=== PATIENT | male | born 2005 | race Caucasian/White ===

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

== ENCOUNTER 2023-01-08 14:36 | Emergency (ER) | payer BC, SELFPAY ==
--- NOTE | ~2023-01-08 | XR_ITS ---
EXAM: XR hand RT min 3V DATE: 01/08/2023 14:48 HISTORY: injury, RIGHT HAND 5TH METACARPAL LATERAL LACERATION, PAIN . COMPARISON: None available. FINDINGS: Normal mineralization. No fracture or dislocation. No lytic or blastic lesion. Joint space s are maintained. No erosion or periosteal change. Soft tissue defect over the medial aspect of the h and. IMPRESSION: No acute osseous finding in the right hand. Reviewed, dictated and finalized at location K.
[2023-01-08 15:06] VITALS: BP 110/62; PULSE 82; RESP 18; TEMP 36.5; O2SAT 100
--- NOTE | 2023-01-08 17:25 | ED.GENADULT ---
HPI - General Adult General Chief complaint: Wound/Laceration Stated complaint: hand injury Time Seen by Provider: 01/08/23 17:00 Source: patient Mode of arrival: ambulatory Limitations: no limitations History of Present Illness HPI narrative: This is a 17-year-old male who presents to the ED with chief complaint of right hand injury occurring around 11 AM this morning. Patient reports that he was working with a piece of cardboard and a 2 x 4 board when the 2 x 4 splintered off and punctured his right hand. Reports location of wound is the ulnar right hand. Reports bleeding controlled. Denies any further site of pain or injury. Denies numbness. He has a complaint of difficulty with adduction the R hand pinky. Related Data Home Medications Medication Instructions Recorded Confirmed No Home Medications 03/11/20 10/07/20 Allergies Allergy/AdvReac Type Severity Reaction Status Date / Time amoxicillin Allergy Mild Rash Verified 01/08/23 16:45 PMFSH Past Medical History Medical History Healthy adult male Surgical History Surgical History H/O elbow surgery History of adenoidectomy History of placement of ear tubes Family History Family History Other Carcinoma of colon Cerebrovascular accident Depression Diabetes mellitus Heart disease Hypertension Liver cancer Uterine cancer Social History Social History Substance use type: hallucinogens Gender identity (if verbalized by the patient): Male Exam Narrative: GENERAL: Well-appearing, well-nourished, and in no acute distress. HEAD: Normocephalic, atraumatic. EYES: PERRLA and EOMI. ENT: Nares clear, no rhinorrhea or epistaxis. Mucous membranes moist. Oropharynx without tonsillar hypertrophy exudate or other lesions. NECK: Supple. No adenopathy or masses. CHEST: No respiratory distress. Clear to auscultation. No wheezes rales or rhonchi HEART: Regular rate and rhythm. No murmur heard. Normal peripheral pulses. ABDOMEN: Soft, nontender, nondistended, normal active bowel sounds. MSK: RUE: He is able to fully make a fist and extend all digits of the right hand. No obvious deformity. No bruising. Minimal tenderness throughout the hand. LUE: Benign SKIN: Small superficial puncture wound laceration to the right hand mid MCP area. No active bleeding. No overt contamination. NEURO: Alert and oriented x3. No focal deficits. Neurovascularly intact distally throughout the extremities. PSYCH: Normal mood and affect. Course Vital Signs Vital signs: Vital Signs Temperature 97.7 F 01/08/23 15:06 Pulse Rate 82 01/08/23 15:06 Respiratory Rate 18 01/08/23 15:06 Blood Pressure 110/62 01/08/23 15:06 Pulse Oximetry 100 01/08/23 15:06 Temperature 97.7 F 01/08/23 15:06 Pulse Rate 82 01/08/23 15:06 Respiratory Rate 18 01/08/23 15:06 Blood Pressure 110/62 01/08/23 15:06 Pulse Oximetry 100 01/08/23 15:06 Procedures Laceration Laceration 1: Date: 01/08/23 Time: 18:10 Site: hand Side (If applicable): right Size (cm): 1 Description: irregular Depth: simple, single layer Pre-repair: wound explored, irrigated extensively and deep structures intact ====== Skin Level ====== Skin layer closed with: steri strips ====== Subcutaneous Layer ====== ====== Muscle Layer ====== ====== Tendon Layer ====== Dressin steri strip Medical Decision Making [facility] Narrative Medical decision making narrative: This is a 17-year-old male who presents to the ED with chief complaint of right hand injury occurring at work today. He has a small 1 cm, superficial laceration to the ulnar right hand. Vitals are normal.
== END 2023-01-08 18:25 | disposition home or self-care (01) ==
PROVIDERS: Emergency Provider Physician Assistant
DX: S61.411A Laceration without foreign body of right hand, initial encounter (principal); W45.8XXA Other foreign body or object entering through skin, initial encounter
CPT/HCPCS: 73130; 99283

== ENCOUNTER 2023-05-15 19:16 | Emergency (ER) | payer MEDICAID, SELFPAY ==
--- NOTE | 2023-05-15 19:32 | ED.URI ---
HPI - URI/Sore Throat General Stated Complaint: sorethroat Time Seen by Provider: 05/15/23 19:32 Source: patient Mode of arrival: ambulatory Limitations: no limitations History of Present Illness HPI Narrative: Yovani is a 17-year-old male patient presenting to the clinic today with complaints of a sore throat x1 day. He reports his sore throat got worse today and he developed a headache. Does have slight congestion and a cough as well. No fever or chills. No known exposure to anyone with COVID, flu, or strep. MD elicited complaint: cough, sore throat and nasal congestion Related Data Home Medications Medication Instructions Recorded Confirmed No Home Medications 03/11/20 05/15/23 Allergies Allergy/AdvReac Type Severity Reaction Status Date / Time amoxicillin AdvReac Mild Rash Verified 05/15/23 19:37 Review of Systems Review of Systems: Pertinent positives per HPI. Patient denies any fever, chills, rash, headache, visual changes, dizziness, shortness of breath, chest pain, palpitations, nausea, vomiting, diarrhea, constipation, abdominal pain, or any urinary issues. PMFSH Past Medical History Medical History Healthy adult male Surgical History Surgical History H/O elbow surgery History of adenoidectomy History of placement of ear tubes Family History Family History Other Carcinoma of colon Cerebrovascular accident Depression Diabetes mellitus Heart disease Hypertension Liver cancer Uterine cancer Social History Social History Substance use type: hallucinogens Gender identity (if verbalized by the patient): Male Comments At the time of my signature, I reviewed and agree with the nursing past medical, surgical, social, and family history. There is no relevant family history pertinent to the patient complaint. Exam Narrative: General: Well-developed, well nourished, in no apparent distress Head: Normocephalic, atraumatic Eyes: Pupils equally round and reactive to light bilaterally, EOM intact, sclera and conjunctive clear, no discharge, lids normal Ears: TMs intact and clear, ear canals clear, no drainage, grossly hearing normal. Nose: Nares patent, clear nasal discharge, no inflammation, no sinus tenderness. Mouth: Oral pharynx without lesions or masses, good dentition, MMM. Neck: Supple, trachea midline, no enlargement of anterior or posterior cervical nodes, no thyroid masses or goiter palpable. Cardio: Regular rate and rhythm, s1 and s2 normal, no murmur appreciated. Resp: Clear to auscultation bilaterally, no rhonchi, rales, wheezing or rubs Course Course Emergency Course: Portions of this record may have been created with voice recognition software. Level of Care: Express Care Visit Vital Signs Vital signs: Vital signs reviewed MDM - URI/Sore Throat MDM Narrative Medical decision making narrative: At the time of visit patient is resting comfortably on the exam table. Strep screen was obtained and negative in the clinic today. I suspect patient has URI pharyngitis. Patient is nontoxic appearing. Supportive measures were discussed with the patient he voiced understanding discharge instructions agrees to treatment plan. Differential Diagnosis Differential diagnosis: Likely upper respiratory infection, otitis media, sinusitis, viral infection, bronchitis, influenza, pharyngitis and other (COVID) Discharge Plan Discharge Clinical Impression: Pharyngitis Qualifiers: Pharyngitis/tonsillitis etiology: unspecified etiology Qualified Code(s): J02.9 - Acute pharyngitis, unspecified URI (upper respiratory infection) Qualifiers: URI type: unspecified URI Qualified Code(s): J06.9 - Acute upper respiratory infection, unspecified
[2023-05-15 19:34] VITALS: BP 133/74; PULSE 88; RESP 16; TEMP 36.3; O2SAT 98
== END 2023-05-15 19:52 | disposition home or self-care (01) ==
PROVIDERS: Emergency Provider Nurse Practitioner Family; PCP Pediatrics
DX: J02.9 Acute pharyngitis, unspecified (principal); J06.9 Acute upper respiratory infection, unspecified
CPT/HCPCS: 87081; 87880; 99213; G0463

== ENCOUNTER 2023-06-04 21:32 | Emergency (ER) | payer SELFPAY ==
[2023-06-04 21:59] VITALS: BP 133/66; PULSE 69; RESP 15; TEMP 36.5; O2SAT 100
--- NOTE | 2023-06-04 22:33 | PC.NURSE ---
Patient was called out by triage desk with no answer
--- NOTE | 2023-06-04 22:42 | PC.NURSE ---
Patient again called to triage desk with no answer
== END 2023-06-04 22:33 | disposition left against medical advice (07) ==
PROVIDERS: PCP Pediatrics
DX: H92.02 Otalgia, left ear (principal)
CPT/HCPCS: 99199

== ENCOUNTER 2023-06-17 16:25 | Emergency (ER) | payer MEDICAID, SELFPAY ==
[2023-06-17 16:47] VITALS: BP 134/75; PULSE 99; RESP 18; TEMP 36.4; O2SAT 100
[2023-06-17 17:01] LABS: Basophils Percent Auto 0.3 % (0.2-1.2); Eosinophils Absolute Auto 0.1 K/mm3 (0-0.3); Eosinophils Percent Auto 0.3 % (0-4.4); Hematocrit 50.6 % (42.0-52.0); Hemoglobin 17.3 g/dL (14.0-18.0); Immature Granulocyte Absolute 0.06 K/mm3 (0.00-0.031); Immature Granulocyte Percent A 0.4 % (0-0.5); Lymphocytes Absolute Auto 0.37 K/mm3 (0.9-3.2); Lymphocytes Percent Auto 2.4 % (18.3-44.2); Mean Corpuscular HGB Conc 34.2 g/dl (32-36); Mean Corpuscular Hemoglobin 30.1 pg (26-34); Mean Corpuscular Volume 88.2 fl (80-100); Mean Platelet Volume 9.3 fl (7.4-10.4); Monocytes Absolute Auto 0.7 K/mm3 (0.1-0.6); Monocytes Percent Auto 4.5 % (2.6-8.5); Neutrophils Absolute Auto 13.9 K/mm3 (1.3-6.7); Neutrophils Percent Auto 92.1 % (45.5-73.1); Platelet Count Result 139 k/mm3 (150-375); Red Blood Count 5.74 M/mm3 (4.6-6.20); White Blood Count 15.1 K/mm3 (4.5-10.0)
[2023-06-17 17:39] LABS: Alanine Aminotransferase 19 U/L (6-50); Alkaline Phosphatase 91 U/L (58-237); Anion Gap 12 mmol/L (8-16); Aspartate Amino Transferase 23 U/L (17-59); Blood Urea Nitrogen 15 mg/dL (8-21); Calcium 9.5 mg/dL (8.9-10.7); Carbon Dioxide 22 mmol/L (22-30); Chloride 106 mmol/L (98-107); Estimated CRCL calculation 160 ml/min; Estimated Glomerular Filt Rate > 60; Glucose 116 mg/dL (65-110); Lipase 46 U/L (23-300); Sodium 140 mmol/L (134-143)
[2023-06-17] MEDS: MORPHINE SULFATE (*CRX) 4 MG/ML INJ IV PUSH (19:07)
[2023-06-17] MEDS: ONDANSETRON INJ 4 MG/2 ML VIAL IV PUSH (19:07)
[2023-06-17] MEDS: SODIUM CHLORIDE 0.9% IV 1,000 ML 999 ML IV CONT (19:07)
[2023-06-17 19:11] LABS: Appearance Urine Clear (Clear); Bacteria Urine None Seen /hpf; Bilirubin Urine 1+ (Negative); Blood Urine Negative (Negative); Color Urine Dark Yellow (Yellow); Glucose Urine UA Negative (Negative); Ketones Urine 1+ mg/dL (Negative); Leukocyte Esterase Ur Trace LEU/UL (Negative); Nitrate Urine Negative (Negative); Protein Urine 1+ mg/dL (Negative); RBC Urine 0-2 /hpf (0-2); Squamous Epithelial Cell Urine None seen /hpf (Few); WBC Urine 0-5 /hpf; pH Urine 7.5 (5.0-9.0)
[2023-06-17 19:12] LABS: Specific Grav Ur 1.037 (1.001-1.035)
[2023-06-17 19:13] LABS: Add Urine Microscopic? YES
--- NOTE | 2023-06-17 19:58 | ED.ABDPAIN ---
HPI - Abdominal Pain General Chief Complaint: Abdominal Pain Stated Complaint: stomach issues Time Seen by Provider: 06/17/23 17:30 History of Present Illness HPI narrative: Patient is a 17-year-old male who presents ER with abdominal cramping and pain. Sudden onset this morning. Reports numerous episodes of emesis and diarrhea. No known sick contacts. Reports he ate some chicken salad last night but so did the rest of his family and they are not sick. No blood in his stool. No fevers or chills. No alleviating factors at home. Related Data Allergies Allergy/AdvReac Type Severity Reaction Status Date / Time amoxicillin AdvReac Mild Rash Verified 05/15/23 19:37 Review of Systems Review of Systems: All systems reviewed & are unremarkable except as noted in HPI and below Constitutional: Constitutional: Reports no additional constitutional complaints ENT: Reports system reviewed and no additional complaints, except as documented Cardiovascular: Cardiovascular: Reports no additional cardiovascular complaints Respiratory: Respiratory: Reports no additional respiratory complaints Gastrointestinal: Gastrointestinal: Reports abdominal pain, Denies constipation, Reports diarrhea, Reports nausea and Reports vomiting Genitourinary: Genitourinary: Reports no additional male genitourinary complaints [facility] Past Medical History Medical History Healthy adult male Surgical History Surgical History H/O elbow surgery History of adenoidectomy History of placement of ear tubes Family History Family History Other Carcinoma of colon Cerebrovascular accident Depression Diabetes mellitus Heart disease Hypertension Liver cancer Uterine cancer Social History Social History Substance use type: hallucinogens Gender identity (if verbalized by the patient): Male Exam Narrative: GENERAL: Fatigued-appearing, well-nourished, and in no acute distress. HEAD: Normocephalic, atraumatic. ENT: Mucous membranes moist. NECK: Supple. CHEST: Clear to auscultation. No respiratory distress. HEART: Regular rate and rhythm. Normal peripheral pulses. ABDOMEN: Soft, diffuse abdominal discomfort without localizing tenderness, nondistended. EXTREMITIES: Normal range of motion. No edema. SKIN: Warm, dry, no rash. NEURO: Alert and oriented x3. PSYCH: Normal mood and affect. Course Course Emergency Course: patient received morphine and Bentyl for abdominal pain and cramping. Zofran for nausea vomiting. Hydrated. Patient felt appropriate for discharge home and it is not felt patient needs advanced imaging is repeat exam demonstrates no localizing pain. Vital Signs Vital signs: Vital Signs Temperature 97.5 F L 06/17/23 16:47 Pulse Rate 99 06/17/23 16:47 Respiratory Rate 18 06/17/23 16:47 Blood Pressure 134/75 06/17/23 16:47 Pulse Oximetry 100 06/17/23 16:47 Oxygen Delivery Room Air 06/17/23 16:47 Temperature 97.5 F L 06/17/23 16:47 Pulse Rate 99 06/17/23 16:47 Respiratory Rate 18 06/17/23 16:47 Blood Pressure 134/75 06/17/23 16:47 Pulse Oximetry 100 06/17/23 16:47 Oxygen Delivery Room Air 06/17/23 16:47 MDM - Abdominal Pain Lab Data 06/17/23 16:33 06/17/23 16:33 Labs: Lab Results 06/17/23 06/17/23 Range/Units 16:33 18:45 WBC 15.1 H (4.5-10.0) K/mm3 RBC 5.74 (4.6-6.20) M/mm3 Hgb 17.3 (14.0-18.0) g/dL Hct 50.6 (42.0-52.0) % MCV 88.2 (80-100) fl MCH 30.1 (26-34) pg MCHC 34.2 (32-36) g/dl RDW 12.0 (11.5-14.5) % Plt Count 139 L (150-375) k/mm3 MPV 9.3 (7.4-10.4) fl Immature Gran % (Auto) 0.4 (0-0.5) % Neut % (Auto) 92.1 H (45.5-73.1) % Lymph % (Aut
[2023-06-17] MEDS: DICYCLOMINE HCL INJ 20 MG/2 ML VIAL IM (20:13)
[2023-06-17 20:44] VITALS: BP 132/78; PULSE 92; RESP 15; O2SAT 99
== END 2023-06-17 20:45 | disposition home or self-care (01) ==
PROVIDERS: Emergency Provider Emergency Medicine; PCP Pediatrics
DX: K52.9 Noninfective gastroenteritis and colitis, unspecified (principal)
CPT/HCPCS: 36415; 80053; 81001; 83690; 85025; 96361; 96372; 96374; 96375; 99284; J0500; J2270; J2405; J7030

== ENCOUNTER 2023-11-27 12:03 | Emergency (ER) | payer OTHER, SELFPAY ==
--- NOTE | ~2023-11-27 | XR_ITS ---
Right ankle Technique: AP, oblique, and lateral views were obtained. Clinical History: Injury Findings: No acute fracture or dislocation is seen. Osseous alignment is anatomic. Ankle mortise and other visualized joint spaces are preserved. Soft tissues are otherwise unremarkable. Impression: Unremarkable right ankle. Reviewed, dictated and finalized at location . Impression: Unremarkable right ankle.
--- NOTE | ~2023-11-27 | XR_ITS ---
Right foot Technique: AP, oblique, and lateral views were obtained. Clinical History: Injury Findings: No acute fracture or dislocation is seen. Osseous alignment is anatomic. Joint spaces are p reserved without erosive or degenerative change. Soft tissues are unremarkable. Impression: Unremarkable right foot radiographs. Reviewed, dictated and finalized at location . Impression: Unremarkable right foot radiographs.
[2023-11-27 12:07] VITALS: BP 125/69; PULSE 91; RESP 16; TEMP 36.9; O2SAT 98
--- NOTE | 2023-11-27 13:26 | ED.LOWEXIN ---
HPI - Extremity Injury (Lower) General Chief Complaint: Extremity Injury, Lower Stated Complaint: right foot injury Time Seen by Provider: 11/27/23 12:34 Source: patient Mode of arrival: ambulatory Limitations: no limitations History of Present Illness HPI Narrative: Yovani is a 18-year-old male patient presenting to the emergency room with complaints of right ankle and foot injury. He reports he was at work and a skid caught the back of his foot and smashed his foot. Has bruising over the medial ankle and to the posterior foot with pain in his toes. He reports this occurred prior to arrival. He rates his pain 10 out currently. Related Data Allergies Allergy/AdvReac Type Severity Reaction Status Date / Time amoxicillin AdvReac Mild Rash Verified 11/27/23 12:10 Review of Systems Review of Systems: Pertinent positives per HPI. Patient denies any fever, chills, rash, headache, visual changes, dizziness, cough, runny nose, sore throat, shortness of breath, chest pain, palpitations, nausea, vomiting, diarrhea, constipation, abdominal pain, or any urinary issues. PMFSH Past Medical History Medical History Healthy adult male Surgical History Surgical History H/O elbow surgery History of adenoidectomy History of placement of ear tubes Family History Family History Other Carcinoma of colon Cerebrovascular accident Depression Diabetes mellitus Heart disease Hypertension Liver cancer Uterine cancer Social History Social History Substance use type: hallucinogens Gender identity (if verbalized by the patient): Male Comments At the time of my signature, I reviewed and agree with the nursing past medical, surgical, social, and family history. There is no relevant family history pertinent to the patient complaint. Exam Narrative: General: Well-developed, well nourished, in no apparent distress Head: Normocephalic, atraumatic. Cardio: Regular rate and rhythm, s1 and s2 normal, no murmur appreciated. Resp: Clear to auscultation bilaterally, no rhonchi, rales, wheezing or rubs. Musculoskeletal: No deformity, bruising noted over the medial ankle and the posterior heel, tender to palpation over the posterior heel of the foot, toes, and medial ankle, grossly normal range of motion, muscle strength strong and equal, peripheral pulse strong, no edema, no cyanosis, normal gait and station Course Course Emergency Course: Portions of this record may have been created with voice recognition software. Vital Signs Vital signs: Vital Signs Temperature 36.9 C 11/27/23 12:07 Pulse Rate 91 11/27/23 12:07 Respiratory Rate 16 11/27/23 12:07 Blood Pressure 125/69 11/27/23 12:07 Pulse Oximetry 98 11/27/23 12:07 Oxygen Delivery Room Air 11/27/23 12:07 Temperature 36.9 C 11/27/23 12:07 Pulse Rate 91 11/27/23 12:07 Respiratory Rate 16 11/27/23 12:07 Blood Pressure 125/69 11/27/23 12:07 Pulse Oximetry 98 11/27/23 12:07 Oxygen Delivery Room Air 11/27/23 12:07 Vital signs reviewed MDM - Extremity Injury (Lower) MDM Narrative Medical decision making narrative: At the time of visit patient is resting comfortably on the exam table. Patient appears to be nontoxic. Diagnostics: X-ray of the right foot and ankle were negative for any sign of fracture or malalignment. Plan: I suspect patient has a crush injury to the right foot and ankle. No sign of fracture. No redness or swelling noted at the time that he is in the ER. Patient is able to move joint/extremity. Supportive measures were discussed with the patient and they voiced understanding discharge instructions and agrees to treatment plan. Return precautions reviewed Differential
[2023-11-27] MEDS: HYDROcodone/acetaminophen (*CRX) 5-325 MG TABLET 1 TAB PO (13:32)
== END 2023-11-27 14:29 | disposition home or self-care (01) ==
PROVIDERS: Emergency Provider Nurse Practitioner Family
DX: S90.01XA Contusion of right ankle, initial encounter (principal); S90.31XA Contusion of right foot, initial encounter; W31.9XXA Contact with unspecified machinery, initial encounter
CPT/HCPCS: 73610; 73630; 99283; A9270

== ENCOUNTER 2024-01-15 16:32 | Emergency (ER) | payer OTHER, SELFPAY ==
[2024-01-15 16:34] VITALS: BP 129/73; PULSE 94; RESP 20; TEMP 36.3; O2SAT 99
--- NOTE | 2024-01-15 17:10 | ED.WOUNDLAC ---
HPI - Wound/Laceration General Chief Complaint: Wound/Laceration Stated Complaint: spider bite Time Seen by Provider: 01/15/24 16:57 Source: patient Mode of arrival: ambulatory Limitations: no limitations History of Present Illness HPI narrative: Patient is a 18-year-old male who presents the ED with report of a wound to his left lower leg. Patient reports he 1st noticed an area of redness to his left lower lateral leg 1.5 weeks ago. He assumed he was bitten by a spider. He did not actually see a spider. He states over the last 2 days, the area has become increasingly tender, red, with a central area of blackness. He has also noticed some pus-like drainage from the wound. Denies fevers. Related Data Allergies Allergy/AdvReac Type Severity Reaction Status Date / Time amoxicillin AdvReac Mild Rash Verified 01/15/24 16:39 Review of Systems Review of Systems: CONSTITUTIONAL: Denies fever, chills, or sweats. SKIN: See HPI NEUROLOGIC: Denies headache, dizziness, numbness, or weakness. All systems reviewed & are unremarkable except as noted in HPI and below PMFSH Past Medical History Medical History Healthy adult male Surgical History Surgical History H/O elbow surgery History of adenoidectomy History of placement of ear tubes Family History Family History Other Carcinoma of colon Cerebrovascular accident Depression Diabetes mellitus Heart disease Hypertension Liver cancer Uterine cancer Social History Social History Substance use type: hallucinogens Gender identity (if verbalized by the patient): Male Exam Narrative: GENERAL: Well appearing, well-nourished, non-toxic, in no acute distress. HEAD: Normocephalic, atraumatic. RESPIRATORY: Airway patent, respirations nonlabored. CARDIOVASCULAR: Regular rate and rhythm MUSCULOSKELETAL: Moves all extremities. No gross deformities. SKIN: Warm, dry, normal color. 2cm area of erythema, focal TTP, scab formation to L lateral proximal lower leg, just below knee joint space. Small area of central deep purple discoloration. No drainage. No skin sloughing or skin necrosis. Sensation intact. NEURO: A&O X3. Speech clear. PSYCHIATRIC: Appropriate mood and affect. Normal interaction. Course Vital Signs Vital signs: Vital Signs Temperature 97.4 F L 01/15/24 16:34 Pulse Rate 94 01/15/24 16:34 Respiratory Rate 20 01/15/24 16:34 Blood Pressure 129/73 01/15/24 16:34 Pulse Oximetry 99 01/15/24 16:34 Oxygen Delivery Room Air 01/15/24 16:34 Temperature 97.4 F L 01/15/24 16:34 Pulse Rate 94 01/15/24 16:34 Respiratory Rate 20 01/15/24 16:34 Blood Pressure 129/73 01/15/24 16:34 Pulse Oximetry 99 01/15/24 16:34 Oxygen Delivery Room Air 01/15/24 16:34 MDM - Wound/Laceration MDM Narrative Medical decision making narrative: Patient presented to ED with possible spider bite to left lower leg. Concerned for brown recluse spider bite. Exam possibly consistent with this, though no deep necrosis, no skin breakdown, no systemic signs of infection/toxicity. Additionally, sx's have been ongoing for 1.5 weeks. Given surrounding erythema, tenderness, report of pus-like drainage, will treat as cellulitis. Given 1st dose of doxycycline in the ED. Discussed further wound care, recommended that patient have follow-up with PCP for further evaluation. Given return precautions should symptoms worsen. Patient agrees w/ plan, discharged in stable condition. Medical Records Attestation: I reviewed the patient's medical records. Discharge Plan Discharge Clinical Impression: Cellulitis of left lower extremity Insect bite Qualifiers: Encounter type: initial encounter Site of insect bi
[2024-01-15] MEDS: DOXYCYCLINE HYCLATE 100 MG TABLET PO (17:13)
== END 2024-01-15 17:30 | disposition home or self-care (01) ==
PROVIDERS: Emergency Provider Physician Assistant
DX: L03.116 Cellulitis of left lower limb (principal); S80.862A Insect bite (nonvenomous), left lower leg, initial encounter; W57.XXXA Bitten or stung by nonvenomous insect and other nonvenomous arthropods, initial encounter
CPT/HCPCS: 99283; A9270

== ENCOUNTER 2024-03-10 16:58 | Emergency (ER) | payer OTHER, SELFPAY ==
--- NOTE | ~2024-03-10 | XR_ITS ---
EXAMINATION: XR chest 2V Exam Date/Time: 03/10/2024 19:00 CDT HISTORY: cough, chest pain Comparison: 07/23/2006. RESULT: Lines, tubes, and devices: None. Lungs and pleura: Clear. Cardiomediastinal silhouette: Stable. Other: No acute osseous or upper abdominal finding. IMPRESSION: No acute cardiopulmonary process. Reviewed, dictated and finalized at location K.
--- NOTE | ~2024-03-10 | CT_ITS ---
EXAMINATION: CTA chest PE protocol DATE: 03/10/2024 22:35 INDICATION: left sided chest pain, sob, recent trauma TECHNIQUE: Computed tomography angiography (CTA) of the chest was performed with 100 mL Omnipaque-350 intravenous contrast timed to evaluate the pulmonary arteries. Coronal maximum intensity projection 3D-reconstructions were created by the technologist. The dose-length product (DLP) was 317.82 mGy-cm. Automated exposure control and iterative reconstruction technique were employed. COMPARISON: X-ray chest, same date. FINDINGS: Lung parenchyma and airways: Clear. Pleura: Unremarkable. Thoracic inlet, axillae and chest wall: Mild bilateral gynecomastia. Thoracic aorta: No significant dilation. No dissection. Mediastinum: Normal. Heart and pericardium: Normal. Coronary artery calcifications: Absent. Upper abdomen: No significant finding. Bones: No acute osseous finding. Pulmonary arteries: Study quality: Adequate. No pulmonary emboli detected. IMPRESSION: No CT evidence of acute pulmonary embolus. No acute process detected in the chest. Reviewed, dictated and finalized at location K.
[2024-03-10 17:06] VITALS: BP 113/89; PULSE 86; RESP 18; TEMP 36.4; O2SAT 99
--- NOTE | 2024-03-10 18:56 | ECG_ITS ---
Test Date: 2024-03-10 21:37:00 Measurements Intervals [place] Rate: 81 P: 25 WV: 131 QRS: 88 QRSD: 110 T: 49 QT: 341 QTc: 398 Interpretive Statements SINUS RHYTHM INCOMPLETE RIGHT BUNDLE BRANCH BLOCK ST ELEVATION IN ANTERIOR LEADS, PROBABLY EARLY REPOLARIZATION BORDERLINE ECG No previous ECG available for comparison Electronically Signed On 03-11-2024 05:34:14 CDT by Isac Cui D.O.
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
[2024-03-10 19:36] LABS: Influenza A QL RT-PCR Negative (Negative); Influenza B QL RT-PCR Negative (Negative); RSV RNA, RT-PCR Negative (Negative); SARS-CoV-2 RNA PCR Negative (Negative)
[2024-03-10] MEDS: HYDROcodone/acetaminophen (*CRX) 5-325 MG TABLET 1 TAB PO (21:28)
[2024-03-10 21:32] VITALS: BP 131/79; PULSE 82; RESP 18; O2SAT 100
[2024-03-10 21:32] LABS: Basophils Absolute Auto 0.1 K/mm3 (0.0-0.1); Basophils Percent Auto 0.6 % (0.2-1.2); Eosinophils Absolute Auto 0.3 K/mm3 (0-0.3); Eosinophils Percent Auto 4.4 % (0-4.4); Hematocrit 41.5 % (42.0-52.0); Hemoglobin 14.5 g/dL (14.0-18.0); Immature Granulocyte Absolute 0.03 K/mm3 (0.00-0.031); Immature Granulocyte Percent A 0.4 % (0-0.5); Lymphocytes Absolute Auto 3.48 K/mm3 (0.9-3.2); Lymphocytes Percent Auto 45.1 % (18.3-44.2); Mean Corpuscular HGB Conc 34.9 g/dl (32-36); Mean Corpuscular Hemoglobin 30.3 pg (26-34); Mean Corpuscular Volume 86.8 fl (80-100); Mean Platelet Volume 8.8 fl (7.4-10.4); Monocytes Absolute Auto 0.6 K/mm3 (0.1-0.6); Monocytes Percent Auto 7.9 % (2.6-8.5); Neutrophils Absolute Auto 3.2 K/mm3 (1.3-6.7); Neutrophils Percent Auto 41.6 % (45.5-73.1); Platelet Count Result 153 k/mm3 (150-375); Red Blood Count 4.78 M/mm3 (4.6-6.20); Red Cell Distribution Width 12.1 % (11.5-14.5); White Blood Count 7.7 K/mm3 (4.5-10.0)
[2024-03-10 21:43] LABS: Alanine Aminotransferase 16 U/L (6-50); Albumin Level 4.5 g/dL (3.5-5.1); Alkaline Phosphatase 82 U/L (38-126); Anion Gap 11 mmol/L (4-12); Aspartate Amino Transferase 23 U/L (17-59); Bilirubin,Total 0.8 mg/dL (0.2-1.3); Blood Urea Nitrogen 14 mg/dL (9-20); Calcium 9.1 mg/dL (8.4-10.2); Carbon Dioxide 26 mmol/L (22-30); Chloride 101 mmol/L (98-107); Estimated CRCL calculation 136 ml/min; Estimated Glomerular Filt Rate > 60; Glucose 91 mg/dL (65-110); Lipase 74 U/L (23-300); Potassium 4.3 mmol/L (3.4-5.0); Sodium 138 mmol/L (137-145)
[2024-03-10 21:48] LABS: Prothrombin Time 13.6 Seconds (11.1-14.7)
[2024-03-10 21:49] LABS: Partial Thromboplastin Time 29.1 Seconds (22.3-36.8)
[2024-03-10 21:55] LABS: Troponin I < 0.012 ng/mL (0.000-0.034)
[2024-03-10 22:07] LABS: D Dimer < 0.27 ug/mL (<0.48)
[2024-03-10 23:56] VITALS: BP 129/81; PULSE 86; RESP 17; O2SAT 99
== END 2024-03-11 01:27 | disposition home or self-care (01) ==
PROVIDERS: Registered Nurse; Emergency Provider Physician Assistant
DX: R07.9 Chest pain, unspecified (principal); Z20.822 Contact with and (suspected) exposure to COVID-19; I45.10 Unspecified right bundle-branch block
CPT/HCPCS: 36415; 71046; 71275; 80053; 83690; 84484; 85025; 85380; 85610; 85730; 87637; 93005; 99284; A9270; Q9967

== ENCOUNTER 2024-04-04 18:14 | Emergency (ER) | payer OTHER, SELFPAY ==
[2024-04-04 18:21] VITALS: BP 121/66; PULSE 100; RESP 16; TEMP 37.3; O2SAT 98
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
[2024-04-04 18:26] VITALS: BP 121/66; PULSE 100; RESP 16; TEMP 37.3; O2SAT 98
[2024-04-04 18:47] LABS: EDCOVIDSCREEN Negative (Negative); EDINFLUASCREEN Negative (Negative); EDINFLUBSCREEN Negative (Negative)
== END 2024-04-04 19:05 | disposition short-term general hospital (02) ==
PROVIDERS: Emergency Provider Nurse Practitioner Family
DX: R10.31 Right lower quadrant pain (principal); R10.32 Left lower quadrant pain; Z20.822 Contact with and (suspected) exposure to COVID-19
CPT/HCPCS: 87426; 87804; 99213; G0463

== ENCOUNTER 2024-04-04 19:16 | Emergency (ER) | payer OTHER, SELFPAY ==
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
[2024-04-04 19:22] VITALS: BP 109/63; PULSE 95; RESP 18; TEMP 36.6; O2SAT 100
[2024-04-04 19:51] VITALS: BP 131/83; PULSE 88; RESP 18; O2SAT 99
--- NOTE | 2024-04-04 20:09 | ECG_ITS ---
Test Date: 2024-04-04 20:31:10 Measurements Intervals [place] Rate: 88 P: 12 NE: 113 QRS: 94 QRSD: 113 T: 49 QT: 326 QTc: 396 Interpretive Statements SINUS RHYTHM WITH SHORT NE INTERVAL BORDERLINE RIGHT AXIS DEVIATION [QRS AXIS > 90] MODERATE INTRAVENTRICULAR CONDUCTION DELAY [110+ ms QRS DURATION] ST ELEVATION, PROBABLY EARLY REPOLARIZATION [ST ELEVATION WITH NORMALLY INFLECTED T WAVE] Compared to ECG 03/10/2024 21:37:00 Short NE interval now present Intraventricular conduction delay now present Incomplete right bundle-branch block no longer present ST (T wave) deviation still present Electronically Signed On 04-05-2024 08:30:47 CDT by Taras Brown M.D.
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
[2024-04-04] MEDS: PANTOPRAZOLE SODIUM IV 40 MG VIAL IV PUSH (20:46)
[2024-04-04] MEDS: SODIUM CHLORIDE 0.9% IV 1,000 ML 999 ML IV CONT (20:46)
[2024-04-04] MEDS: HYDROmorphone HCL INJ (*CRX) 1 MG/ML SYR 0.5 MG IV PUSH (20:46)
[2024-04-04] MEDS: ONDANSETRON INJ 4 MG/2 ML VIAL IV PUSH (20:46)
[2024-04-04 20:52] LABS: Basophils Percent Auto 0.4 % (0.2-1.2); Eosinophils Absolute Auto 0.2 K/mm3 (0-0.3); Eosinophils Percent Auto 1.8 % (0-4.4); Hematocrit 41.3 % (42.0-52.0); Hemoglobin 15.1 g/dL (14.0-18.0); Immature Granulocyte Absolute 0.04 K/mm3 (0.00-0.031); Immature Granulocyte Percent A 0.5 % (0-0.5); Lymphocytes Absolute Auto 1.65 K/mm3 (0.9-3.2); Lymphocytes Percent Auto 19.4 % (18.3-44.2); Mean Corpuscular HGB Conc 36.6 g/dl (32-36); Mean Corpuscular Hemoglobin 31.3 pg (26-34); Mean Corpuscular Volume 85.5 fl (80-100); Mean Platelet Volume 8.9 fl (7.4-10.4); Monocytes Absolute Auto 0.7 K/mm3 (0.1-0.6); Monocytes Percent Auto 8.5 % (2.6-8.5); Neutrophils Absolute Auto 5.9 K/mm3 (1.3-6.7); Neutrophils Percent Auto 69.4 % (45.5-73.1); Platelet Count Result 132 k/mm3 (150-375); Red Blood Count 4.83 M/mm3 (4.6-6.20); Red Cell Distribution Width 12.3 % (11.5-14.5); White Blood Count 8.5 K/mm3 (4.5-10.0)
[2024-04-04 21:02] LABS: Prothrombin Time 13.4 Seconds (11.1-14.7)
[2024-04-04 21:03] LABS: Partial Thromboplastin Time 30.5 Seconds (22.3-36.8)
[2024-04-04 21:07] LABS: Alanine Aminotransferase 22 U/L (6-50); Albumin Level 4.5 g/dL (3.5-5.1); Alkaline Phosphatase 86 U/L (38-126); Anion Gap 9 mmol/L (4-12); Aspartate Amino Transferase 30 U/L (17-59); Bilirubin,Total 1.6 mg/dL (0.2-1.3); Blood Urea Nitrogen 13 mg/dL (9-20); Carbon Dioxide 23 mmol/L (22-30); Chloride 104 mmol/L (98-107); Estimated CRCL calculation 141 ml/min; Estimated Glomerular Filt Rate > 60; Glucose 85 mg/dL (65-110); Lipase 54 U/L (23-300); Potassium 3.7 mmol/L (3.4-5.0); Sodium 136 mmol/L (137-145)
[2024-04-04 21:08] LABS: Lactic Acid Reflex 0.7 mmol/L (0.7-2.0)
[2024-04-04 21:22] LABS: Troponin I < 0.012 ng/mL (0.000-0.034)
[2024-04-04] MEDS: methocarbamoL 750 MG TABLET PO (22:15)
[2024-04-04] MEDS: MORPHINE SULFATE (*CRX) 4 MG/ML INJ IV PUSH (22:15)
[2024-04-04 22:47] VITALS: BP 132/75; PULSE 89; RESP 18; O2SAT 99
== END 2024-04-04 23:45 | disposition home or self-care (01) ==
PROVIDERS: Emergency Provider Student in an Organized Health Care Education/Training Program
DX: K92.0 Hematemesis (principal)
CPT/HCPCS: 36415; 71260; 74177; 80053; 83605; 83690; 84484; 85025; 85610; 85730; 87426; 87804; 93005; 96361; 96374; 96375; 99284; A9270; J1171; J2270; J2405; J2470; J7030; Q9967

== ENCOUNTER 2025-02-19 14:08 | Emergency (ER) | payer OTHER, SELFPAY ==
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
--- OUTSIDE RECORDS SUMMARY | 2025-02-19 14:12 | XMS_ITS | Clinical Summary ---
Author Organization [facility] Address [address] [place] [address] Care Team Providers Care Retail Sales Associate Bilingual Name Role Phone Pcp, None Primary Care Provider Yoselin Holder MD Unavailable Source Comments [facility],non-owned Affiliates and Associated Physician Practices is amultiple site organization consisting of ambulatory clinics and hospital sitesin [place], [place], [place] and [place]. This disclosure is being madepursuant to the Care Everywhere program and may not contain all information available regarding this patient. Last updated 18.[facility] Allergies Active Allergy Reactions Criticality Noted Date Comments Amoxicillin Unknown 01/20/2025 Bee Unknown 01/20/2025 Codeine GI Discomfort 08/30/2014 Medications * This document contains information received from the source organization and may not represent a complete record from that organization. * Be aware that medications may not be up to date on this document. Alwaysverify current medications with the patient. hydrOXYzine HCl (Atarax) 25 MG tabletIndications :Agitation,Anxiet y Take 1 (one) tablet by mouth 3 times daily as needed for Itching Reasons: Agitation, Feeling Anxious 21 tablet 01/28/20 25 1:39 PM CDT 025 Active apixaban (Eliquis) 2.5 MG tabletIndications :Prophylaxis of Venous Thromboembolism Take 1 (one) tablet by mouth 2 times daily for 35 days Reasons: Prevention of Unwanted Clot in Veins 70 tablet 01/28/20 25 1:39 PM CDT 025 2024 Active senna-docusate (Senokot-S) 8.6-50 MG tablet Take 2 (two) tablets by mouth 2 times daily 21 tablet 01/28/20 25 1:39 PM CDT Active vitamin D3 (Cholecalciferol) 25 MCG (1000 UNITS) tablet Take 1 (one) tablet by mouth once daily for 90 days 30 tablet 2 01/28/20 25 1:39 PM CDT 025 2024 Active gabapentin (Neurontin) 100 MG capsuleIndication s:Acute blood loss anemia,Closed fracture of shaft of right femur with routine healing, unspecified fracture morphology, subsequent encounter,Closed fracture of multiple ribs of left side with routine healing, subsequent encounter,Closed displaced fracture of anterior column of left acetabulum with routine healing, subsequent encounter,Closed displaced comminuted fracture of shaft of right femur with routine healing, subsequent encounter,Closed nondisplaced fracture of seventh cervical vertebra with routine healing, unspecified fracture morphology, subsequent encounter,Closed minimally displaced zone I fracture of sacrum with routine healing, subsequent encounter,Closed fracture of right inferior pubic ramus with routine healing, subsequent encounter Take 2 (two) capsules by mouth 3 times daily for 30 days 180 capsule 025 2024 Active methocarbamol (Robaxin) 750 MG tablet Take 1 (one) tablet by mouth every 6 hours 30 tablet Active acetaminophen (Tylenol) 500 MG tablet Take 2 (two) tablets by mouth every 6 hours as needed for Fever or Pain Maximum allowable Acetaminophen amount = 4 Grams (4000 mg) / 24 hours. 56 tablet 025 2024 Active oxyCODONE (Oxy-Ir) 5 MG capsuleIndication s:Trauma Take 1 (one) capsule by mouth every 6 hours as needed for Pain 10 capsule Active acetaminophen (Tylenol) 325 MG tablet Take 2 (two) tablets by mouth every 6 hours Maximum allowable Acetaminophen amount = 4 Grams (4000 mg) / 24 hours. 025 2024 Discontinued(L ist Clean-Up) gabapentin (Neurontin) 100 MG capsule Take 1 (one) capsule by mouth 3 times daily for 30 days 90 capsule 01/28/20 1:39 PM CDT 025 2024 Discontinued melatonin 10 MG Take 10 (ten) mg by mouth at bedtime 025 2024 Discontinued(L ist Clean-Up) methocarbamol (Robaxin) 750 MG tablet Take 1 (one) tablet by mouth every 6 hours 30 tablet 01/28/20 1:39 PM CDT 025 2024 Discontinued(R eorder) oxyCODONE, immediate release, (Roxicodone) 5 MG tabletIndications :Acute Pain Take 1 (one) tablet by mouth every 4 hours as needed Reasons: Acute Pain 28 tablet 01/28/20 1:39 PM CDT 025 2024 Discontinued(L ist Clean-Up) oxyCODONE (Oxy-Ir) 5 MG capsuleIndication s:Trauma Take 1 (one) capsule by mouth every 6 hours as needed for Pain 10 capsule 025 2024 Discontinued(C linical Decision) oxyCODONE (Oxy-Ir) 5 MG capsuleIndication s:Trauma Take 1 (one) capsule by mouth every 6 hours as needed for Pain 10 capsule 025 2024 Discontinued(R eorder) acetaminophen (Tylenol) 500 MG tablet Take 2 (two) tablets by mouth every 6 hours as needed for Fever or Pain Maximum allowable Acetaminophen amount = 4 Grams (4000 mg) / 24 hours. 2024 Discontinued(C linical Decision) gabapentin (Neurontin) 100 MG capsuleIndication s:Acute blood loss anemia,Closed fracture of shaft of right femur with routine healing, unspecified fracture morphology, subsequent encounter,Closed fracture of multiple ribs of left side with routine healing, subsequent encounter,Closed displaced fracture of anterior column of left acetabulum with routine healing, subsequent encounter,Closed displaced comminuted fracture of shaft of right femur with routine healing, subsequent encounter,Closed nondisplaced fracture of seventh cervical vertebra with routine healing, unspecified fracture morphology, subsequent encounter,Closed minimally displaced zone I fracture of sacrum with routine healing, subsequent encounter,Closed fracture of right inferior pubic ramus with routine healing, subsequent encounter Take 2 (two) capsules by mouth 3 times daily for 30 days 180 capsule 025 2024 Discontinued gabapentin (Neurontin) 100 MG capsuleIndication s:Acute blood loss anemia,Closed fracture of shaft of right femur with routine healing, unspecified fracture morphology, subsequent encounter,Closed fracture of multiple ribs of left side with routine healing, subsequent encounter,Closed displaced fracture of anterior column of left acetabulum with routine healing, subsequent encounter,Closed displaced comminuted fracture of shaft of right femur with routine healing, subsequent encounter,Closed nondisplaced fracture of seventh cervical vertebra with routine healing, unspecified fracture morphology, subsequent encounter,Closed minimally displaced zone I fracture of sacrum with routine healing, subsequent encounter,Closed fracture of right inferior pubic ramus with routine healing, subsequent encounter Take 2 (two) capsules by mouth 3 times daily for 30 days 180 capsule 025 2024 Discontinued(R eorder) methocarbamol (Robaxin) 750 MG tablet Take 1 (one) tablet by mouth every 6 hours 30 tablet 025 2024 Discontinued(R eorder) oxyCODONE (Oxy-Ir) 5 MG capsuleIndication s:Trauma Take 1 (one) capsule by mouth every 6 hours as needed for Pain 10 capsule 025 2024 Discontinued(R eorder) Active Problems Problem Noted Date Diagnosed Date Fall 01/19/2025 Fracture of right femur 01/19/2025 Acute pain 01/19/2025 Fracture of ramus of right pubis 01/19/2025 Pelvic fracture 01/19/2025 Acute blood loss anemia 01/19/2025 Subdural hematoma 01/19/2025 Fall, initial encounter 01/19/2025 Fall from tree, initial encounter 01/19/2025 Laceration of spleen, initial encounter 01/20/20 Closed fracture of shaft of right femur, unspecified fracture morphology, initial encounter 01/19/2025 Closed fracture of multiple ribs of left side, initial encounter 01/19/2025 Closed displaced fracture of anterior column of left acetabulum, initial encounter 01/19/2025 Moderate laceration of spleen, initial encounter 01/19/2025 Closed displaced comminuted fracture of shaft of right femur, initial encounter 01/19/2025 Closed nondisplaced fracture of seventh cervical vertebra, unspecified fracture morphology, initial encounter 01/19/2025 Closed minimally displaced z one I fracture of sacrum, initial encounter 01/19/2025 Closed fracture of right inf erior pubic ramus, initial encounter 01/19/2025 Intraparenchymal hematoma of brain with loss of consciousness of 30 minutes or less, unspecified laterality, initial encounter 01/19/2025 Sore throat 05/02/2017 Assessment & Plan (05/02/2017 2:54 PM SOFTWARE SUPPORT SPECIALIST): Assessment: Brittany reports 2 day history of sore throat w/ nasal congestion and rinnorhea. Rapid strep test at urgent care was negative. Pharyngeal edema and post nasal drip noted on physical exam. Blood culture results are pending. PT did receive single dose of Rocephin in ED. Plan: -No continuance of antibiotic treatment indicated at this time Assessment & Plan (05/02/2017 12:35 PM SOFTWARE SUPPORT SPECIALIST): Assessment: Brittany had a couple days of sore throat with associated nasal congestion and rhinorrhea. Given URI symptoms, strep would be less likely. Plan: - Brittany was given a dose of Rocephin in the ED; with lower suspicion for strep, would not plan to continue antibiotics (culture pending) Left knee pain 02/25/2015 Fracture, humerus, supracondylar 10/22/2009 Fall 10/21/2009 Overview (10/21/2009): Post reduction films. Syncope and collapse Resolved Problems Problem Noted Date Diagnosed Date Resolved Date Vasovagal syncope 05/01/2017 05/02/2017 Assessment & Plan (05/02/2017 2:50 PM SOFTWARE SUPPORT SPECIALIST): Assessment: Brittany is a 11 y/o [place] male with no significant PMH who presents for work up of syncope. PT and mom report he has had 3 episodes of syncope in the last 6 month, 2 while singing in voodoo and 1 yesterday afternoon. PT reports that Monday 04/30 evening, he began to feel sick w/ sore throat, and admits recent sick contacts at school. PT stayed home from school yesterday 05/01 and sat around most of the day. PT reports that he got up to get a bowl of cereal, and woke up next to broken bowl of cereal on ground. He called his mother, they went to . advised visit to CG. Given PT's extensive and benign workup including CMP, TSH, Trops, CBC, CXR, ECG, ECHO, vasovagal syncope is most likely diagnosis. Plan: -educate PT on salt/fluid intake -D/c home today -F/u PCP next week Assessment & Plan (05/02/2017 12:34 PM SOFTWARE SUPPORT SPECIALIST): Assessment: Brittany is an otherwise healthy male admitted for presumed vasovagal syncope. EKG and echo not diagnostic. Appearance of symptoms during illness (sore throat and URI symptoms) likely represents exacerbation related to mild decreased fluid balance. Arrhythmia unlikely. History not indicative of connective tissue disorder). Seizure unlikely given lack of post-ictal state and prior observed episodes. Plan: - Review OSH EKG with Cardiology - If Cardiology unconcerned with EKG, will plan to d/c home - encourage fluid intake and salt intake - Follow-up with PCP next week Assessment & Plan (05/01/2017 11:20 PM SOFTWARE SUPPORT SPECIALIST): Assessment: Brittany is an otherwise healthy 11 yo male who presents following syncopal episode earlier today of unclear etiology. He also reports recent weight loss and polydipsia. Was found to have non-diagnostic RBBB on ECG and has had persistently positive orthostatics despite fluid resuscitation. Differential includes neurocardiogenic syncope, though does not explain positive orthstats. Viral illness and associated myocarditis would explain fever, elevated WBC and URI symptoms, though does not explain recent weight loss or again positive orthostats. Viral illness also does explain previous incidence. Some aspect of diabetes insipidus vs adrenal insufficiency could explain hypotension and polyuria, though labs are WNL. He requires admission for further workup of syncopal cause. Plan: - Admit to Clin Med, Dr. Andujar - mIVF with D5 1/2NS 20 KCl at 100 ml/hr - Regular diet, encourage fluids - Repeat orthostats in AM - Cardiology consult--current plan for echo tomorrow - Obtain AM cortisol - Continuous cardiorespiratory monitoring - Follow blood culture - Vitals q4h - I/Os Encounters Date Type Department Care Team Description 02/17/2025 Orders Only [facility] PHYS SURGERY [address] [place] [phone] Waldo Alvarez MD Trauma 02/16/2025 Refill [facility] PHYS SURGERY [address] [place] [address] Norberto Wilson MD MEDICATION REFILL 02/16/2025 Telephone [facility] - Orthopedics [address] [place] [phone] Brooke Fairchild MD Refill Request 02/12/2025 9:48 AM CDT - 02/12/2025 11:59 PM CDT Hospital Encounter [facility] DIAGNOSTIC RAD [address] [facility] [place] [address] Yamini Coyne, FURNACE CHARGING MACHINE OPERATOR-TRACTOR CRANE ENGINEER Discharge Disposition: Home or Self Care 02/12/2025 9:48 AM CDT - 02/12/2025 11:59 PM CDT Hospital Encounter [facility] DIAGNOSTIC RAD [address] [facility] [place] [address] Yamini Coyne, FURNACE CHARGING MACHINE OPERATOR-TRACTOR CRANE ENGINEER Discharge Disposition: Home or Self Care 02/12/2025 9:05 AM CDT - 02/12/2025 9:47 AM CDT Hospital Encounter [facility] DIAGNOSTIC RAD [address] [facility] [place] [address] Brooke Fairchild MD Discharge Disposition: Home or Self Care 02/12/2025 8:30 AM CDT Office Visit [facility] - Orthopedics [address] [place] [phone] Brooke Fairchild MD McCutchen, Kailey J, FURNACE CHARGING MACHINE OPERATOR-TRACTOR CRANE ENGINEER Closed nondisplaced fracture of anterior wall of left acetabulum, initial encounter (HCC) (Primary Dx); Trauma; Closed fracture of ramus of right pubis with routine healing, subsequent encounter; Closed fracture of shaft of right femur with routine healing, unspecified fracture morphology, subsequent encounter 02/12/2025 Travel 02/09/2025 Telephone [facility] TRAUMA [address] [place] [address] Jorge Anne, FURNACE CHARGING MACHINE OPERATOR-TRACTOR CRANE ENGINEER Refill Request (Requesting refill of robaxin) 02/09/2025 Orders Only [facility] - Orthopedics [address] [facility] [place] [address] Brooke Fairchild MD Closed fracture of shaft of right femur, unspecified fracture morphology, initial encounter (HCC) 02/08/2025 Orders Only [facility] PHYS NEUROSURGERY [address] [place] [address] Doroteo De La Vega MD 02/02/2025 9:00 AM CDT Office Visit Transitional Care at [address] [phone] Wilbert Chaudhry II, MD Hospital discharge follow-up (Primary Dx); Fall from tree, subsequent encounter; Acute blood loss anemia; Laceration of spleen, subsequent encounter; Closed fracture of shaft of right femur with routine healing, unspecified fracture morphology, subsequent encounter; Closed fracture of multiple ribs of left side with routine healing, subsequent encounter; Closed displaced fracture of anterior column of left acetabulum with routine healing, subsequent encounter; Closed displaced comminuted fracture of shaft of right femur with routine healing, subsequent encounter; Closed nondisplaced fracture of seventh cervical vertebra with routine healing, unspecified fracture morphology, subsequent encounter; Closed minimally displaced zone I fracture of sacrum with routine healing, subsequent encounter; Closed fracture of right inferior pubic ramus with routine healing, subsequent encounter; Subdural hematoma (HCC); Intraparenchymal hematoma of brain with loss of consciousness of 30 minutes or less, unspecified laterality, initial encounter (HCC) 01/31/2025 Orders Only [facility] TRAUMA [address] [place] [address] Quintin Pittman MD Trauma 01/30/2025 Transitional Care [facility] CARE COORDINATION [address] [place] [address] Mary Molina, RN Transitions Of Care 01/28/2025 Transitional Care [facility] CARE COORDINATION [address] [place] [phone] Mary Molina, YANDEL Transitions Of Care 01/28/2025 Transitional Care [facility] CARE COORDINATION [address] [place] [phone] Mary Molina, YANDEL Transitions Of Care 01/21/2025 Travel 01/20/2025 9:30 AM CDT - 01/20/2025 12:46 PM CDT Surgery [facility] ALEXY OP [address] [place] [phone] Brooke Fairchild MD INTRAMEDULLARY (IM) NAILING FEMUR 01/20/2025 9:16 AM CDT Anesthesia Event [facility] OP [address] [place] [phone] Mily Hood DO Abi Karam, Marc, MD 01/19/2025 3:48 PM CDT - 01/27/2025 1:25 PM CDT Hospital Encounter [facility] 5S ACUTE [address] [place] [phone] Norberto Arcos MD Wojcik, Brandon M, MD Tenquist, Sameera Swann MD Surgery General Discharge Disposition: Home or Self Care 01/19/2025 Travel from Last 3 Months Immunizations Immunization Administration Dates Next Due INFLUENZA VACCINE, QUADR. (F LUZONE; FLULAVAL; FLUARIX; AFLURIA QUADRIVALENT; 6MO+), 0.5 ML (IIV4) 05/02/2017 TDAP (7yrs+) 01/19/2025 Family History Medical History Relation Name Comments Diabetes - Type 2 Maternal Grandfather Other - Cardiac Maternal Grandmother Allergy (Severe) Neg Hx Anesthesia Reaction Neg Hx Arrhythmia Neg Hx Asthma Neg Hx Broken Bones Neg Hx Cancer Neg Hx Cardiomyopathy Neg Hx Clotting Disorder Neg Hx Collagen Disease Neg Hx Congenital Heart defect Neg Hx Diabetes Neg Hx Dislocations Neg Hx Hypercholesterolemia Neg Hx Hypertension Neg Hx PR Neg Hx Marfan Syndrome Neg Hx Osteoporosis Neg Hx Rheumatological Disease Neg Hx Scoliosis Neg Hx Severe Sprains Neg Hx Sickle Cell Anemia Neg Hx Sudd. <30 Neg Hx Thyroid Disease Neg Hx Relation Name Status Comments Maternal Grandfather Maternal Grandmother Social History Tobacco Use Types Packs/Day Years Used Date Smoking Tobacco: Never Smokeless Tobacco: Never Tobacco Cessation:Counseling Given: Not Answered Alcohol Use Standard Drinks/Week Comments Not Currently [...] and heating? Not hard at all 01/20/2025 [facility] - Occupational Stress Questionnaire Answer Date Recorded [...] any time in the past 12 [facility], were you homeless or living in a care home (including now)? No 01/20/2025 Sex and Gender Information Value Date Recorded Sex Assigned at Not on file Legal Sex Male 5:44 AM SOFTWARE SUPPORT SPECIALIST Gender Identity Not on file Sexual Orientation Not on file Last Filed Vital Signs Vital Sign Reading Time Taken Comments Blood Pressure 128/82 02/02/2025 9:05 AM CDT Pulse 96 02/02/2025 9:05 AM CDT Temperature 37.4 C (99.3 F) 02/02/2025 9:05 AM CDT Respiratory Rate 20 02/02/2025 9:05 AM CDT Oxygen Saturation 99% 02/02/2025 9:05 AM CDT Inhaled Oxygen Concentration - - Weight 84.8 kg (187 lb) 02/12/2025 9:19 AM CDT Height 190.5 cm (6' 3) 02/02/2025 9:05 AM CDT Body Mass Index 23.37 02/02/2025 9:05 AM CDT Plan of Treatment Upcoming Encounters Date Type Department Care Team (Late st Contact Info) Description 03/05/2025 2:15 PM CDT Office Visit [facility] - Neurosurgery [address] [place] [address] [place] [phone] Tamiko Spears, FURNACE CHARGING MACHINE OPERATOR-TRACTOR CRANE ENGINEER [address] [place] [address] 03/19/2025 9:00 AM CDT Office Visit [facility] - Orthopedics [address] [place] [phone] Brooke Fairchild MD [address] [place] [address] [place] [address] Health Maintenance Due Date Last Done Comments HIV SCREENING 10/29/2018 HPV VACCINE (1 - Male 3-dose series) 10/29/2018 MENINGOCOCCAL (Group B) VACC INE SHARED DECISION-MAKING (1 of 2 - Standard) 2019 HEPATITIS C SCREENING 10/25/2021 HEPATITIS B VACCINE (1 of 3 - 19+ 3-dose series) 10/29/2022 COVID-19 VACCINE (1 - 2023-2 5 season) 2024 DEPRESSION SCREENING 06/25/2024 INFLUENZA VACCINE (#1) 2025 05/02/2017 DTAP/TDAP/TD VACCINES (2 - T d or Tdap) 01/19/2035 01/19/2025 ZOSTER VACCINE (1 of 2) 10/29/2053 HIB VACCINE Aged Out No longer eligi ble based on patient's age to complete this topic MENINGOCOCCAL GROUPS A/C/Y/W VACCINE Aged Out No longer eligible b ased on patient's age to complete this topic PNEUMOCOCCAL VACCINE Aged Out No long er eligible based on patient's age to complete this topic Medical Devices Implanted Type Area Senior Software Qa Analyst Device Identifier Shelf Expiration Date Model / Serial / Lot Rfna / 11mm / 400mm Standard Bend / Sterile Implanted:Qty: 1 on 01/20/2025 by Brooke Fairchild MD at [facility] Right: Femur [employer] [facility] 11/[birth year]/2034 [id number] / / [id number] Tulio Screw 5mm 42mm Lck Bone Implanted:Qty: 1 on 01/20/2025 by Brooke Fairchild MD at [facility] Right: Fem[employer] [facility] [id number] BILL ONLY / / Tulio Screw 5mm 60mm Lck Im Nail Bone Implanted:Qty: 1 on 01/20/2025 by Brooke Fairchild MD at [facility] Right: Fem[employer] [facility] [id number] BILL ONLY / / Tulio Screw 5mm 90mm Lck Im Nail Bone Implanted:Qty: 1 on 01/20/2025 by Brooke Fairchild MD at [facility] Right: Femur [employer] [facility] [id number] BILL ONLY / / Procedures Procedure Name Priority Date/Time Associated Diagnosis Comments XR PELVIS JUDET VIEWS Routine 02/12/2025 10:02 AM CDT Closed nondisplaced fracture of anterior wall of left acetabulum, initial encounter ([facility]) XR PELVIS AP W INLET OUTLET Routine 02/12/2025 10:01 AM CDT Closed nondisplaced fracture of anterior wall of left acetabulum, initial encounter (HCC) XR FEMUR RIGHT 2VW Routine 02/12/2025 9: 15 AM CDT Closed fracture of shaft of right femur, unspecified fracture morphology, initial encounter (HCC) PHOSPHORUS BLOOD Routine 01/24/2025 4:09 AM CDT MAGNESIUM BLOOD Routine 01/24/2025 4:09 AM CDT BASIC METABOLIC PANEL (CALCIUM TOTAL) AM Draw 01/24/2025 4:09 AM CDT CBC W AUTO DIFFERENTIAL AM Draw 01/24/2025 4:09 AM CDT PHOSPHORUS BLOOD STAT 01/23/2025 9:21 AM CDT MAGNESIUM BLOOD STAT 01/23/2025 9:21 AM CDT CBC W AUTO DIFFERENTIAL STAT 01/23/2025 9:21 AM CDT BASIC METABOLIC PANEL (CALCIUM TOTAL) STAT 01/23/2025 9:21 AM CDT EKG 12-LEAD Routine 01/21/2025 8:54 PM CDT Subdural hematoma (HCC) CT HEAD WO CONTRAST STAT 01/21/2025 4 :48 PM CDT Intraparenchymal hematoma of brain with loss of consciousness of 30 minutes or less, unspecified laterality, initial encounter (HCC) XR CERVICAL SPINE 2 OR 3VW Routine 01/21/2025 4:33 PM CDT Fall from tree, initial encounter XR CHEST 1VW PORTABLE Routine 01/21/2025 5:12 AM CDT Fall from tree, initial encounter CBC W AUTO DIFFERENTIAL Timed 01/21/2025 3:42 AM CDT CALCIUM IONIZED WHOLE BLOOD Routine 01/21/2025 3:42 AM CDT MAGNESIUM BLOOD Routine 01/21/2025 3:42 AM CDT PHOSPHORUS BLOOD Timed 01/21/2025 3:42 AM CDT BASIC METABOLIC PANEL (CALCIUM TOTAL) Timed 01/21/2025 3:42 AM CDT BASIC METABOLIC PANEL (CALCIUM TOTAL) STAT 01/20/2025 3:28 PM CDT CBC W AUTO DIFFERENTIAL STAT 01/20/2025 3:28 PM CDT XR FEMUR RIGHT 2VW STAT 01/20/2025 12 :53 PM CDT Acute blood loss anemia FL DAYANARA SURGERY Routine 01/20/2025 11:15 AM CDT Closed fracture of shaft of right femur, unspecified fracture morphology, initial encounter ([facility]) ENDOTRACHEAL TUBE NOTE Routine 01/20/2025 9:58 AM CDT CO LENNOX SUBQ TISSUE 20 SQ CM/< 01/20/2025 8:50 AM CDT Fracture Special Needs JAZMYN DAYANARA Lamin 01/20 @ 0531 CW CO OPEN RX FEMUR FX+INTRAMED KAYLAH 01/20/2025 8:50 AM CDT Fracture Special Needs JAZMYNDAYANARA 01/20 @ 0531 CW CALCIUM IONIZED WHOLE BLOOD STAT 01/20/2025 8:30 AM CDT LACTIC ACID BLOOD Routine 01/20/2025 5:4 6 AM CDT CBC W AUTO DIFFERENTIAL Timed 01/20/2025 5:46 AM CDT BLOOD GASES ART + COOX PANEL Routine 01/20/2025 5:[address] HEAD WO CONTRAST STAT 01/20/2025 5 :03 AM CDT Fall from tree, initial encounter CT ANGIO NECK STAT 01/20/2025 5:03 AM CDT Fall from tree, initial encounter URINE DRUG SCREEN IMMUNOASSAY STAT 01/20/2025 1:36 AM CDT BLOOD TYPE VERIFICATION STAT 01/19/2025 11:46 PM CDT CBC W AUTO DIFFERENTIAL Timed 01/19/2025 11:34 PM CDT MAGNESIUM BLOOD STAT 01/19/2025 11:34 PM CDT PHOSPHORUS BLOOD Timed 01/19/2025 11:3 4 PM CDT BASIC METABOLIC PANEL (CALCIUM TOTAL) Timed 01/19/2025 11:34 PM CDT XR PELVIS JUDET VIEWS STAT 01/19/2025 6:21 PM CDT Fall from tree, initial encounter XR PELVIS AP W INLET OUTLET STAT 01/19/2025 6:16 PM CDT Fall from tree, initial encounter XR FEMUR RIGHT 2VW STAT 01/19/2025 6: 15 PM CDT Fall from tree, initial encounter XR KNEE RIGHT 2VW OR LESS STAT 01/19/2025 6:15 PM CDT Fall from tree, initial encounter TYPE + SCREEN PANEL STAT 01/19/2025 5 :08 PM CDT DIFFERENTIAL MANUAL STAT 01/19/2025 5 :08 PM CDT VITAMIN D 25-HYDROXY GANGA 01/19/2025 5:08 PM CDT CBC W AUTO DIFFERENTIAL STAT 01/19/2025 5:08 PM CDT ALCOHOL ETHYL BLOOD STAT 01/19/2025 5 :08 PM CDT BASIC METABOLIC PANEL (CALCIUM TOTAL) STAT 01/19/2025 5:08 PM CDT XR KNEE RIGHT 2VW OR LESS STAT 01/19/2025 5:07 PM CDT Fall from tree, initial encounter CT ANGIO LOWER EXTREMITY RIGHT STAT 01/19/2025 4:51 PM CDT Fall from tree, initial encounter CT FACIAL BONES WO CONTRAST STAT 01/19/2025 4:51 PM CDT Fall from tree, initial encounter CT LUMBAR SPINE WO CONTRAST STAT 01/19/2025 4:51 PM CDT Fall from tree, initial encounter CT THORACIC SPINE WO CONTRAST STAT 01/19/2025 4:51 PM CDT Fall from tree, initial encounter CT CHEST ABDOMEN PELVIS W CONT STAT 01/19/2025 4:51 PM CDT Fall from tree, initial encounter CT CERVICAL SPINE WO CONTRAST STAT 01/19/2025 4:51 PM CDT Fall from tree, initial encounter CT HEAD WO CONTRAST STAT 01/19/2025 4 :51 PM CDT Fall, initial encounter XR FEMUR RIGHT 2VW STAT 01/19/2025 4: 30 PM CDT Fall from tree, initial encounter XR PELVIS 1 OR 2VW STAT 01/19/2025 4: 30 PM CDT Fall from tree, initial encounter XR CHEST 1VW PORTABLE STAT 01/19/2025 4:29 PM CDT Fall from tree, initial encounter from Last 3 Months Results * XR Pelvis Judet Views (02/12/2025 10:02 AM CDT) Only the most recent of2 resultswithin the time period is included. Anatomical Region Laterality Modality Pelvis Radiographic Katya ging 02/12/2025 10:2 3 AM CDT Impressions 02/12/2025 11:22 AM CDT IMPRESSION: Unchanged alignment. The report was drafted by Ceferino Lubin MD (resident care director) 02/12/2025 11:09 AM. The report was drafted by Ceferino Lubin MD (resident care director). > Dictated by Supervisory Aide I, Manohar Chauhan MD have personally reviewed and interpreted this examination/study. > Interpreting Provider: Manohar Chauhan MD on 02/12/2025 11:22 AM Narrative 02/12/2025 11:22 AM CDT PROCEDURE: XR PELVIS JUDET VIEWS, XR PELVIS AP W INLET OUTLET, DATE/TIME OF EXAM: 02/12/2025 10:06 AM, LOCATION [facility] INDICATION: S32.415A: Closed nondisplaced fracture of anterior wall of left acetabulum, initial encounter ([facility]) ADDITIONAL CLINICAL INFORMATION: Ordering Provider Reason For Exam: same (accession [id number]), r sacral fracture and left anterior wall acetabulum (accession [id number]) COMPARISON: Pelvis radiographs from 01/19/2025. CT chest abdomen pelvis from 01/19/2025. FINDINGS: Pelvis AP view inlet outlet radiograph: Redemonstration of minimally displaced fracture of right inferior pubic ramus, unchanged in alignment. Redemonstration of mildly comminuted left puboacetabular junction fracture, unchanged in alignment. Nondisplaced fracture of the right sacral colby. Fractures are better evaluated on CT chest abdomen pelvis from 01/19/2025. Partially visualized right femoral surgical hardware. Pelvis Judet views: Fractures are confirmed. Procedure Note Manohar Chauhan MD - 02/12/2025 PROCEDURE: XR PELVIS JUDET VIEWS, XR PELVIS AP W INLET OUTLET,DATE/TIME OF EXAM: 02/12/2025 10:06 AM, LOCATION [facility] INDICATION: S32.415A: Closed nondisplaced fracture of anterior wall of leftacetabulum, initial encounter ([facility]) ADDITIONAL CLINICAL INFORMATION: Ordering Provider Reason For Exam: same (accession [id number]), r sacral fracture and left anterior wall acetabulum (accession [id number]) COMPARISON: Pelvis radiographs from 01/19/2025. CT chest abdomen pelvis from 01/19/2025. FINDINGS: Pelvis AP view inlet outlet radiograph: Redemonstration of minimally displaced fracture of right inferior pubic ramus, unchanged in alignment. Redemonstration of mildly comminuted left puboacetabular junctionfracture, unchanged in alignment. Nondisplaced fracture of the right sacral colby. Fractures are better evaluated on CT chest abdomen pelvis from 01/19/2025. Partially visualized right femoral surgical hardware. Pelvis Judet views: Fractures are confirmed. IMPRESSION: Unchanged alignment. The report was drafted by Ceferino Lubin MD (resident care director) 02/12/2025 11:09 AM. The report was drafted by Ceferino Lubin MD (resident care director). > Dictated by Supervisory Aide I, Manohar Chauhan MD have personally reviewed and interpreted this examination/study. > Interpreting Provider: Manohar Chauhan MD on 02/12/2025 11:22 AM Yamini Coyne FURNACE CHARGING MACHINE OPERATOR-TRACTOR CRANE ENGINEER DIAGNOSTIC IMAGING O RDERABLES Final Result * XR Pelvis AP W Inlet Outlet (02/12/2025 10:01 AM CDT) Only the most recent of2 resultswithin the time period is included. Anatomical Region Laterality Modality Pelvis Computed Radiogr aphy 02/12/2025 10:2 3 AM CDT Impressions 02/12/2025 11:22 AM CDT IMPRESSION: Unchanged alignment. The report was drafted by Ceferino Lubin MD (resident care director) 02/12/2025 11:09 AM. The report was drafted by Ceferino Lubin MD (resident care director). > Dictated by Supervisory Aide I, Manohar Chauhan MD have personally reviewed and interpreted this examination/study. > Interpreting Provider: Manohar Chauhan MD on 02/12/2025 11:22 AM Narrative 02/12/2025 11:22 AM CDT PROCEDURE: XR PELVIS JUDET VIEWS, XR PELVIS AP W INLET OUTLET, DATE/TIME OF EXAM: 02/12/2025 10:06 AM, LOCATION [facility] INDICATION: S32.415A: Closed nondisplaced fracture of anterior wall of left acetabulum, initial encounter ([facility]) ADDITIONAL CLINICAL INFORMATION: Ordering Provider Reason For Exam: same (accession [id number]), r sacral fracture and left anterior wall acetabulum (accession [id number]) COMPARISON: Pelvis radiographs from 01/19/2025. CT chest abdomen pelvis from 01/19/2025. FINDINGS: Pelvis AP view inlet outlet radiograph: Redemonstration of minimally displaced fracture of right inferior pubic ramus, unchanged in alignment. Redemonstration of mildly comminuted left puboacetabular junction fracture, unchanged in alignment. Nondisplaced fracture of the right sacral colby. Fractures are better evaluated on CT chest abdomen pelvis from 01/19/2025. Partially visualized right femoral surgical hardware. Pelvis Judet views: Fractures are confirmed. Procedure Note Manohar Chauhan MD - 02/12/2025 PROCEDURE: XR PELVIS JUDET VIEWS, XR PELVIS AP W INLET OUTLET,DATE/TIME OF EXAM: 02/12/2025 10:06 AM, LOCATION [facility] INDICATION: S32.415A: Closed nondisplaced fracture of anterior wall of leftacetabulum, initial encounter ([facility]) ADDITIONAL CLINICAL INFORMATION: Ordering Provider Reason For Exam: same (accession [id number]), r sacral fracture and left anterior wall acetabulum (accession [id number]) COMPARISON: Pelvis radiographs from 01/19/2025. CT chest abdomen pelvis from 01/19/2025. FINDINGS: Pelvis AP view inlet outlet radiograph: Redemonstration of minimally displaced fracture of right inferior pubic ramus, unchanged in alignment. Redemonstration of mildly comminuted left puboacetabular junctionfracture, unchanged in alignment. Nondisplaced fracture of the right sacral colby. Fractures are better evaluated on CT chest abdomen pelvis from 01/19/2025. Partially visualized right femoral surgical hardware. Pelvis Judet views: Fractures are confirmed. IMPRESSION: Unchanged alignment. The report was drafted by Ceferino Lubin MD (resident care director) 02/12/2025 11:09 AM. The report was drafted by Ceferino Lubin MD (resident care director). > Dictated by Supervisory Aide I, Manohar Chauhan MD have personally reviewed and interpreted this examination/study. > Interpreting Provider: Manohar Chauhan MD on 02/12/2025 11:22 AM Yamini Coyne FURNACE CHARGING MACHINE OPERATOR-TRACTOR CRANE ENGINEER DIAGNOSTIC IMAGING O RDERABLES Final Result * XR Femur Right 2Vw (02/12/2025 9:15 AM CDT) Only the most recent of4 resultswithin the time period is included. Anatomical Region Laterality Modality Lower Extremity Radiographic Katya ging 02/12/2025 9:36 AM CDT Impressions 02/12/2025 11:08 AM CDT IMPRESSION: Unchanged osseous alignment with intact hardware. The report was drafted by Ceferino Lubin MD (resident care director) 02/12/2025 9:36 AM. > Dictated by Supervisory Aide I, Manohar Chauhan MD have personally reviewed and interpreted this examination/study. > Interpreting Provider: Maonhar Chauhan MD on 02/12/2025 11:08 AM Narrative 02/12/2025 11:08 AM CDT PROCEDURE: XR FEMUR RIGHT 2VW, DATE/TIME OF EXAM: 02/12/2025 9:15 AM, LOCATION [facility] INDICATION: S72.301A: Closed fracture of shaft of right femur, unspecified fracture morphology, initial encounter ([facility]) ADDITIONAL CLINICAL INFORMATION: Ordering Provider Reason For Exam: post op COMPARISON: Right femur radiograph from 01/20/2025. FINDINGS: Redemonstration of right femoral fracture fixation with intramedullary nail with one proximal and 2 distal screws. The hardware is intact and the alignment is unchanged. There has been interval healing with mild callus formation. Improved soft tissue swelling and emphysema. Procedure Note Manohar Chauhan MD - 02/12/2025 PROCEDURE: XR FEMUR RIGHT 2VW, DATE/TIME OF EXAM: 02/12/2025 9:15 AM, LOCATION [facility] INDICATION: S72.301A: Closed fracture of shaft of right femur, unspecified fracture morphology, initial encounter ([facility]) ADDITIONAL CLINICAL INFORMATION: Ordering Provider Reason For Exam: post op COMPARISON: Right femur radiograph from 01/20/2025. FINDINGS: Redemonstration of right femoral fracture fixation with intramedullarynail with one proximal and 2 distal screws. The hardware is intact and the alignment is unchanged. There has been interval healing with mild callus formation. Improved soft tissue swelling and emphysema. IMPRESSION: Unchanged osseous alignment with intact hardware. The report was drafted by Ceferino Lubin MD (resident care director) 02/12/2025 9:36 AM. > Dictated by Supervisory Aide I, Manohar Chauhan MD have personally reviewed and interpreted this examination/study. > Interpreting Provider: Manohar Chauhan MD on 02/12/2025 11:08 AM Brooke Fairchild MD DIAGNOSTIC IMAGING ORDERABL ES Final Result * (ABNORMAL) CBC W AUTO DIFFERENTIAL (01/24/2025 4:09 AM T) Only the most recent of7 resultswithin the time period is included. WBC 6.5 4.0 - 10.7 x10E9/L 01/24/2025 4:47 AM [facility] RBC Count 2.91(L) 4.30 - 5.80 x10E12/L 01/24/2025 4:47 AM [facility] Hemoglobin 8.8(L) 13.3 - 17.5 g/dL 01/24/2025 4:47 AM [facility] Hematocrit 24.0(L) 38.7 - 51.1 % 01/24/2025 4:47 AM [facility] MCV 82.5 80.0 - 98.0 fL 01/24/2025 4:47 AM [facility] MCH 30.2 26.7 - 33.6 pg 01/24/2025 4:47 AM [facility] MCHC 36.7(H) 31.7 - 36.3 g/dL 01/24/2025 4:47 AM [facility] RDW-CV 11.9 11.3 - 14.8 % 01/24/2025 4:47 AM [facility] Platelet Count 121(L) 150 - 420 x10E9/L 01/24/2025 4:47 AM [facility] MPV 9.6 7.8 - 11.4 fL 01/24/2025 4:47 AM [facility] Neutrophil % 56.8 41.0 - 74.0 % 01/24/2025 4:47 AM [facility] Lymphocyte % 23.4 17.0 - 47.0 % 01/24/2025 4:47 AM [facility] Monocyte % 12.1(H) 3.0 - 11.0 % 01/24/2025 4:47 AM [facility] Eosinophil % 4.6 0.0 - 7.0 % 01/24/2025 4:47 AM [facility] Basophil % 0.8 0.0 - 1.6 % 01/24/2025 4:47 AM [facility] Immature Granulocytes % 2.3(H) 0.0 - 1.0 % 01/24/2025 4:47 AM [facility] Neutrophil Absolute 3.72 1.60 - 7.50 x10E9/L 01/24/2025 4:47 AM [facility] Lymphocyte Absolute 1.53 1.00 - 4.40 x10E9/L 01/24/2025 4:47 AM [facility] Monocyte Absolute 0.79 0.15 - 1.00 x10E9/L 01/24/2025 4:47 AM [facility] Eosinophil Absolute 0.30 0.00 - 0.60 x10E9/L 01/24/2025 4:47 AM [facility] Basophil Absolute 0.05 0.00 - 0.13 x10E9/L 01/24/2025 4:47 AM [facility] Blood BLOOD SPECIMEN / Unknown Lab Venipuncture / Unknown 01/24/2025 4:09 AM CDT 01/24/2025 4:38 AM CDT us Jorge Anne FURNACE CHARGING MACHINE OPERATOR-TRACTOR CRANE ENGINEER LAB - HEMATOLOGY ORDERA BLES Final Result [facility] [address] [place] [address], [facility] [phone] * (ABNORMAL) BASIC METABOLIC PANEL (CALCIUM TOTAL) (01/24/2025 4:09 AM CDT) Only the most recent of6 resultswithin the time period is included. BUN 9 7 - 26 mg/dL 01/24/2025 5:16 AM [facility] Creatinine 0.69(L) 0.71 - 1.16 mg/dL 01/24/2025 5:16 AM [facility] Sodium 137 136 - 145 mmol/L 01/24/2025 5:16 AM [facility] Potassium 3.6 3.5 - 4.5 mmol/L 01/24/2025 5:16 AM [facility] Chloride 110(H) 98 - 107 mmol/L 01/24/2025 5:16 AM [facility] CO2 19(L) 22 - 29 mmol/L 01/24/2025 5:16 AM [facility] Glucose 106(H) 70 - 99 mg/dL 01/24/2025 5:16 AM [facility] Calcium 8.6 8.4 - 10.2 mg/dL 01/24/2025 5:16 AM [facility] Anion Gap 8 6 - 16 01/24/2025 5:16 AM [facility] BUN/Creatinine Ratio 13 7 - 23 01/24/2025 5:16 AM [facility] Osmolality Calculated 283 275 - 295 mOsm/kg 01/24/2025 5:16 AM [facility] eGFR by CKD-EPI >90 >=90 mL/min/1.7 3 m2 01/24/2025 5:16 AM [facility] Comment:Estimated Glomerular Filtration Rate (eGFR) calculated using the CKD-EPI Creatinine Equation (2020), per the National Kidney Foundation and [place] [employer] Neph[employer] recommendations. Blood BLOOD SPECIMEN / Unknown Lab Venipuncture / Unknown 01/24/2025 4:09 AM CDT 01/24/2025 4:38 AM [facility] us Jorge Anne FURNACE CHARGING MACHINE OPERATOR-TRACTOR CRANE ENGINEER LAB - CHEMISTRY ORDERAB LES Final Result [facility] [address] [place] [address], [facility] [phone] * PHOSPHORUS BLOOD (01/24/2025 4:09 AM CDT) Only the most recent of4 resultswithin the time period is included. Phosphorus 3.6 2.8 - 5.1 mg/dL 01/24/2025 5:16 AM CDT [facility] Blood BLOOD SPECIMEN / Unknown Lab Venipuncture / Unknown 01/24/2025 4:09 AM CDT 01/24/2025 4:38 AM CDT Jorge Song Dayana FURNACE CHARGING MACHINE [facility] LAB - CHEMISTRY ORDERAB LES Final Result Performing Organization Address City/[facility]/ZIP Co de Phone Number [address] [address], [facility] [phone] * MAGNESIUM BLOOD (01/24/2025 4:09 AM CDT) Only the most recent of4 resultswithin the time period is included. Pathologist [facility] Magnesium 1.8 1.6 - 2.6 mg/dL 01/24/2025 5:16 AM CDT [facility] Blood BLOOD SPECIMEN / Unknown Lab Venipuncture / Unknown 01/24/2025 4:09 AM CDT 01/24/2025 4:38 AM CDT Jorge Song Dayana FURNACE CHARGING MACHINE OPERATOR-[facility] - CHEMISTRY ORDERAB LES Final Result Performing Organization Address City/[facility]/ZIP Co de Phone Number [address] [address], [facility] [phone] * EKG 12-Lead (01/21/2025 8:54 PM CDT) Ventricular Rate 95 BPM [facility] M[facility] Atrial Rate 95 BPM [facility] P-R Interval 128 ms [facility] QRS Duration ms 98 ms [facility] Q-T Interval ms 324 ms [facility] QTC Calculation (Bezet) 407 ms [facility] MUSE Calculated P Forman 8 degrees [facility]USE Calculated R Forman 74 degrees [facility]USE Calculated T Forman 16 degrees [facility] MUSE Interpretation EKG SINUS RHYTHM WITH MARKED SINUS ARRYTHMIA OTHERWISE NORMAL ECG NO PREVIOUS ECGS AVAILABLE Confirmed by LIDIA GAVIRIA, LONG ([id number]) on 02/03/2025 5:07:01 AM [facility] MUSE 01/21/2025 8:54 PM CDT 02/03/2025 5:07 AM CDT us Sameera Zurita MD ECG ORDERABLES Edited Result - Final [facility] MUSE * CT Head Wo Contrast (01/21/2025 4:48 PM CDT) Only the most recent of3 resultswithin the time period is included. Anatomical Region Laterality Modality Head Computed Tomogra phy 01/21/2025 4:53 PM CDT Impressions 01/21/2025 5:00 PM CDT IMPRESSION: 1.Continued evolution of the small volume intraparenchymal hemorrhage left schaefer radiata measuring 7 x 5 mm with mild mass effect on the left lateral ventricle, not significantly changed. 2.Additional small intraparenchymal hemorrhage in the left medial temporal lobe, not as well seen on the current study, exam is severely degraded. Minimal hyperdensity and thickening of the falx and tentorial leaflets could represent small volume subdural hemorrhage however exam is degraded from motion and significant streak artifact. 3. Some hypoattenuation is suggested in the anterior aspect of the left temporal lobe may be related underlying streak artifact however if there is concern for ischemia in this region, consider MRI. > Interpreting Provider: Tanner Rosen MD on 01/21/2025 5:00 PM Narrative 01/21/2025 5:00 PM CDT PROCEDURE: CT HEAD WO CONTRAST DATE/TIME OF EXAM: 01/21/2025 4:48 PM CLINICAL INFORMATION: None relevant/not provided if blank. Indication: S06.331A: Intraparenchymal hematoma of brain with loss of consciousness of 30 minutes or less, unspecified laterality, initial encounter ([facility]) Additional History: FINDINGS: Small focus of intraparenchymal hemorrhage is again noted in the left schaefer radiata measuring approximately 7 mm x 5 mm please see image 24 series 2 is not significantly changed in size from the prior study causing minimal mass effect on the left lateral ventricle. Foci of hyperattenuation are seen around this region likely related to expected evolution of intraparenchymal hemorrhage. Also there is a punctate focus of intraparenchymal hemorrhage seen in the left temporal lobe appears more faint on the current study. Very minimal subdural hemorrhage is noted along the tentorial leaf which are significantly obscured by streak artifact and not as well seen. Some calcifications are seen along the interhemispheric falx. The ventricles are of normal size, shape, and morphology. The basilar cisterns are patent. No mass effect or midline shift is seen. Some hypoattenuation noted in the left middle cranial fossa is seen which could be related to underlying artifact however, MRI may be helpful for better evaluation given significant motion artifact on the current study and poor image quality. The orbits appear normal. The paranasal sinuses are clear. The mastoid air cells are clear. No soft tissue abnormality is identified. Procedure Note Tanner Rosen MD - 01/21/2025 PROCEDURE: CT HEAD WO CONTRAST DATE/TIME OF EXAM: 01/21/2025 4:48 PM CLINICAL INFORMATION: None relevant/not provided if blank. Indication: S06.331A: Intraparenchymal hematoma of brain with loss of consciousness of 30 minutes or less, unspecified laterality, initial encounter ([facility]) Additional History: FINDINGS: Small focus of intraparenchymal hemorrhage is again noted in the left schaefer radiata measuring approximately 7 mm x 5 mm please see image 24 series 2 is not significantly changed in size from the prior studycausing minimal mass effect on the left lateral ventricle. Foci of hyperattenuation are seen around this region likely related to expected evolution of intraparenchymal hemorrhage. Also there is apunctate focus of intraparenchymal hemorrhage seen in the left temporal lobeappears more faint on the current study. Very minimal subdural hemorrhage isnoted along the tentorial leaf which are significantly obscured by streak artifact and not as well seen. Some calcifications are seen along the interhemispheric falx. The ventricles are of normal size, shape, and morphology. The basilar cisterns are patent. No mass effect or midline shift is seen. Some hypoattenuation noted in the left middle cranial fossa is seen whichcould be related to underlying artifact however, MRI may be helpful for better evaluation given significant motion artifact on the current study andpoor image quality. The orbits appear normal. The paranasal sinuses areclear. The mastoid air cells are clear. No soft tissue abnormality isidentified. IMPRESSION: 1.Continued evolution of the small volume intraparenchymal hemorrhageleft schaefer radiata measuring 7 x 5 mm with mild mass effect on the left lateral ventricle, not significantly changed. 2.Additional small intraparenchymal hemorrhage in the left medialtemporal lobe, not as well seen on the current study, exam is severely degraded. Minimal hyperdensity and thickening of the falx and tentorial leaflets could represent small volume subdural hemorrhage however exam isdegraded from motion and significant streak artifact. 3. Some hypoattenuation is suggested in the anterior aspect of the left temporal lobe may be related underlying streak artifact however if thereis concern for ischemia in this region, consider MRI. > Interpreting Provider: Tanner Rosen MD on 01/21/2025 5:00 PM Alejandra Lewis FURNACE CHARGING MACHINE OPERATOR-TRACTOR CRANE ENGINEER CT ORDERABLES Final R esult * XR Cervical Spine 2 or 3Vw (01/21/2025 4:33 PM CDT) Anatomical Region Laterality Modality Spine Digital Radiogra phy 01/22/2025 3:45 AM CDT Impressions 01/22/2025 3:46 AM CDT IMPRESSION: Known C7 fracture is not well seen. The vertebral body heights are otherwise normal. Intervertebral disc spaces are normal. There is no prevertebral soft tissue swelling. > Interpreting Provider: Romulo River MD on 01/22/2025 3:46 AM Narrative 01/22/2025 3:46 AM CDT PROCEDURE: XR CERVICAL SPINE 2 OR 3VW DATE/TIME OF EXAM: 01/21/2025 4:33 PM CLINICAL INFORMATION: None relevant/not provided if blank. Indication: W14.XXXA: Fall from tree, initial encounter Additional History: COMPARISON: 01/20/2025 Procedure Note Romulo River MD - 01/22/2025 PROCEDURE: XR CERVICAL SPINE 2 OR 3VW DATE/TIME OF EXAM: 01/21/2025 4:33 PM CLINICAL INFORMATION: None relevant/not provided if blank. Indication: W14.XXXA: Fall from tree, initial encounter Additional History: COMPARISON: 01/20/2025 IMPRESSION: Known C7 fracture is not well seen. The vertebral body heights are otherwise normal. Intervertebral disc spaces are normal. There is no prevertebral soft tissue swelling. > Interpreting Provider: Romulo River MD on 01/22/2025 3:46 AM us Sameera Zurita MD DIAGNOSTIC IMAGING ORDERABLES Final Result * XR Chest 1Vw Portable (01/21/2025 5:12 AM CDT) Only the most recent of2 resultswithin the time period is included. Anatomical Region Laterality Modality Chest Digital Radiogra phy 01/22/2025 1:57 AM CDT Impressions 01/22/2025 1:57 AM CDT IMPRESSION: No acute cardiopulmonary abnormalities. > Interpreting Provider: Romulo River MD on 01/22/2025 1:57 AM Narrative 01/22/2025 1:57 AM CDT PROCEDURE: XR CHEST 1VW PORTABLE DATE/TIME OF EXAM: 01/21/2025 5:12 AM CLINICAL INFORMATION: None relevant/not provided if blank. Indication: W14.XXXA: Fall from tree, initial encounter Additional History: COMPARISON: None. FINDINGS: Single frontal view of the chest demonstrates a normal sized heart and pulmonary vasculature. No focal consolidation, pleural effusion or pneumothorax. No acute osseous abnormalities. Procedure Note Romulo River MD - 01/22/2025 PROCEDURE: XR CHEST 1VW PORTABLE DATE/TIME OF EXAM: 01/21/2025 5:12 AM CLINICAL INFORMATION: None relevant/not provided if blank. Indication: W14.XXXA: Fall from tree, initial encounter Additional History: COMPARISON: None. FINDINGS: Single frontal view of the chest demonstrates a normal sized heart and pulmonary vasculature. No focal consolidation, pleural effusion or pneumothorax. No acute osseous abnormalities. IMPRESSION: No acute cardiopulmonary abnormalities. > Interpreting Provider: Romulo River MD on 01/22/2025 1:57 AM us Sameera Zurita MD DIAGNOSTIC IMAGING ORDERABLES Final Result * (ABNORMAL) CALCIUM IONIZED WHOLE BLOOD (01/21/2025 3:42 AM CDT) Only the most recent of2 resultswithin the time period is included. Calcium Ionized 1.14 mmol/L 01/21/2025 3:56 AM CDT [facility] pH 7.43 7.35 - 7.45 pH 01/21/2025 3:56 AM CDT [facility] Ionized Calcium pH Adjusted 1.15(L) 1.19 - 1.34 mmol/L 01/21/2025 3:56 AM CDT [facility] Blood BLOOD SPECIMEN / Unknown Lab Venipuncture / Unknown 01/21/2025 3:42 AM CDT 01/21/2025 3:50 AM CDT Norberto Arcos MD LAB - CHEMISTRY ORDERA BLES Final Result Performing Organization Address [facility] Co de Phone Number [facility] [address] [place] [address], [facility] [phone] * [place] [facility] (01/20/2025 11:15 AM CDT) Narrative [facility] - 01/20/2025 11:16 AM CDT Fluoroscopy was used for this exam in the OR. Please see the Operative report. Brooke Fairchild MD FLUOROSCOPY ORDERABLES Marry l Result Performing Organization Address City/[facility] Co de Phone Number [facility] * ETT LINE PERFORMABLE (01/20/2025 9:58 AM CDT) Narrative Doyle Johnson MD - 01/20/2025 9:58 AM CDT Doyle Johnson MD 01/20/2025 9:59 AM Endotracheal Tube Placement: Patient Location: OR. Procedure: intubation ([id number]) Procedure Section: Sedation: under general anesthesia. Indications for Airway Management: anesthesia Induction: standard IV Patient Position: sniffing and supine Mask Ventilation: easy. Blade Type: Video Blade Size: 3 Laryngoscopy View: grade 1 (full cords) Intubation Adjuncts: stylet and cricoid pressure Tube: endotracheal tube Placement: oral Tube type: cuff - inflated Tube Size (MM): 8 Depth of Insertion (CM): 24 Measured From: lips Cuff Inflated With: air Number of Attempts: 1. Placement Verified By: direct visualization, bilateral breath sounds, chest auscultation and CO2 monitor CXR Findings: ETT in proper place. Tube secured with: adhesive tape. Dentition unchanged? Yes Difficult Airway? No. Staff Section Anesthesia Provider: Doyle Johnson MD, Performed the procedure Provider #1: Mily Hood DO. Additional Comments: C7 Facet Fx in C collar, opted for Video with MAC3 blade due to limited inventory. us Mily Hood DO GENERAL ANESTHESIA ORDERAB LES Final Result * LACTIC ACID BLOOD (01/20/2025 5:46 AM CDT) [facility] Lactic Acid-Stat 1.1 <=2.0 mmol/L 01/20/2025 6:24 AM CDT [facility] Blood BLOOD SPECIMEN / Unknown Venipuncture / Unknown 01/20/2025 5:46 AM CDT 01/20/2025 5:50 AM CDT us Surinder Edwards MD LAB - CHEMISTRY ORDERABLES Final Result [address] [address], [facility] [phone] * (ABNORMAL) BLOOD GASES ART + COOX PANEL (01/20/2025 5:13 AM CDT) [facility] pH Arterial 7.37 7.35 - 7.45 pH 01/20/2025 5:28 AM CDT [facility] pO2 Arterial 53(L) 80 - 100 mmHg 01/20/2025 5:28 AM T [facility] pCO2 Arterial 39 35 - 45 mmHg 5:28 AM T [facility] HCO3 Arterial 22.5 20.0 - 30.0 mmol/L 01/20/2025 5:28 AM T [facility] BE Arterial -2.5(L) -2.0 - 2.0 mmol/L 01/20/2025 5:28 AM [facility] Oxyhemoglobin Arterial 85.4 % 01/20/2025 5:28 AM [facility] Dexoyhemoglobin (HHB) % 11.7 % 01/20/2025 5:28 AM [facility] Methemoglobin <0.8 0.0 - 2.0 % 01/20/2025 5:28 AM [facility] Carboxyhemoglobin 2.5(H) 0.0 - 2.0 % 2024 5:28 AM [facility] O2 Content Arterial 16.3 Interpret within clinical context ml/dL 01/20/2025 5:28 AM [facility] Hemoglobin by COOX 13.6 12.0 - 17.6 g/dL 01/20/2025 5:28 AM [facility] O2 Saturation Arterial 88(L) 90 - 100 % 01/20/2025 5:28 AM [facility] FI O2 Arterial 21.0 % 01/20/2025 5:28 AM [facility] Blood, arterial ARTERIAL BLOOD SPECIMEN / Unknown Arterial Puncture / Unknown 01/20/2025 5:13 AM CDT 01/20/2025 5:19 AM [facility] - 01/20/2025 5:28 AM [facility] Carboxyhemoglobin Normal Concentration: Non-smokers: 0-2%; Smokers: 0-9%; Toxic: >20% us Brooke Fairchild MD LAB - BLOOD GASES ORDERABLE S Final Result [facility] [address] [place] [address], [facility] [phone] * CT Angio Neck (01/20/2025 5:03 AM CDT) Anatomical Region Laterality Modality Head Computed Tomogra phy 01/20/2025 6:05 AM CDT Impressions 01/20/2025 10:35 AM CDT IMPRESSION: 1.No evidence of large arterial injury identified in the neck. 2.Redemonstration of a nondisplaced fracture of the left C7 articular pillar along the superior articulating facet. The report was drafted by Ceferino Lubin MD (resident care director) 01/20/2025 6:05 AM. > Dictated by Supervisory Aide I, Annelise Ortiz MD have personally reviewed and interpreted this examination/study. > Interpreting Provider: Annelise Ortiz MD on 01/20/2025 10:35 AM Narrative 01/20/2025 10:35 AM CDT PROCEDURE: CT ANGIO NECK, DATE/TIME OF EXAM: 01/20/2025 5:03 AM, LOCATION [facility] INDICATION: W14.XXXA: Fall from tree, initial encounter ADDITIONAL CLINICAL INFORMATION: Ordering Provider Reason For Exam: r/o vertebral artery injury CONTRAST: IOPAMIDOL 76 % IV SOLN:75 mL TECHNIQUE: CT angiography of the neck was obtained after the uneventful administration of 75 mL Isovue 370 intravenous contrast. Three dimensional postprocessing was performed by the technologist and sent to the workstation for review. Stenosis measurements are based on NASCET criteria. CT dose reduction technique was used, including Automated Exposure Control. COMPARISON: CT cervical spine from 01/19/2025 FINDINGS: Non-angiographic findings: No soft tissue abnormalities are identified in the neck. Redemonstration of a nondisplaced fracture of the left C7 articular pillar along the superior articulating facet. Angiographic findings: The visible aortic arch appears normal. The configuration of the brachiocephalic vessels is typical. The innominate artery and both subclavian arteries appear normal. The right common and internal carotid arteries as well as the right carotid bifurcation appear normal. The left common and internal carotid arteries as well as the left carotid bifurcation appear normal. The cervical vertebral arteries appear normal. No evidence of large arterial injury is identified. Procedure Note Annelise Ortiz MD - 01/20/2025 PROCEDURE: CT ANGIO NECK, DATE/TIME OF EXAM: 01/20/2025 5:03 AM, LOCATION [facility] INDICATION: W14.XXXA: Fall from tree, initial encounter ADDITIONAL CLINICAL INFORMATION: Ordering Provider Reason For Exam: r/o vertebral artery injury CONTRAST: IOPAMIDOL 76 % IV SOLN:75 mL TECHNIQUE: CT angiography of the neck was obtained after the uneventful administration of 75 mL Isovue 370 intravenous contrast. Threedimensional postprocessing was performed by the technologist and sent to the workstation for review. Stenosis measurements are based on NASCETcriteria. CT dose reduction technique was used, including Automated Exposure Control. COMPARISON: CT cervical spine from 01/19/2025 FINDINGS: Non-angiographic findings: No soft tissue abnormalities are identified in the neck. Redemonstrationof a nondisplaced fracture of the left C7 articular pillar along thesuperior articulating facet. Angiographic findings: The visible aortic arch appears normal. The configuration of the brachiocephalic vessels is typical. The innominate artery and both subclavian arteries appear normal. The right common and internal carotid arteries as well as the right carotid bifurcation appear normal. Theleft common and internal carotid arteries as well as the left carotid bifurcation appear normal. The cervical vertebral arteries appearnormal. No evidence of large arterial injury is identified. IMPRESSION: 1.No evidence of large arterial injury identified in the neck. 2.Redemonstration of a nondisplaced fracture of the left C7 articular pillar along the superior articulating facet. The report was drafted by Ceferino Lubin MD (resident care director) 01/20/2025 6:05 AM. > Dictated by Supervisory Aide I, Annelise Ortiz MD have personally reviewed and interpreted this examination/study. > Interpreting Provider: Annelise Ortiz MD on 01/20/2025 10:35 AM Norberto Arcos MD CT ORDERABLES Final Result * (ABNORMAL) URINE DRUG SCREEN IMMUNOASSAY (01/20/2025 1:36 AM CDT) [facility] Amphetamines Screen Urine Negative Negative : < 1000 ng/mL 01/20/2025 2:32 AM [facility] Barbiturates Screen Urine Negative Negative : < 200 ng/mL 01/20/2025 2:32 AM [facility] Benzodiazepine Screen Urine Positive(A) Negative : < 200 ng/mL 01/20/2025 2:32 AM [facility] Comment: Positive urine benzodiazepine screening results should be confirmed by another generally accepted non-immunological method such as gas chromatography or mass spectrometry. Opiates Urine Negative Negative : < 300 ng/mL 01/20/2025 2:32 AM [facility] Cocaine Metabolites Urine Negative Negative : < 300 ng/mL 01/20/2025 2:32 AM CDT [facility] Phencyclidine Screen Urine Negative Negative : < 25 ng/ml 01/20/2025 2:32 AM CDT [facility] Cannabinoids Screen Urine Positive(A) Negative : <50 ng/mL 01/20/2025 2:32 AM CDT [facility] Comment:Positive urine canna binoids (THC) screening results should be confirmed by another generally accepted non-immunological method such as gas chromatography or mass spectrometry. Methadone Screen Urine Negative Negative : < 300 ng/mL 01/20/2025 2:32 AM CDT [facility] Fentanyl Screen Urine Negative Negative : <1.5 ng/mL 01/20/2025 2:32 AM T [facility] Urine URINE / Unknown Collection / Unknown 01/20/2025 1:36 AM CDT 01/20/2025 2:04 AM CDT Narrative [facility] - 01/20/2025 2:32 AM CDT The Urine Toxicology Screening Panel does not screen for Propoxyphene, Meprobamate, Carisoprodol, Trazodone, [id number] medications and/or volatiles (Acetone, Isopropanol, Methanol or Ethylene Glycol). Ethanol, Salicylate, Acetaminophen, Tricyclic Antidepressants and several therapeutic drugs may be individually assayed in serum or plasma specimen. Toxicology testing by the [facility] is an aid to medical diagnosis and treatment of patients. No documented chain of custody was maintained. Results are intended to be used for clinical purposes only. Sameera Zurita MD LAB - URINE CHEMISTRY ORDERAB LES Final Result [facility] [address] [place] [address], [facility] [phone] * BLOOD TYPE VERIFICATION (01/19/2025 11:46 PM CDT) ABO Rh O NEG 01/20/2025 12:26 AM CDT [facility] Blood Bank BLOOD SPECIMEN / Unknown Venipuncture / Unknown 01/19/2025 11:46 PM CDT 01/19/2025 11:51 PM CDT us Sameera Zurita MD LAB - BLOOD BANK ORDERABLES F inal Result [facility] [address] [place] [address], [facility] [phone] * XR Knee Right 2Vw or Less (01/19/2025 6:15 PM CDT) Only the most recent of2 resultswithin the time period is included. Anatomical Region Laterality Modality Lower Extremity Digital Radiogra phy 01/19/2025 6:41 PM CDT Narrative 01/20/2025 6:38 AM CDT PROCEDURE: XR KNEE RIGHT 2VW OR LESS, DATE/TIME OF EXAM: 01/19/2025 6:15 PM, LOCATION [facility] INDICATION: W14.XXXA: Fall from tree, initial encounter ADDITIONAL CLINICAL INFORMATION: Ordering Provider Reason For Exam: post traction Technologist Note: Additional: COMPARISON: None. FINDINGS/IMPRESSION: Placement of transtibial traction pinning. No acute fracture. The knee joint space is preserved. No joint effusion is seen. Bone density and texture are normal. Trace soft tissue gas, likely iatrogenic. Report dictated by Mohamud Le MD, (vice president of nursing). > Dictated by Supervisory Aide I, Augustin Saini MD have personally reviewed and interpreted this examination/study. > Interpreting Provider: Augustin Saini MD on 01/20/2025 6:38 AM Procedure Note Augustin Saini MD - 01/20/2025 PROCEDURE: XR KNEE RIGHT 2VW OR LESS, DATE/TIME OF EXAM: 56:15 PM, LOCATION [facility] INDICATION: W14.XXXA: Fall from tree, initial encounter ADDITIONAL CLINICAL INFORMATION: Ordering Provider Reason For Exam: post traction Technologist Note: Additional: COMPARISON: None. FINDINGS/IMPRESSION: Placement of transtibial traction pinning. No acute fracture. The knee joint space is preserved. No joint effusion is seen. Bone density and texture are normal. Trace soft tissue gas, likely iatrogenic. Report dictated by Mohamud Le MD, (vice president of nursing). > Dictated by Supervisory Aide I, Augustin Saini MD have personally reviewed and interpreted this examination/study. > Interpreting Provider: Augustin Saini MD on 01/20/2025 6:38 AM Brooke Fairchild MD DIAGNOSTIC IMAGING ORDERABL ES Final Result * VITAMIN D 25-HYDROXY (01/19/2025 5:08 PM CDT) Vitamin D, 25 Hydroxy 49.4 30.0 - 80.0 ng/mL 01/19/2025 6:01 PM CDT [facility] Comment: The recommendations for 25-Hydroxy Vitamin D clinical decision points are as follows: Deficient: <20.0 ng/mL Insufficient: 20.0 - 29.9 ng/mL Sufficient: 30.0 - 100.0 ng/mL Potential Toxicity: >100 ng/mL Reference: The Endocrine Society Clinical Practice Guidelines. 2011 If the 25-Hydroxy Vitamin D results are inconsitent with clinical evidence, it is recommended that follow-up testing using a method such as LC/MS/MS be performed to confirm the result. Blood BLOOD SPECIMEN / Unknown Venipuncture / Unknown 01/19/2025 5:08 PM CDT 01/19/2025 5:14 PM CDT Result [facility] Manuela Nguyen PA-C LAB - CHEMISTRY RAY PANIAGUA Final Result [address] [address], [facility] [phone] * TYPE + SCREEN PANEL (01/19/2025 5:08 PM CDT) Antibody Screen NEG 5:55 PM CDT [facility] ABO Rh O NEG 01/19/2025 5:55 PM CDT [facility] Blood Bank BLOOD SPECIMEN / Unknown Venipuncture / Unknown 01/19/2025 5:08 PM CDT 01/19/2025 5:13 PM CDT Result [facility] Sameera Zurita MD LAB - BLOOD BANK ORDERABLES F inal Result [facility] [address] [place] [address], [facility] [phone] * (ABNORMAL) DIFFERENTIAL MANUAL (01/19/2025 5:08 PM CDT) Neutrophil % 84(H) 41 - 74 % 01/19/2025 5:59 PM CDT [facility] Lymphocyte % 6(L) 17 - 47 % 01/19/2025 5:59 PM CDT [facility] Monocyte % 9 3 - 11 % 01/19/2025 5:59 PM CDT [facility] Metamyelocyte % 1(H) 0% % 5:59 PM CDT [facility] Neutrophil Absolute 23.02(H) 1.60 - 7.50 x10E9/L 01/19/2025 5:59 PM CDT [facility] Lymphocyte Absolute 1.64 1.00 - 4.40 x10E9/L 01/19/2025 5:59 PM CDT [facility] Monocyte Absolute 2.47(H) 0.15 - 1.00 x10E9/L 01/19/2025 5:59 PM CDT [facility] RBC Morphology REVIEWED 01/19/2025 5:59 PM CDT [facility] Abe Cells MODERATE(A) (none) 01/19/2025 5:59 PM CDT [facility] Microcytosis MODERATE(A) (none) 01/19/2025 5:59 PM CDT [facility] Blood BLOOD SPECIMEN / Unknown Venipuncture / Unknown 01/19/2025 5:08 PM CDT 01/19/2025 5:14 PM CDT Sameera Zurita MD LAB - HEMATOLOGY ORDERABLES F inal Result [facility] [address] [place] [address], [facility] [phone] * ALCOHOL ETHYL BLOOD (01/19/2025 5:08 PM CDT) Ethanol (mg/dL) <10 <10 mg/dL 5:43 PM CDT [facility] Ethanol Calculated (g/dL) <0.010 <=0.010 g/dL 01/19/2025 5:43 PM CDT [facility] Blood BLOOD SPECIMEN / Unknown Venipuncture / Unknown 01/19/2025 5:08 PM CDT 01/19/2025 5:14 PM CDT Narrative [facility] - 01/19/2025 5:43 PM CDT Ethanol Interp <10: None Detected. Depression of PRICE ANALYST: >100 mg/dl Potentially Critical: >250 mg/dl Potentially Fatal >400 mg/dl Ethanol in the patient's blood will contribute to the osmolar gap. Ethanol's contribution to the osmolar gap can be estimated by dividing the concentration of ethanol in mg/dL by 4.6. This test is for clinical use only and does not equal a BEAN for legal purposes. Sameera Zurita MD LAB - CHEMISTRY ORDERABLES nal Result [facility] [address] [place] [address], [facility] [phone] * CT CHEST ABDOMEN PELVIS W CONT - Abdomen-pelvis trauma, blunt or penetrating (01/19/2025 4:51 PM CDT) Anatomical Region Laterality Modality Chest, Abdomen, Pelvis Computed Tomography 01/19/2025 5:08 PM CDT Impressions 01/19/2025 8:18 PM CDT Impression 1.Slight cortical irregularities of the lateral left sixth through ninth ribs (series 9 images 22-26) may represent incomplete rib fractures, otherwise no acute visceral, vascular or osseous injury is identified in the chest. There is a minimally displaced fracture at the left articular pillar of C7, please refer to separately dictated cervical spine CT for further characterization. 2.Complex splenic lacerations involving the hilum with small volume surrounding perisplenic hematoma. No active arterial contrast extravasation is identified and the perisplenic collection is not qualitatively enlarge on delayed acquisition. Compatible with grade 3 splenic injury. 3.Multiple pelvic fractures including a mildly displaced fracture at the anterior left acetabulum and mildly displaced fractures of the right inferior pubic ramus and also the right sacral ala. Lipohemarthrosis of the right hip joint is present, with a subtle nondisplaced fracture of the right acetabulum. Preliminary findings were discussed in detail with the patient's care provider, Dr Rasmussen by Dr. Chetan Guadarrama via telephone at 01/19/2025 5:36 PM with readback comprehension and verification. > Dictated by Chetan Guadarrama D.O. - Diagnostic Supervisory Aide. > Dictated by Supervisory Aide I, Romulo River MD have personally reviewed and interpreted this examination/study. > Interpreting Provider: Romulo River MD on 01/19/2025 8:18 PM Narrative 01/19/2025 8:18 PM CDT PROCEDURE: CT CHEST ABDOMEN PELVIS W CONT, DATE/TIME OF EXAM: 01/19/2025 4:54 PM, LOCATION [facility] INDICATION: W19.XXXA: Fall, initial encounter Ordering Provider Reason For Exam: Technologist Note: Additional: None. CONTRAST: IOPAMIDOL 76 % IV SOLN:100 mL EXAMINATION: Computed tomography (CT) of the chest, abdomen, and pelvis with contrast TECHNIQUE: CT of the chest, abdomen, and pelvis was performed after the uneventful administration of 100 mL of Isovue 370 intravenous contrast according to standard protocol. COMPARISON: None. Findings Chest: Lower neck and Axilla: No axillary or supraclavicular lymphadenopathy. Thoracic Vessels: No acute aortic injury. The pulmonary artery is normal in caliber. Lungs and Pleura: No consolidation, pleural effusion or pneumothorax. No suspicious pulmonary nodules are present. Heart and Pericardium: The cardiac chambers are normal in size. No pericardial fluid or thickening is present. Mediastinum and Reyna: No mediastinal hemorrhage. No enlarged lymph nodes are present. Abdomen/pelvis: Liver: Normal. Gallbladder: Normal Spleen: Complex splenic lacerations involving the hilum with small volume surrounding perisplenic hematoma. No active arterial contrast extravasation is identified and the perisplenic collection is not qualitatively enlarge on delayed acquisition. Pancreas: Normal. Kidneys: The kidneys enhance symmetrically. No hydronephrosis, nephrolithiasis or renal mass. Adrenals: Normal. Gastrointestinal: The stomach appears normal. The small bowel and colon appear normal without wall thickening or obstruction. Mesentery/Peritoneum/Retroperitoneum: No ascites. No free intraperitoneal air. No mesenteric or retroperitoneal lymphadenopathy. Pelvic Structures: The urinary bladder is distended with fluid and demonstrates no acute abnormality. The prostate is within normal limits. No free pelvic fluid is noted. No pelvic or inguinal lymphadenopathy is noted. Vasculature: The abdominal aorta and its branches appear normal without evidence of injury. Bones: There is a mildly displaced fracture at the anterior left acetabulum. Lipohemarthrosis of the right hip joint is present with a subtle nondisplaced fracture of the right acetabulum (Series 5, Image 125) . Mildly displaced fractures of the right inferior pubic ramus and also the right sacral ala. Slight cortical irregularities of the lateral left sixth through ninth ribs (series 9 images 22-26) may represent incomplete rib fractures. Soft tissues: Scattered contusions at the right gluteal region and posterior thigh. Procedure Note Romuol River MD - 01/19/2025 PROCEDURE: CT CHEST ABDOMEN PELVIS W CONT, DATE/TIME OF EXAM:01/19/2025 4:54 PM, LOCATION [facility] INDICATION: W19.XXXA: Fall, initial encounter Ordering Provider Reason For Exam: Technologist Note: Additional: None. CONTRAST: IOPAMIDOL 76 % IV SOLN:100 mL EXAMINATION: Computed tomography (CT) of the chest, abdomen, and pelvis with contrast TECHNIQUE: CT of the chest, abdomen, and pelvis was performed after the uneventful administration of 100 mL of Isovue 370 intravenous contrast according to standard protocol. COMPARISON: None. Findings Chest: Lower neck and Axilla: No axillary or supraclavicular lymphadenopathy. Thoracic Vessels: No acute aortic injury. The pulmonary artery is normalin caliber. Lungs and Pleura: No consolidation, pleural effusion or pneumothorax. No suspicious pulmonary nodules are present. Heart and Pericardium: The cardiac chambers are normal in size. No pericardial fluid or thickening is present. Mediastinum and Reyna: No mediastinal hemorrhage. No enlarged lymph nodes are present. Abdomen/pelvis: Liver: Normal. Gallbladder: Normal Spleen: Complex splenic lacerations involving the hilum with smallvolume surrounding perisplenic hematoma. No active arterial contrastextravasation is identified and the perisplenic collection is not qualitativelyenlarge on delayed acquisition. Pancreas: Normal. Kidneys: The kidneys enhance symmetrically. No hydronephrosis, nephrolithiasis or renal mass. Adrenals: Normal. Gastrointestinal: The stomach appears normal. The small bowel and colon appear normal without wall thickening or obstruction. Mesentery/Peritoneum/Retroperitoneum: No ascites. No freeintraperitoneal air. No mesenteric or retroperitoneal lymphadenopathy. Pelvic Structures: The urinary bladder is distended with fluid and demonstrates no acute abnormality. The prostate is within normal limits.No free pelvic fluid is noted. No pelvic or inguinal lymphadenopathy isnoted. Vasculature: The abdominal aorta and its branches appear normal without evidence of injury. Bones: There is a mildly displaced fracture at the anterior left acetabulum. Lipohemarthrosis of the right hip joint is present with a subtle nondisplaced fracture of the right acetabulum (Series 5, [id number]) . Mildly displaced fractures of the right inferior pubic ramus and alsothe right sacral ala. Slight cortical irregularities of the lateral leftsixth through ninth ribs (series 9 images 22-26) may represent incomplete rib fractures. Soft tissues: Scattered contusions at the right gluteal region and posterior thigh. Impression 1.Slight cortical irregularities of the lateral left sixth through ninth ribs (series 9 images 22-26) may represent incomplete rib fractures, otherwise no acute visceral, vascular or osseous injury is identified in the chest. There is a minimally displaced fracture at the left articular pillar of C7, please refer to separately dictated cervical spine CT for further characterization. 2.Complex splenic lacerations involving the hilum with small volume surrounding perisplenic hematoma. No active arterial contrastextravasation is identified and the perisplenic collection is not qualitativelyenlarge on delayed acquisition. Compatible with grade 3 splenic injury. 3.Multiple pelvic fractures including a mildly displaced fracture at the anterior left acetabulum and mildly displaced fractures of the right inferior pubic ramus and also the right sacral ala. Lipohemarthrosis ofthe right hip joint is present, with a subtle nondisplaced fracture of the right acetabulum. Preliminary findings were discussed in detail with the patient's care provider, Dr Rasmussen by Dr. Chetan Guadarrama via telephone at :36 PM with readback comprehension and verification. > Dictated by Chetan Guadarrama D.O. - Diagnostic Supervisory Aide. > Dictated by Supervisory Aide I, Romulo River, MD have personally reviewed and interpreted this examination/study. > Interpreting Provider: Romulo River MD on 01/19/2025 8:18 PM us Sameera Zurita MD CT ORDERABLES Final Result * CT Angio Lower Extremity Right (01/19/2025 4:51 PM CDT) Anatomical Region Laterality Modality Lower Extremity Computed Tomogra phy 01/19/2025 5:53 PM CDT Impressions 01/19/2025 8:02 PM CDT IMPRESSION: 1. Open comminuted displaced fracture of the right femur with radiopaque packing material. 2. No large vessel injury. The vessels in the distal blank are not well evaluated due to the scan outrunning the bolus of contrast. > Dictated by Chetan Guadarrama D.O. - Diagnostic Supervisory Aide. > Dictated by Supervisory Aide I, Romulo River MD have personally reviewed and interpreted this examination/study. > Interpreting Provider: Romulo River MD on 01/19/2025 8:02 PM Narrative 01/19/2025 8:02 PM CDT PROCEDURE: CT ANGIO LOWER EXTREMITY RIGHT, DATE/TIME OF EXAM: 01/19/2025 4:54 PM, LOCATION [facility] INDICATION: W19.XXXA: Fall, initial encounter Ordering Provider Reason For Exam: trauma CONTRAST: IOPAMIDOL 76 % IV SOLN:100 mL COMPARISON: None. Technique: ct of the right lower extremity was performed utilizing standard protocol. 3D reconstructions were performed on an independent workstation. CT dose reduction technique was used, including Automated Exposure Control. FINDINGS: There is an open displaced segmented fracture of the mid diaphysis of the right femur with the two largest segment fragments measuring 3.3 cm and 7.5 cm in length. There is hemorrhage within the anterior compartment of the thigh along the anterior/lateral margin of the femoral fracture fragments measuring approximately 10.7 x 5.2 x 4.1 cm (series 13 image 72; series 7 image 264) this hematoma is heterogenously attenuating and contains scattered foci of gas. Packing material is seen along the posterolateral margin of the thigh musculature. The superficial femoral and popliteal arteries are well opacified with contrast and without injury. No active arterial contrast extravasation is identified. Within the leg there is three-vessel runoff down to the level of the mid tibia/fibula, likely related to timing of the acquisition. Procedure Note Romulo River MD - 01/19/2025 PROCEDURE: CT ANGIO LOWER EXTREMITY RIGHT, DATE/TIME OF EXAM:01/19/2025 4:54 PM, LOCATION [facility] INDICATION: W19.XXXA: Fall, initial encounter Ordering Provider Reason For Exam: trauma CONTRAST: IOPAMIDOL 76 % IV SOLN:100 mL COMPARISON: None. Technique: ct of the right lower extremity was performed utilizingstandard protocol. 3D reconstructions were performed on an independentworkstation. CT dose reduction technique was used, including Automated ExposureControl. FINDINGS: There is an open displaced segmented fracture of the mid diaphysis ofthe right femur with the two largest segment fragments measuring 3.3 cm and7.5 cm in length. There is hemorrhage within the anterior compartment of the thigh along the anterior/lateral margin of the femoral fracturefragments measuring approximately 10.7 x 5.2 x 4.1 cm (series 13 image 72; series7 image 264) this hematoma is heterogenously attenuating and contains scattered foci of gas. Packing material is seen along the posterolateral margin of the thigh musculature. The superficial femoral and popliteal arteries are well opacified with contrast and without injury. No active arterial contrast extravasationis identified. Within the leg there is three-vessel runoff down to the level of the mid tibia/fibula, likely related to timing of the acquisition. IMPRESSION: 1. Open comminuted displaced fracture of the right femur with radiopaque packing material. 2. No large vessel injury. The vessels in the distal blank are not well evaluated due to the scan outrunning the bolus of contrast. > Dictated by Chetan Guadarrama D.O. - Diagnostic Supervisory Aide. > Dictated by Supervisory Aide I, Romulo River MD have personally reviewed and interpreted this examination/study. > Interpreting Provider: Romulo River MD on 01/19/2025 8:02 PM us Sameera Zurita MD CT ORDERABLES Final Result * CT LUMBAR SPINE WO CONTRAST - T/L-spine trauma, Spine fracture (01/19/2025 4:51 PM CDT) Anatomical Region Laterality Modality Spine Computed Tomogra phy 01/19/2025 5:12 PM CDT Impressions 01/19/2025 6:08 PM CDT IMPRESSION: 1. Intraparenchymal hemorrhage in the left schaefer radiata measuring 7 x 6 mm with mild mass effect on the left lateral ventricle. There is additional small intraparenchymal hemorrhage in the left medial temporal lobe measuring 4 mm. Additional small foci of hemorrhage cannot be excluded. 2. Mild hyperdensity and thickening of the falx and tentorial leaflets may suggest small subdural hemorrhage. Also punctate foci of hyper density seen in the posterior left frontal lobe may represent small intraparenchymal petechial hemorrhages. MRI could be obtained if there is concern for diffuse axonal injury. 3. No acute facial bone fractures identified. 4. There is a nondisplaced fracture of the left C7 articular pillar along the superior articulating facet with before meals image 61 series 7. 5. Nondisplaced fracture of the right sacral colby. 6. No fracture in the thoracic or lumbar spine. 7. See dedicated CT chest abdomen pelvis for further findings. The report is dictated by Mohamud Le MD, (vice president of nursing) These findings were discussed in detail with the patient's care provider, Dr. Rasmussen by Dr. Le via telephone at 5:49 PM on 01/19/2025 with readback comprehension and verification. > Dictated by Supervisory Aide I, Tanner Rosen MD have personally reviewed and interpreted this examination/study. > Interpreting Provider: Tanner Rosen MD on 01/19/2025 6:08 PM Narrative 01/19/2025 6:08 PM CDT PROCEDURE: CT HEAD WO CONTRAST, CT FACIAL BONES WO CONTRAST, CT LUMBAR SPINE WO CONTRAST, CT THORACIC SPINE WO CONTRAST, CT CERVICAL SPINE WO CONTRAST, DATE/TIME OF EXAM: 01/19/2025 4:54 PM, LOCATION [facility] INDICATION: W19.XXXA: Fall, initial encounter ADDITIONAL CLINICAL INFORMATION: Ordering Provider Reason For Exam: Technologist Note: Additional: EXAMINATION: 1. Computed tomography (CT) of the head without contrast 2. CT of the maxillofacial bones, orbits, and paranasal sinuses without contrast 3. CT of the cervical spine without contrast 4. CT of the thoracic spine without contrast 5. CT of the lumbar spine without contrast TECHNIQUE: CT of the head, cervical spine, and maxillofacial bones, orbits, and paranasal sinuses was performed without contrast according to standard protocol. Reformatted axial, sagittal, and coronal images of the thoracic and lumbar spine were obtained by the technologist from a concurrently performed body CT and sent to the workstation for review. COMPARISON: No prior study is available for comparison at the time of this dictation. FINDINGS: Head: Intraparenchymal hemorrhage in the left schaefer radiata measuring 7 x 6 mm (series 6 image 36) with mild mass effect on the left lateral ventricle. Additional small intraparenchymal hemorrhage in the left medial temporal lobe measuring 4 mm (series 6 image 45). Additional small foci of intraparenchymal hemorrhage cannot be excluded. Mild hyperdensity and thickening of the falx and tentorial leaflets may suggests small subdural hemorrhage. The basal cisterns are patent. No mass effect or midline shift is seen. The hawthorne-white matter differentiation is normal. No acute calvarial fracture is identified. Maxillofacial: No soft tissue abnormality is identified. The orbits including the globes, optic nerves, retrobulbar fat and extraocular muscles appear normal. The paranasal sinuses are clear. The hard palate, mandible, and temporomandibular joints appear normal. The mastoid air cells are clear. Cervical spine: No soft tissue abnormality is identified. There is a nondisplaced fracture of the left C7 articular pillar. The alignment is normal. The prevertebral soft tissue is normal in thickness. The mineralization of the bones is normal. Vertebral bodies are normal in height. The craniocervical junction is normal. The intervertebral discs appear normal. The central canal is patent. The facets appear normal. The uncovertebral joints appear normal. No neural foraminal stenosis is seen. Thoracic spine: No soft tissue abnormality is identified. The alignment is normal. The mineralization of the bones is normal. Vertebral bodies are normal in height without evidence of acute fracture. The intervertebral discs appear normal. The central canal is patent. The facets appear normal. No neural foraminal stenosis is seen. Lumbar spine: There is a splenic laceration, see dedicated body report for further characterization. The alignment is normal. The mineralization of the bones is normal. Vertebral bodies are normal in height without evidence of acute fracture. The intervertebral discs appear normal. The central canal is patent. The facets appear normal. No neural foraminal stenosis is seen. There is a nondisplaced fracture of the right sacral ala. Brain injury guidelines: Skull fracture: No Subdural hematoma: </=4mm. Epidural hematoma: No epidural hematoma. Intraparenchymal hemorrhage: 5-7 mm and/or 2 locations. Subdural hemorrhage: No subarachnoid hemorrhage. Intraventricular hemorrhage: No. Midline shift: No. Procedure Note Tanner Rosen MD - 01/19/2025 PROCEDURE: CT HEAD WO CONTRAST, CT FACIAL BONES WO CONTRAST, CT LUMBAR SPINE WO CONTRAST, CT THORACIC SPINE WO CONTRAST, CT CERVICAL SPINE WO CONTRAST, DATE/TIME OF EXAM: 01/19/2025 4:54 PM, LOCATION [facility] INDICATION: W19.XXXA: Fall, initial encounter ADDITIONAL CLINICAL INFORMATION: Ordering Provider Reason For Exam: Technologist Note: Additional: EXAMINATION: 1. Computed tomography (CT) of the head without contrast 2. CT of the maxillofacial bones, orbits, and paranasal sinuses without contrast 3. CT of the cervical spine without contrast 4. CT of the thoracic spine without contrast 5. CT of the lumbar spine without contrast TECHNIQUE: CT of the head, cervical spine, and maxillofacial bones,orbits, and paranasal sinuses was performed without contrast according tostandard protocol. Reformatted axial, sagittal, and coronal images of thethoracic and lumbar spine were obtained by the technologist from a concurrently performed body CT and sent to the workstation for review. COMPARISON: No prior study is available for comparison at the time ofthis dictation. FINDINGS: Head: Intraparenchymal hemorrhage in the left schaefer radiata measuring 7 x 6mm (series 6 image 36) with mild mass effect on the left lateral ventricle. Additional small intraparenchymal hemorrhage in the left medial temporal lobe measuring 4 mm (series 6 image 45). Additional small foci of intraparenchymal hemorrhage cannot be excluded. Mild hyperdensity and thickening of the falx and tentorial leaflets may suggests smallsubdural hemorrhage. The basal cisterns are patent. No mass effect or midlineshift is seen. The hawthorne-white matter differentiation is normal. No acute calvarial fracture is identified. Maxillofacial: No soft tissue abnormality is identified. The orbits including the globes, optic nerves, retrobulbar fat and extraocular muscles appear normal. The paranasal sinuses are clear. The hard palate, mandible, and temporomandibular joints appear normal. The mastoid air cells are clear. Cervical spine: No soft tissue abnormality is identified. There is a nondisplaced fracture of the left C7 articular pillar. The alignment is normal. The prevertebral soft tissue is normal in thickness. The mineralization of the bones is normal. Vertebral bodiesare normal in height. The craniocervical junction is normal. Theintervertebral discs appear normal. The central canal is patent. The facets appearnormal. The uncovertebral joints appear normal. No neural foraminal stenosis is seen. Thoracic spine: No soft tissue abnormality is identified. The alignment is normal. The mineralization of the bones is normal. Vertebral bodies are normal in height without evidence of acutefracture. The intervertebral discs appear normal. The central canal is patent. The facets appear normal. No neural foraminal stenosis is seen. Lumbar spine: There is a splenic laceration, see dedicated body report for further characterization. The alignment is normal. The mineralization of the bones is normal. Vertebral bodies are normal in height without evidence of acutefracture. The intervertebral discs appear normal. The central canal is patent. The facets appear normal. No neural foraminal stenosis is seen. There is a nondisplaced fracture of the right sacral ala. Brain injury guidelines: Skull fracture: No Subdural hematoma: </=4mm. Epidural hematoma: No epidural hematoma. Intraparenchymal hemorrhage: 5-7 mm and/or 2 locations. Subdural hemorrhage: No subarachnoid hemorrhage. Intraventricular hemorrhage: No. Midline shift: No. IMPRESSION: 1. Intraparenchymal hemorrhage in the left schaefer radiata measuring 7 x6 mm with mild mass effect on the left lateral ventricle. There isadditional small intraparenchymal hemorrhage in the left medial temporal lobe measuring 4 mm. Additional small foci of hemorrhage cannot be excluded. 2. Mild hyperdensity and thickening of the falx and tentorial leafletsmay suggest small subdural hemorrhage. Also punctate foci of hyper densityseen in the posterior left frontal lobe may represent small intraparenchymal petechial hemorrhages. MRI could be obtained if there is concern for diffuse axonal injury. 3. No acute facial bone fractures identified. 4. There is a nondisplaced fracture of the left C7 articular pillaralong the superior articulating facet with before meals image 61 series 7. 5. Nondisplaced fracture of the right sacral colby. 6. No fracture in the thoracic or lumbar spine. 7. See dedicated CT chest abdomen pelvis for further findings. The report is dictated by Mohamud Le MD, (vice president of nursing) These findings were discussed in detail with the patient's careprovider, Dr. Rasmussen by Dr. Le via telephone at 5:49 PM on 01/19/2025 withreadback comprehension and verification. > Dictated by Supervisory Aide I, Tanner Rosen MD have personally reviewed and interpreted this examination/study. > Interpreting Provider: Tnaner Rosen MD on 01/19/2025 6:08 PM us Sameera Zurita MD CT ORDERABLES Final Result * CT THORACIC SPINE WO CONTRAST - T/L-spine trauma, spine fracture (01/19/2025 4:51 PM CDT) Anatomical Region Laterality Modality Spine Computed Tomogra phy 01/19/2025 5:12 PM CDT Impressions 01/19/2025 6:08 PM CDT IMPRESSION: 1. Intraparenchymal hemorrhage in the left schaefer radiata measuring 7 x 6 mm with mild mass effect on the left lateral ventricle. There is additional small intraparenchymal hemorrhage in the left medial temporal lobe measuring 4 mm. Additional small foci of hemorrhage cannot be excluded. 2. Mild hyperdensity and thickening of the falx and tentorial leaflets may suggest small subdural hemorrhage. Also punctate foci of hyper density seen in the posterior left frontal lobe may represent small intraparenchymal petechial hemorrhages. MRI could be obtained if there is concern for diffuse axonal injury. 3. No acute facial bone fractures identified. 4. There is a nondisplaced fracture of the left C7 articular pillar along the superior articulating facet with before meals image 61 series 7. 5. Nondisplaced fracture of the right sacral colby. 6. No fracture in the thoracic or lumbar spine. 7. See dedicated CT chest abdomen pelvis for further findings. The report is dictated by Mohamud Le MD, (vice president of nursing) These findings were discussed in detail with the patient's care provider, Dr. Rasmussen by Dr. Le via telephone at 5:49 PM on 01/19/2025 with readback comprehension and verification. > Dictated by Supervisory Aide I, Tanner Rosen MD have personally reviewed and interpreted this examination/study. > Interpreting Provider: Tanner Rosen MD on 01/19/2025 6:08 PM Narrative 01/19/2025 6:08 PM CDT PROCEDURE: CT HEAD WO CONTRAST, CT FACIAL BONES WO CONTRAST, CT LUMBAR SPINE WO CONTRAST, CT THORACIC SPINE WO CONTRAST, CT CERVICAL SPINE WO CONTRAST, DATE/TIME OF EXAM: 01/19/2025 4:54 PM, LOCATION [facility] INDICATION: W19.XXXA: Fall, initial encounter ADDITIONAL CLINICAL INFORMATION: Ordering Provider Reason For Exam: Technologist Note: Additional: EXAMINATION: 1. Computed tomography (CT) of the head without contrast 2. CT of the maxillofacial bones, orbits, and paranasal sinuses without contrast 3. CT of the cervical spine without contrast 4. CT of the thoracic spine without contrast 5. CT of the lumbar spine without contrast TECHNIQUE: CT of the head, cervical spine, and maxillofacial bones, orbits, and paranasal sinuses was performed without contrast according to standard protocol. Reformatted axial, sagittal, and coronal images of the thoracic and lumbar spine were obtained by the technologist from a concurrently performed body CT and sent to the workstation for review. COMPARISON: No prior study is available for comparison at the time of this dictation. FINDINGS: Head: Intraparenchymal hemorrhage in the left schaefer radiata measuring 7 x 6 mm (series 6 image 36) with mild mass effect on the left lateral ventricle. Additional small intraparenchymal hemorrhage in the left medial temporal lobe measuring 4 mm (series 6 image 45). Additional small foci of intraparenchymal hemorrhage cannot be excluded. Mild hyperdensity and thickening of the falx and tentorial leaflets may suggests small subdural hemorrhage. The basal cisterns are patent. No mass effect or midline shift is seen. The hawthorne-white matter differentiation is normal. No acute calvarial fracture is identified. Maxillofacial: No soft tissue abnormality is identified. The orbits including the globes, optic nerves, retrobulbar fat and extraocular muscles appear normal. The paranasal sinuses are clear. The hard palate, mandible, and temporomandibular joints appear normal. The mastoid air cells are clear. Cervical spine: No soft tissue abnormality is identified. There is a nondisplaced fracture of the left C7 articular pillar. The alignment is normal. The prevertebral soft tissue is normal in thickness. The mineralization of the bones is normal. Vertebral bodies are normal in height. The craniocervical junction is normal. The intervertebral discs appear normal. The central canal is patent. The facets appear normal. The uncovertebral joints appear normal. No neural foraminal stenosis is seen. Thoracic spine: No soft tissue abnormality is identified. The alignment is normal. The mineralization of the bones is normal. Vertebral bodies are normal in height without evidence of acute fracture. The intervertebral discs appear normal. The central canal is patent. The facets appear normal. No neural foraminal stenosis is seen. Lumbar spine: There is a splenic laceration, see dedicated body report for further characterization. The alignment is normal. The mineralization of the bones is normal. Vertebral bodies are normal in height without evidence of acute fracture. The intervertebral discs appear normal. The central canal is patent. The facets appear normal. No neural foraminal stenosis is seen. There is a nondisplaced fracture of the right sacral ala. Brain injury guidelines: Skull fracture: No Subdural hematoma: </=4mm. Epidural hematoma: No epidural hematoma. Intraparenchymal hemorrhage: 5-7 mm and/or 2 locations. Subdural hemorrhage: No subarachnoid hemorrhage. Intraventricular hemorrhage: No. Midline shift: No. Procedure Note Tanner Rosen MD - 01/19/2025 PROCEDURE: CT HEAD WO CONTRAST, CT FACIAL BONES WO CONTRAST, CT LUMBAR SPINE WO CONTRAST, CT THORACIC SPINE WO CONTRAST, CT CERVICAL SPINE WO CONTRAST, DATE/TIME OF EXAM: 01/19/2025 4:54 PM, LOCATION [facility] INDICATION: W19.XXXA: Fall, initial encounter ADDITIONAL CLINICAL INFORMATION: Ordering Provider Reason For Exam: Technologist Note: Additional: EXAMINATION: 1. Computed tomography (CT) of the head without contrast 2. CT of the maxillofacial bones, orbits, and paranasal sinuses without contrast 3. CT of the cervical spine without contrast 4. CT of the thoracic spine without contrast 5. CT of the lumbar spine without contrast TECHNIQUE: CT of the head, cervical spine, and maxillofacial bones,orbits, and paranasal sinuses was performed without contrast according tostandard protocol. Reformatted axial, sagittal, and coronal images of thethoracic and lumbar spine were obtained by the technologist from a concurrently performed body CT and sent to the workstation for review. COMPARISON: No prior study is available for comparison at the time ofthis dictation. FINDINGS: Head: Intraparenchymal hemorrhage in the left schaefer radiata measuring 7 x 6mm (series 6 image 36) with mild mass effect on the left lateral ventricle. Additional small intraparenchymal hemorrhage in the left medial temporal lobe measuring 4 mm (series 6 image 45). Additional small foci of intraparenchymal hemorrhage cannot be excluded. Mild hyperdensity and thickening of the falx and tentorial leaflets may suggests smallsubdural hemorrhage. The basal cisterns are patent. No mass effect or midlineshift is seen. The hawthorne-white matter differentiation is normal. No acute calvarial fracture is identified. Maxillofacial: No soft tissue abnormality is identified. The orbits including the globes, optic nerves, retrobulbar fat and extraocular muscles appear normal. The paranasal sinuses are clear. The hard palate, mandible, and temporomandibular joints appear normal. The mastoid air cells are clear. Cervical spine: No soft tissue abnormality is identified. There is a nondisplaced fracture of the left C7 articular pillar. The alignment is normal. The prevertebral soft tissue is normal in thickness. The mineralization of the bones is normal. Vertebral bodiesare normal in height. The craniocervical junction is normal. Theintervertebral discs appear normal. The central canal is patent. The facets appearnormal. The uncovertebral joints appear normal. No neural foraminal stenosis is seen. Thoracic spine: No soft tissue abnormality is identified. The alignment is normal. The mineralization of the bones is normal. Vertebral bodies are normal in height without evidence of acutefracture. The intervertebral discs appear normal. The central canal is patent. The facets appear normal. No neural foraminal stenosis is seen. Lumbar spine: There is a splenic laceration, see dedicated body report for further characterization. The alignment is normal. The mineralization of the bones is normal. Vertebral bodies are normal in height without evidence of acutefracture. The intervertebral discs appear normal. The central canal is patent. The facets appear normal. No neural foraminal stenosis is seen. There is a nondisplaced fracture of the right sacral ala. Brain injury guidelines: Skull fracture: No Subdural hematoma: </=4mm. Epidural hematoma: No epidural hematoma. Intraparenchymal hemorrhage: 5-7 mm and/or 2 locations. Subdural hemorrhage: No subarachnoid hemorrhage. Intraventricular hemorrhage: No. Midline shift: No. IMPRESSION: 1. Intraparenchymal hemorrhage in the left schaefer radiata measuring 7 x6 mm with mild mass effect on the left lateral ventricle. There isadditional small intraparenchymal hemorrhage in the left medial temporal lobe measuring 4 mm. Additional small foci of hemorrhage cannot be excluded. 2. Mild hyperdensity and thickening of the falx and tentorial leafletsmay suggest small subdural hemorrhage. Also punctate foci of hyper densityseen in the posterior left frontal lobe may represent small intraparenchymal petechial hemorrhages. MRI could be obtained if there is concern for diffuse axonal injury. 3. No acute facial bone fractures identified. 4. There is a nondisplaced fracture of the left C7 articular pillaralong the superior articulating facet with before meals image 61 series 7. 5. Nondisplaced fracture of the right sacral colyb. 6. No fracture in the thoracic or lumbar spine. 7. See dedicated CT chest abdomen pelvis for further findings. The report is dictated by Mohamud Le MD, (vice president of nursing) These findings were discussed in detail with the patient's careprovider, Dr. Rasmussen by Dr. Le via telephone at 5:49 PM on 01/19/2025 withreadback comprehension and verification. > Dictated by Supervisory Aide I, Tanner Rosen MD have personally reviewed and interpreted this examination/study. > Interpreting Provider: Tanner Rosen MD on 01/19/2025 6:08 PM us Sameera Zurita MD CT ORDERABLES Final Result * CT CERVICAL SPINE WO CONTRAST - C-Spine Trauma, Spine fracture (01/19/2025 4:51 PM CDT) Anatomical Region Laterality Modality Spine Computed Tomogra phy 01/19/2025 5:12 PM CDT Impressions 01/19/2025 6:08 PM CDT IMPRESSION: 1. Intraparenchymal hemorrhage in the left schaefer radiata measuring 7 x 6 mm with mild mass effect on the left lateral ventricle. There is additional small intraparenchymal hemorrhage in the left medial temporal lobe measuring 4 mm. Additional small foci of hemorrhage cannot be excluded. 2. Mild hyperdensity and thickening of the falx and tentorial leaflets may suggest small subdural hemorrhage. Also punctate foci of hyper density seen in the posterior left frontal lobe may represent small intraparenchymal petechial hemorrhages. MRI could be obtained if there is concern for diffuse axonal injury. 3. No acute facial bone fractures identified. 4. There is a nondisplaced fracture of the left C7 articular pillar along the superior articulating facet with before meals image 61 series 7. 5. Nondisplaced fracture of the right sacral colby. 6. No fracture in the thoracic or lumbar spine. 7. See dedicated CT chest abdomen pelvis for further findings. The report is dictated by Mohamud Le MD, (vice president of nursing) These findings were discussed in detail with the patient's care provider, Dr. Rasmussen by Dr. Le via telephone at 5:49 PM on 01/19/2025 with readback comprehension and verification. > Dictated by Supervisory Aide I, Tanner Rosen MD have personally reviewed and interpreted this examination/study. > Interpreting Provider: Tanner Rosen MD on 01/19/2025 6:08 PM Narrative 01/19/2025 6:08 PM CDT PROCEDURE: CT HEAD WO CONTRAST, CT FACIAL BONES WO CONTRAST, CT LUMBAR SPINE WO CONTRAST, CT THORACIC SPINE WO CONTRAST, CT CERVICAL SPINE WO CONTRAST, DATE/TIME OF EXAM: 01/19/2025 4:54 PM, LOCATION [facility] INDICATION: W19.XXXA: Fall, initial encounter ADDITIONAL CLINICAL INFORMATION: Ordering Provider Reason For Exam: Technologist Note: Additional: EXAMINATION: 1. Computed tomography (CT) of the head without contrast 2. CT of the maxillofacial bones, orbits, and paranasal sinuses without contrast 3. CT of the cervical spine without contrast 4. CT of the thoracic spine without contrast 5. CT of the lumbar spine without contrast TECHNIQUE: CT of the head, cervical spine, and maxillofacial bones, orbits, and paranasal sinuses was performed without contrast according to standard protocol. Reformatted axial, sagittal, and coronal images of the thoracic and lumbar spine were obtained by the technologist from a concurrently performed body CT and sent to the workstation for review. COMPARISON: No prior study is available for comparison at the time of this dictation. FINDINGS: Head: Intraparenchymal hemorrhage in the left schaefer radiata measuring 7 x 6 mm (series 6 image 36) with mild mass effect on the left lateral ventricle. Additional small intraparenchymal hemorrhage in the left medial temporal lobe measuring 4 mm (series 6 image 45). Additional small foci of intraparenchymal hemorrhage cannot be excluded. Mild hyperdensity and thickening of the falx and tentorial leaflets may suggests small subdural hemorrhage. The basal cisterns are patent. No mass effect or midline shift is seen. The hawthorne-white matter differentiation is normal. No acute calvarial fracture is identified. Maxillofacial: No soft tissue abnormality is identified. The orbits including the globes, optic nerves, retrobulbar fat and extraocular muscles appear normal. The paranasal sinuses are clear. The hard palate, mandible, and temporomandibular joints appear normal. The mastoid air cells are clear. Cervical spine: No soft tissue abnormality is identified. There is a nondisplaced fracture of the left C7 articular pillar. The alignment is normal. The prevertebral soft tissue is normal in thickness. The mineralization of the bones is normal. Vertebral bodies are normal in height. The craniocervical junction is normal. The intervertebral discs appear normal. The central canal is patent. The facets appear normal. The uncovertebral joints appear normal. No neural foraminal stenosis is seen. Thoracic spine: No soft tissue abnormality is identified. The alignment is normal. The mineralization of the bones is normal. Vertebral bodies are normal in height without evidence of acute fracture. The intervertebral discs appear normal. The central canal is patent. The facets appear normal. No neural foraminal stenosis is seen. Lumbar spine: There is a splenic laceration, see dedicated body report for further characterization. The alignment is normal. The mineralization of the bones is normal. Vertebral bodies are normal in height without evidence of acute fracture. The intervertebral discs appear normal. The central canal is patent. The facets appear normal. No neural foraminal stenosis is seen. There is a nondisplaced fracture of the right sacral ala. Brain injury guidelines: Skull fracture: No Subdural hematoma: </=4mm. Epidural hematoma: No epidural hematoma. Intraparenchymal hemorrhage: 5-7 mm and/or 2 locations. Subdural hemorrhage: No subarachnoid hemorrhage. Intraventricular hemorrhage: No. Midline shift: No. Procedure Note Tanner Rosen MD - 01/19/2025 PROCEDURE: CT HEAD WO CONTRAST, CT FACIAL BONES WO CONTRAST, CT LUMBAR SPINE WO CONTRAST, CT THORACIC SPINE WO CONTRAST, CT CERVICAL SPINE WO CONTRAST, DATE/TIME OF EXAM: 01/19/2025 4:54 PM, LOCATION [facility] INDICATION: W19.XXXA: Fall, initial encounter ADDITIONAL CLINICAL INFORMATION: Ordering Provider Reason For Exam: Technologist Note: Additional: EXAMINATION: 1. Computed tomography (CT) of the head without contrast 2. CT of the maxillofacial bones, orbits, and paranasal sinuses without contrast 3. CT of the cervical spine without contrast 4. CT of the thoracic spine without contrast 5. CT of the lumbar spine without contrast TECHNIQUE: CT of the head, cervical spine, and maxillofacial bones,orbits, and paranasal sinuses was performed without contrast according tostandard protocol. Reformatted axial, sagittal, and coronal images of thethoracic and lumbar spine were obtained by the technologist from a concurrently performed body CT and sent to the workstation for review. COMPARISON: No prior study is available for comparison at the time ofthis dictation. FINDINGS: Head: Intraparenchymal hemorrhage in the left schaefer radiata measuring 7 x 6mm (series 6 image 36) with mild mass effect on the left lateral ventricle. Additional small intraparenchymal hemorrhage in the left medial temporal lobe measuring 4 mm (series 6 image 45). Additional small foci of intraparenchymal hemorrhage cannot be excluded. Mild hyperdensity and thickening of the falx and tentorial leaflets may suggests smallsubdural hemorrhage. The basal cisterns are patent. No mass effect or midlineshift is seen. The hawthorne-white matter differentiation is normal. No acute calvarial fracture is identified. Maxillofacial: No soft tissue abnormality is identified. The orbits including the globes, optic nerves, retrobulbar fat and extraocular muscles appear normal. The paranasal sinuses are clear. The hard palate, mandible, and temporomandibular joints appear normal. The mastoid air cells are clear. Cervical spine: No soft tissue abnormality is identified. There is a nondisplaced fracture of the left C7 articular pillar. The alignment is normal. The prevertebral soft tissue is normal in thickness. The mineralization of the bones is normal. Vertebral bodiesare normal in height. The craniocervical junction is normal. Theintervertebral discs appear normal. The central canal is patent. The facets appearnormal. The uncovertebral joints appear normal. No neural foraminal stenosis is seen. Thoracic spine: No soft tissue abnormality is identified. The alignment is normal. The mineralization of the bones is normal. Vertebral bodies are normal in height without evidence of acutefracture. The intervertebral discs appear normal. The central canal is patent. The facets appear normal. No neural foraminal stenosis is seen. Lumbar spine: There is a splenic laceration, see dedicated body report for further characterization. The alignment is normal. The mineralization of the bones is normal. Vertebral bodies are normal in height without evidence of acutefracture. The intervertebral discs appear normal. The central canal is patent. The facets appear normal. No neural foraminal stenosis is seen. There is a nondisplaced fracture of the right sacral ala. Brain injury guidelines: Skull fracture: No Subdural hematoma: </=4mm. Epidural hematoma: No epidural hematoma. Intraparenchymal hemorrhage: 5-7 mm and/or 2 locations. Subdural hemorrhage: No subarachnoid hemorrhage. Intraventricular hemorrhage: No. Midline shift: No. IMPRESSION: 1. Intraparenchymal hemorrhage in the left schaefer radiata measuring 7 x6 mm with mild mass effect on the left lateral ventricle. There isadditional small intraparenchymal hemorrhage in the left medial temporal lobe measuring 4 mm. Additional small foci of hemorrhage cannot be excluded. 2. Mild hyperdensity and thickening of the falx and tentorial leafletsmay suggest small subdural hemorrhage. Also punctate foci of hyper densityseen in the posterior left frontal lobe may represent small intraparenchymal petechial hemorrhages. MRI could be obtained if there is concern for diffuse axonal injury. 3. No acute facial bone fractures identified. 4. There is a nondisplaced fracture of the left C7 articular pillaralong the superior articulating facet with before meals image 61 series 7. 5. Nondisplaced fracture of the right sacral colby. 6. No fracture in the thoracic or lumbar spine. 7. See dedicated CT chest abdomen pelvis for further findings. The report is dictated by Mohamud Le MD, (vice president of nursing) These findings were discussed in detail with the patient's careprovider, Dr. Rasmussen by Dr. Le via telephone at 5:49 PM on 01/19/2025 withreadback comprehension and verification. > Dictated by Supervisory Aide I, Tanner Rosen MD have personally reviewed and interpreted this examination/study. > Interpreting Provider: Tanner Rosen MD on 01/19/2025 6:08 PM us Sameera Zurita MD CT ORDERABLES Final Result * CT FACIAL BONES WO CONTRAST - Facial trauma, fx suspected, blunt (01/19/2025 4:51 PM CDT) Anatomical Region Laterality Modality Head Computed Tomogra phy 01/19/2025 5:12 PM CDT Impressions 01/19/2025 6:08 PM CDT IMPRESSION: 1. Intraparenchymal hemorrhage in the left schaefer radiata measuring 7 x 6 mm with mild mass effect on the left lateral ventricle. There is additional small intraparenchymal hemorrhage in the left medial temporal lobe measuring 4 mm. Additional small foci of hemorrhage cannot be excluded. 2. Mild hyperdensity and thickening of the falx and tentorial leaflets may suggest small subdural hemorrhage. Also punctate foci of hyper density seen in the posterior left frontal lobe may represent small intraparenchymal petechial hemorrhages. MRI could be obtained if there is concern for diffuse axonal injury. 3. No acute facial bone fractures identified. 4. There is a nondisplaced fracture of the left C7 articular pillar along the superior articulating facet with before meals image 61 series 7. 5. Nondisplaced fracture of the right sacral colby. 6. No fracture in the thoracic or lumbar spine. 7. See dedicated CT chest abdomen pelvis for further findings. The report is dictated by Mohamud Le MD, (vice president of nursing) These findings were discussed in detail with the patient's care provider, Dr. Rasmussen by Dr. Le via telephone at 5:49 PM on 01/19/2025 with readback comprehension and verification. > Dictated by Supervisory Aide I, Tanner Rosen MD have personally reviewed and interpreted this examination/study. > Interpreting Provider: Tanner Rosen MD on 01/19/2025 6:08 PM Narrative 01/19/2025 6:08 PM CDT PROCEDURE: CT HEAD WO CONTRAST, CT FACIAL BONES WO CONTRAST, CT LUMBAR SPINE WO CONTRAST, CT THORACIC SPINE WO CONTRAST, CT CERVICAL SPINE WO CONTRAST, DATE/TIME OF EXAM: 01/19/2025 4:54 PM, LOCATION [facility] INDICATION: W19.XXXA: Fall, initial encounter ADDITIONAL CLINICAL INFORMATION: Ordering Provider Reason For Exam: Technologist Note: Additional: EXAMINATION: 1. Computed tomography (CT) of the head without contrast 2. CT of the maxillofacial bones, orbits, and paranasal sinuses without contrast 3. CT of the cervical spine without contrast 4. CT of the thoracic spine without contrast 5. CT of the lumbar spine without contrast TECHNIQUE: CT of the head, cervical spine, and maxillofacial bones, orbits, and paranasal sinuses was performed without contrast according to standard protocol. Reformatted axial, sagittal, and coronal images of the thoracic and lumbar spine were obtained by the technologist from a concurrently performed body CT and sent to the workstation for review. COMPARISON: No prior study is available for comparison at the time of this dictation. FINDINGS: Head: Intraparenchymal hemorrhage in the left schaefer radiata measuring 7 x 6 mm (series 6 image 36) with mild mass effect on the left lateral ventricle. Additional small intraparenchymal hemorrhage in the left medial temporal lobe measuring 4 mm (series 6 image 45). Additional small foci of intraparenchymal hemorrhage cannot be excluded. Mild hyperdensity and thickening of the falx and tentorial leaflets may suggests small subdural hemorrhage. The basal cisterns are patent. No mass effect or midline shift is seen. The hawthorne-white matter differentiation is normal. No acute calvarial fracture is identified. Maxillofacial: No soft tissue abnormality is identified. The orbits including the globes, optic nerves, retrobulbar fat and extraocular muscles appear normal. The paranasal sinuses are clear. The hard palate, mandible, and temporomandibular joints appear normal. The mastoid air cells are clear. Cervical spine: No soft tissue abnormality is identified. There is a nondisplaced fracture of the left C7 articular pillar. The alignment is normal. The prevertebral soft tissue is normal in thickness. The mineralization of the bones is normal. Vertebral bodies are normal in height. The craniocervical junction is normal. The intervertebral discs appear normal. The central canal is patent. The facets appear normal. The uncovertebral joints appear normal. No neural foraminal stenosis is seen. Thoracic spine: No soft tissue abnormality is identified. The alignment is normal. The mineralization of the bones is normal. Vertebral bodies are normal in height without evidence of acute fracture. The intervertebral discs appear normal. The central canal is patent. The facets appear normal. No neural foraminal stenosis is seen. Lumbar spine: There is a splenic laceration, see dedicated body report for further characterization. The alignment is normal. The mineralization of the bones is normal. Vertebral bodies are normal in height without evidence of acute fracture. The intervertebral discs appear normal. The central canal is patent. The facets appear normal. No neural foraminal stenosis is seen. There is a nondisplaced fracture of the right sacral ala. Brain injury guidelines: Skull fracture: No Subdural hematoma: </=4mm. Epidural hematoma: No epidural hematoma. Intraparenchymal hemorrhage: 5-7 mm and/or 2 locations. Subdural hemorrhage: No subarachnoid hemorrhage. Intraventricular hemorrhage: No. Midline shift: No. Procedure Note Tanner Rosen MD - 01/19/2025 PROCEDURE: CT HEAD WO CONTRAST, CT FACIAL BONES WO CONTRAST, CT LUMBAR SPINE WO CONTRAST, CT THORACIC SPINE WO CONTRAST, CT CERVICAL SPINE WO CONTRAST, DATE/TIME OF EXAM: 01/19/2025 4:54 PM, LOCATION [facility] INDICATION: W19.XXXA: Fall, initial encounter ADDITIONAL CLINICAL INFORMATION: Ordering Provider Reason For Exam: Technologist Note: Additional: EXAMINATION: 1. Computed tomography (CT) of the head without contrast 2. CT of the maxillofacial bones, orbits, and paranasal sinuses without contrast 3. CT of the cervical spine without contrast 4. CT of the thoracic spine without contrast 5. CT of the lumbar spine without contrast TECHNIQUE: CT of the head, cervical spine, and maxillofacial bones,orbits, and paranasal sinuses was performed without contrast according tostandard protocol. Reformatted axial, sagittal, and coronal images of thethoracic and lumbar spine were obtained by the technologist from a concurrently performed body CT and sent to the workstation for review. COMPARISON: No prior study is available for comparison at the time ofthis dictation. FINDINGS: Head: Intraparenchymal hemorrhage in the left schaefer radiata measuring 7 x 6mm (series 6 image 36) with mild mass effect on the left lateral ventricle. Additional small intraparenchymal hemorrhage in the left medial temporal lobe measuring 4 mm (series 6 image 45). Additional small foci of intraparenchymal hemorrhage cannot be excluded. Mild hyperdensity and thickening of the falx and tentorial leaflets may suggests smallsubdural hemorrhage. The basal cisterns are patent. No mass effect or midlineshift is seen. The hawthorne-white matter differentiation is normal. No acute calvarial fracture is identified. Maxillofacial: No soft tissue abnormality is identified. The orbits including the globes, optic nerves, retrobulbar fat and extraocular muscles appear normal. The paranasal sinuses are clear. The hard palate, mandible, and temporomandibular joints appear normal. The mastoid air cells are clear. Cervical spine: No soft tissue abnormality is identified. There is a nondisplaced fracture of the left C7 articular pillar. The alignment is normal. The prevertebral soft tissue is normal in thickness. The mineralization of the bones is normal. Vertebral bodiesare normal in height. The craniocervical junction is normal. Theintervertebral discs appear normal. The central canal is patent. The facets appearnormal. The uncovertebral joints appear normal. No neural foraminal stenosis is seen. Thoracic spine: No soft tissue abnormality is identified. The alignment is normal. The mineralization of the bones is normal. Vertebral bodies are normal in height without evidence of acutefracture. The intervertebral discs appear normal. The central canal is patent. The facets appear normal. No neural foraminal stenosis is seen. Lumbar spine: There is a splenic laceration, see dedicated body report for further characterization. The alignment is normal. The mineralization of the bones is normal. Vertebral bodies are normal in height without evidence of acutefracture. The intervertebral discs appear normal. The central canal is patent. The facets appear normal. No neural foraminal stenosis is seen. There is a nondisplaced fracture of the right sacral ala. Brain injury guidelines: Skull fracture: No Subdural hematoma: </=4mm. Epidural hematoma: No epidural hematoma. Intraparenchymal hemorrhage: 5-7 mm and/or 2 locations. Subdural hemorrhage: No subarachnoid hemorrhage. Intraventricular hemorrhage: No. Midline shift: No. IMPRESSION: 1. Intraparenchymal hemorrhage in the left schaefer radiata measuring 7 x6 mm with mild mass effect on the left lateral ventricle. There isadditional small intraparenchymal hemorrhage in the left medial temporal lobe measuring 4 mm. Additional small foci of hemorrhage cannot be excluded. 2. Mild hyperdensity and thickening of the falx and tentorial leafletsmay suggest small subdural hemorrhage. Also punctate foci of hyper densityseen in the posterior left frontal lobe may represent small intraparenchymal petechial hemorrhages. MRI could be obtained if there is concern for diffuse axonal injury. 3. No acute facial bone fractures identified. 4. There is a nondisplaced fracture of the left C7 articular pillaralong the superior articulating facet with before meals image 61 series 7. 5. Nondisplaced fracture of the right sacral colby. 6. No fracture in the thoracic or lumbar spine. 7. See dedicated CT chest abdomen pelvis for further findings. The report is dictated by Mohamud Le MD, (vice president of nursing) These findings were discussed in detail with the patient's careprovider, Dr. Rasmussen by Dr. Le via telephone at 5:49 PM on 01/19/2025 withreadback comprehension and verification. > Dictated by Supervisory Aide I, Tanner Rosen MD have personally reviewed and interpreted this examination/study. > Interpreting Provider: Tanner Rosen MD on 01/19/2025 6:08 PM us Sameera Zurita MD CT ORDERABLES Final Result * XR PELVIS 1 OR 2VW (01/19/2025 4:30 PM CDT) Anatomical Region Laterality Modality Pelvis Digital Radiogra phy 01/19/2025 4:39 PM CDT Impressions 01/19/2025 4:59 PM CDT IMPRESSION: 1.Minimally displaced fracture of the right inferior pubic rami. 2.Mildly comminuted left puboacetabular junction fracture is better evaluated on concurrent CT. Report dictated by Mohamud Le MD, (vice president of nursing). > Dictated by Supervisory Aide I, Dread Wagner MD have personally reviewed and interpreted this examination/study. > Interpreting Provider: Dread Wagner MD on 01/19/2025 4:59 PM Narrative 01/19/2025 4:59 PM CDT PROCEDURE: XR PELVIS 1 OR 2VW, DATE/TIME OF EXAM: 01/19/2025 4:30 PM, LOCATION [facility] INDICATION: W19.XXXA: Fall, initial encounter ADDITIONAL CLINICAL INFORMATION: Ordering Provider Reason For Exam: Technologist Note: Additional: COMPARISON: None. FINDINGS: Minimally displaced fracture of the right inferior pubic ramus. Mildly comminuted left puboacetabular junction fracture is better evaluated on concurrent CT. The femoral heads appear well-seated within their respective acetabula. The pubic symphysis is intact. Bone density and texture are normal. The sacroiliac joints are normal. Procedure Note Dread Wagner MD - 01/19/2025 PROCEDURE: XR PELVIS 1 OR 2VW, DATE/TIME OF EXAM: 01/19/2025 4:30 PM, LOCATION [facility] INDICATION: W19.XXXA: Fall, initial encounter ADDITIONAL CLINICAL INFORMATION: Ordering Provider Reason For Exam: Technologist Note: Additional: COMPARISON: None. FINDINGS: Minimally displaced fracture of the right inferior pubic ramus. Mildly comminuted left puboacetabular junction fracture is better evaluated on concurrent CT. The femoral heads appear well-seated within theirrespective acetabula. The pubic symphysis is intact. Bone density and texture are normal. The sacroiliac joints are normal. IMPRESSION: 1.Minimally displaced fracture of the right inferior pubic rami. 2.Mildly comminuted left puboacetabular junction fracture is better evaluated on concurrent CT. Report dictated by Mohamud Le MD, (vice president of nursing). > Dictated by Supervisory Aide I, Dread Wagner MD have personally reviewed and interpreted this examination/study. > Interpreting Provider: Dread Wagner MD on 01/19/2025 4:59 PM Sameera Zurita MD DIAGNOSTIC IMAGING ORDERABLES Final Result from Last [address] [place] [address] MEDICA[place] [facility] [employer] [facility] Address: [address] [address] AETNA MEDICAID - OUT OF STATE AETNA AETNA PAYOR GENERIC [facility] [employer] GENERIC Advance Directives * Full Code (Latest Code Status on File) Date Activated Date Inactivated Comments 01/19/2025 8:20 PM 01/27/2025 2:36 PM * Full Code Date Activated Date Inactivated Comments 01/19/2025 8:17 PM 01/19/2025 8:20 PM * Full Code Date Activated Date Inactivated Comments 05/01/2017 10:56 PM 05/02/2017 3:41 PM 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 [place] [address] 01/19/25
--- OUTSIDE RECORDS SUMMARY | 2025-02-19 14:12 | XMS_ITS | Clinical Summary ---
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 20 tablet Active Social History Tobacco Use Types Packs/Day Years Used Date Smoking Tobacco: Never Smokeless Tobacco: Never Alcohol Use Standard Drinks/Week Comments Not Currently 0 (1 standard drink = 0.6 oz pur e alcohol) Sex and Gender Information Value Date Recorded Sex Assigned at Not on file Legal Sex Male 7:25 PM CDT Gender Identity Not on file Sexual Orientation Not on file Last Filed Vital Signs Vital Sign Reading Time Taken Comments Blood Pressure 109/60 02/23/2022 12:00 AM CDT Pulse 111 02/23/2022 12:00 AM CDT Temperature 37.6 C (99.6 F) 02/22/2022 7:39 PM CDT Respiratory Rate 16 02/23/2022 12:00 AM CDT Oxygen Saturation 98% 02/23/2022 12:00 AM CDT Inhaled Oxygen Concentration - - Weight 75.3 kg (166 lb) 02/22/2022 7:39 PM CDT Height 190.5 cm (6' 3) 02/22/2022 7:39 PM CDT Body Mass Index 20.75 02/22/2022 7:39 PM CDT Plan of Treatment Health Maintenance Due Date Last Done Comments Annual Physical 10/29/2006 HPV Vaccines (1 - Male 3-dos e series) 10/29/2018 Meningococcal B Vaccine (1 o f 2 - Standard) 2019 Hepatitis C 10/29/2021 DTaP, Tdap and Td Vaccines ( 1 - Tdap) 10/29/2022 Hepatitis B Vaccines (1 of 3 - 19+ 3-dose series) 10/29/2022 COVID-19 Vaccine (1 - 2023-2 5 season) 2024 Meningococcal Vaccine Aged Out No angela ian eligible based on patient's age to complete this topic Pneumococcal Vaccine: Pediat rics (0 to 5 Years) and At-Risk Patients (6 to 49 Years) Aged Out No longer eligible b ased on patient's age to complete this topic RSV Immunizations Under 20 Months Aged Out No longer eligible based on patient's age to complete this topic Insurance Care Teams Coding Machine Operator Relationship Specialty Start Date End Date Yoselin Ryan MD [address] [place] [address] PCP - General PEDIATRICS 02/22/22
--- OUTSIDE RECORDS SUMMARY | 2025-02-19 14:12 | XMS_ITS | Encounter Summary ---
Author Organization [facility] Address [address] [place] [address] Care Team Providers Care Threader Operator Name Role Phone Pcp, None Primary Care Provider Yoselin Holder MD Unavailable Reason for Visit * Reason Comments Transitions Of Care Encounter Details Date Type Department Care Team (Latest Contact Info) Description 01/28/2025 Transitional Care [facility] [place] [id number] Mary Molina, YANDEL Transitions Of Care Social History Tobacco Use Types Packs/Day Years Used Date Smoking Tobacco: Never Smokeless Tobacco: Never AUDIT-C Answer Date Recorded Q1: How often [...] and heating? Not hard at all 01/20/2025 [facility] [place] [facility] - Occupational Stress [...] any time in the past 12 m [facility], were you homeless or living in a long term (including now)? 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 Answer Date of Assessment Author No 01/20/2025 2:27 AM CDT George Montiel RN documented as of this encounter Mental Status * Does person have difficulty concentrating/remembering/making decisions? Answer Entry Date Author No 01/20/2025 2:27 AM CDT George Montiel RN documented in this encounter Plan of Treatment Upcoming Encounters Date Type Department Care Team (Late st Contact Info) Description 03/05/2025 2:15 PM CDT Office Visit [facility] - Neurosurgery [address] [place] [address], [place] [address] Tamiko Spears, SET ILLUSTRATOR-MULTIFOCAL LENS ASSEMBLER [address] [place] [address] 03/19/2025 9:00 AM CDT Office Visit [facility] - Orthopedics [address] [place] [address], [place] [id number] Brooke Fairchild MD [address] [place] [address] [place] [address] documented as of this encounter Visit Diagnoses Not on filedocumented in this encounter Care Teams Threader Operator Relationship Specialty Start Date End Date Pcp, None [address] [place] [address] PCP - General 01/19/25 Yoselin Ryna MD [address] [facility] [address] [place] [address] 01/19/25 documented as of this encounter
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
--- OUTSIDE RECORDS SUMMARY | 2025-02-19 14:12 | XMS_ITS | Clinical Summary ---
Author Organization [facility] Address [address] [place] [address] Phone Care Team Providers Care Assistant Women'S Rowing Coach Name Role Phone Provider, None Primary Care Provider Unavailabl e Allergies Active Allergy Reactions Criticality Noted Date Comments Amoxicillin Hives 06/06/2022 Medications metroNIDAZOLE (Flagyl) 500 MG Tablet Take 1 Tablet by mouth 3 times daily. 30 Tablet 06/06/2022 Active Social History Tobacco Use Types Packs/Day Years Used Date Smoking Tobacco: Never Smokeless Tobacco: Never Tobacco Cessation:Counseling Given: Not Answered Sex and Gender Information Value Date Recorded Sex Assigned at Not on file Legal Sex Male 4:14 PM [employer] Gender Identity Not on file Sexual Orientation Not on file Last Filed Vital Signs Vital Sign Reading Time Taken Comments Blood Pressure 130/82 06/06/2022 11:18 PM FARM [employer]ISER Pulse 112 06/06/2022 11:18 PM FARM APPRAISER Temperature 35.8 C (96.5 F) 06/06/2022 4:18 PM FARM AP[employer]ISER Respiratory Rate 20 06/06/2022 11:18 PM FARM AP[employer]ER Oxygen Saturation 99% 06/06/2022 11:18 PM FARM [employer]ER Inhaled Oxygen Concentration - - Weight 81.6 kg (180 lb) 06/06/2022 4:18 PM FARM APPRAISER Height 190.5 cm (6' 3) 06/06/2022 4:18 PM FARM AP[employer]ISER Body Mass Index 22.5 06/06/2022 4:18 PM FARM APPRAISER Plan of Treatment Health Maintenance Due Date Last Done Comments Hepatitis C Virus (HCV) Screening 2003 TdaP Immunization 2003 Human Papillomavirus (HPV) Immunization (1 - Male 3-dose series) 10/29/2018 Meningococcal B Immunization (1 of 2 - Standard) 2019 Hepatitis B Immunization (1 of 3 - 19+ 3-dose series) 10/29/2022 SARS-COV-2 Immunization (1 - 2023- season) 2024 Influenza Immunization (#1) 2025 11/0 01/2017, 03/04/2016, 03/04/2015, Additional history exists Respiratory Syncytial Virus (RSV) Immunization (Adult) (1 - 1-dose 75+ series) 10/29/2078 Meningococcal Immunization (ACWY) Aged Out No longer eligible based on patient's age to complete this topic Pneumococcal Immunization Combined Aged Out No longer eligible based on patient's age to complete this topic Rotavirus Immunization Aged Out No lo nger eligible based on patient's age to complete this topic Insurance MEDICAID [place] Care Teams Assistant Women'S Rowing Coach Relationship Specialty Start Date End Date Provider, None MD PCP - General 06/06/22
--- NOTE | 2025-02-19 14:28 | ED.URI ---
HPI - URI/Sore Throat General Chief Complaint: Upper Respiratory Infection Stated Complaint: sore throat/body pains Time Seen by Provider: 02/19/25 14:35 Source: patient Mode of arrival: ambulatory Limitations: no limitations History of Present Illness HPI Narrative: Yovani is a 19-year-old male patient presenting to the clinic today with complaints of runny nose, slight cough, sore throat, and body aches times x1 day. Has not taken any medications for his pain. Denies any shortness of breath or chest pain. Patient is tearful rates pain 9/10 currently. Related Data Allergies Allergy/AdvReac Type Severity Reaction Status Date / Time amoxicillin AdvReac Mild Rash Verified 04/04/24 19:17 Review of Systems Review of Systems: Pertinent positives per HPI. Patient denies any fever, chills, rash, headache, visual changes, dizziness, shortness of breath, chest pain, palpitations, nausea, vomiting, diarrhea, constipation, abdominal pain, or any urinary issues. [facility] Past Medical History Medical History Healthy adult male Surgical History Surgical History History of adenoidectomy History of placement of ear tubes H/O elbow surgery Family History Family History Other Carcinoma of colon Cerebrovascular accident Depression Diabetes mellitus Heart disease Hypertension Liver cancer Uterine cancer Social History Social History Substance use type: hallucinogens Gender identity (if verbalized by the patient): Male Comments At the time of my signature, I reviewed and agree with the nursing past medical, surgical, social, and family history. There is no relevant family history pertinent to the patient complaint. Exam Narrative: General: Well-developed, well nourished, acutely ill appearing. Tearful Head: Normocephalic, atraumatic Eyes: Pupils equally round and reactive to light bilaterally, EOM intact, sclera and conjunctive clear, no discharge, lids normal Ears: TMs intact and clear, ear canals clear, no drainage, grossly hearing normal. Nose: Nares patent, clear nasal discharge, mild inflammation, no sinus tenderness. Mouth: Oral pharynx red without lesions or masses, good dentition, MMM. Neck: Supple, trachea midline, no enlargement of anterior or posterior cervical nodes, no thyroid masses or goiter palpable. Cardio: Tachycardic- Regular rate and rhythm, s1 and s2 normal, no murmur appreciated. Resp: Clear to auscultation bilaterally, no rhonchi, rales, wheezing or rubs Course Course Emergency Course: Portions of this record may have been created with voice recognition software. Level of Care: Express Care Visit Vital Signs Vital signs: Vital Signs Temperature 37.2 C 02/19/25 14:31 Pulse Rate 133 H 02/19/25 14:31 Respiratory Rate 18 02/19/25 14:31 Blood Pressure 111/63 02/19/25 14:31 Pulse Oximetry 98 02/19/25 14:31 Temperature 37.2 C 02/19/25 14:31 Pulse Rate 133 H 02/19/25 14:31 Respiratory Rate 18 02/19/25 14:31 Blood Pressure 111/63 02/19/25 14:31 Pulse Oximetry 98 02/19/25 14:31 Vital signs reviewed MDM - URI/Sore Throat MDM Narrative Medical decision making narrative: At the time of visit patient is resting comfortably on the exam table. Patient appears to be nontoxic. Complaints of runny nose, slight cough, sore throat, and body aches times x1 day. Has not taken any medications for his pain. Denies any shortness of breath or chest pain. Patient is tearful rates pain 9/10 currently. On exam patient has clear nasal drainage with mild nasal congestion, oral pharynx is red without tonsillar enlargement, without cervical lymphadenopathy. Strep, COVID, and influenza testing were all ordered. Labs: COVID, flu, and strep test were all negative. We will send strep for culture. Plan: I suspect patient has URI/viral pharyngitis/viral syndrome. Supportive measures were discussed with the patient and they voiced understanding discharge instructions and agrees to treatment plan. Return precautions reviewed Differential Diagnosis Differential diagnosis: Likely upper respiratory infection, otitis media, sinusitis, viral infection, bronchitis, influenza, pharyngitis and other (COVID) Lab Data Labs: Lab Results 02/19/25 02/19/25 Range/Units 14:36 14:44 POC Influenza A Ag Negative (Negative) POC Influenza B Ag Negative (Negative) POC SARS CoV-2 Ag Negative (Negative) POC Grp A Strep Screen Negative (Negative) Discharge Plan Discharge Clinical Impression: Viral infection Upper respiratory infection Qualifiers: URI type: unspecified URI Qualified Code(s): J06.9 - Acute upper respiratory infection, unspecified Pharyngitis Qualifiers: Pharyngitis/tonsillitis etiology: unspecified etiology Qualified Code(s): J02.9 - Acute pharyngitis, unspecified Patient Disposition: Home Condition: Stable Instructions: Antibiotic Form, Pharyngitis (ED), Upper Respiratory Infection (ED), Viral Syndrome (ED) Additional Instructions: Strep test was negative in the clinic today. We will send strep for culture if this comes back positive we will contact him place you on antibiotics at that time. COVID and influenza testing was negative in the clinic today. May take DayQuil/NyQuil for cold/flu symptoms as per bottle directions-this medication does have Tylenol in it Increase fluids and stay well hydrated May take Tylenol or motrin as directed on bottle for pain/fever May use Flonase 1 spray in each nare daily May take OTC antihistamines such as Zyrtec or Claritin daily as directed on bottle May apply Vicks vapor rub to chest to open sinuses Sinus rinses for congestion Cepacol spray, cough drops, throat lozenges, warm tea with honey/lemon, gargle salt water to soothe throat BRAT diet for diarrhea Clear liquids x 24 hours then advance as tolerated for nausea/vomiting Go to the ED if you develop a worsening in your condition- high fever not controlled by Tylenol or Motrin, dehydration, weakness, lethargy, shortness of breath, or chest pain. Follow up with your PCP in 3-5 days if symptoms persist. Patient Language: Chinese Prescriptions: No Action famotidine [Pepcid] 20 mg tablet 20 mg PO BID Qty: 20 0RF ondansetron 4 mg tablet,disintegrating 4 mg PO Q8H PRN (Reason: nausea and vomiting) Qty: 20 0RF pantoprazole [Protonix] 40 mg tablet,delayed release (DR/EC) 40 mg PO HS 28 Days Qty: 28 0RF alum-mag hydroxide-simeth [Maalox Advanced] 200-200-20 mg/5 mL suspension 10 ml PO QID PRN (Reason: indigestion) Qty: 3000 0RF Rx Instructions: administer between meals and at bedtime Follow-up/Referrals: PHYSICIAN,KAIAWHINA KOHANGA REO [Primary Care Provider, Internal Medicine] Time of Disposition: 14:44 Quality NIHSS Nursing Documentation ED NIHSS nursing documentation: reviewed/agree
[2025-02-19 14:31] VITALS: BP 111/63; PULSE 133; RESP 18; TEMP 37.2; O2SAT 98
[2025-02-19 14:37] LABS: EDSTREPNEGPOS1 Negative (Negative)
[2025-02-19 14:46] LABS: EDCOVIDSCREEN Negative (Negative); EDINFLUASCREEN Negative (Negative); EDINFLUBSCREEN Negative (Negative)
== END 2025-02-19 14:57 | disposition home or self-care (01) ==
PROVIDERS: Emergency Provider Nurse Practitioner Family
DX: B34.9 Viral infection, unspecified (principal); J06.9 Acute upper respiratory infection, unspecified; J02.9 Acute pharyngitis, unspecified; Z20.822 Contact with and (suspected) exposure to COVID-19
CPT/HCPCS: 87081; 87426; 87804; 87880; 99213; G0463

== ENCOUNTER 2025-05-16 14:22 | Emergency (ER) | payer OTHER, SELFPAY ==
--- OUTSIDE RECORDS SUMMARY | 2025-05-15 07:02 | XMS_ITS | Continuity of Care Document ---
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 Role Phone Myra MICHAELMadison Unavailable Unavailable Procedures Procedure Date MICROFILM CLERK Acute Therapeutic Activities Neuromuscular Re-Ed Therapeutic Exercise Manual Therapy Therapeutic Activities Neuromuscular Re-Ed Therapeutic Exercise Manual Therapy Therapeutic Activities Neuromuscular Re-Ed Therapeutic Exercise Manual Therapy Therapeutic Activities Neuromuscular Re-Ed Therapeutic Exercise Manual Therapy Therapeutic Activities Neuromuscular Re-Ed Manual Therapy Therapeutic Activities Neuromuscular Re-Ed Manual Therapy MICROFILM CLERK Acute Therapeutic Activities Neuromuscular Re-Ed Manual Therapy Therapeutic Activities Neuromuscular Re-Ed Manual Therapy Therapeutic Activities Neuromuscular Re-Ed Manual Therapy Therapeutic Activities Manual Therapy Neuromuscular Re-Ed Therapeutic Activities Neuromuscular Re-Ed 5 Manual Therapy Therapeutic Activities Neuromuscular Re-Ed Mar- Manual Therapy Therapeutic Activities Neuromuscular Re-Ed Mar- Manual Therapy MICROFILM CLERK Acute Mar- Therapeutic Activities Mar- Neuromuscular Re-Ed Mar- Therapeutic Exercise Mar- Manual Therapy Therapeutic Activities Mar- Neuromuscular Re-Ed Mar- Therapeutic Exercise Mar- Manual Therapy Therapeutic Activities Neuromuscular Re-Ed Mar- Therapeutic Exercise Manual Therapy Therapeutic Activities Neuromuscular Re-Ed Mar- Therapeutic Exercise Mar- Manual Therapy Therapeutic Activities Neuromuscular Re-Ed Therapeutic Exercise Manual Therapy Therapeutic Activities Neuromuscular Re-Ed Mar- Therapeutic Exercise Manual Therapy PT Re-evaluation Therapeutic Activities Neuromuscular Re-Ed Therapeutic Exercise Manual Therapy Therapeutic Activities Neuromuscular Re-Ed Feb- Therapeutic Exercise Manual Therapy Therapeutic Activities Neuromuscular Re-Ed Feb- Therapeutic Exercise Manual Therapy Therapeutic Activities Neuromuscular Re-Ed Feb- Therapeutic Exercise Feb- Manual Therapy Therapeutic Activities Feb- Neuromuscular Re-Ed Feb- Manual Therapy Feb- Therapeutic Exercise Feb- Progress Note Feb- Therapeutic Activities Feb- Neuromuscular Re-Ed Feb- Therapeutic Exercise Feb- Manual Therapy Therapeutic Activities Neuromuscular Re-Ed Therapeutic Exercise Manual Therapy Therapeutic Activities Neuromuscular Re-Ed Therapeutic Exercise Manual Therapy Therapeutic Activities Neuromuscular Re-Ed Therapeutic Exercise Therapeutic Activities Neuromuscular Re-Ed Therapeutic Exercise Manual Therapy Therapeutic Activities Neuromuscular Re-Ed Therapeutic Exercise Manual Therapy Therapeutic Activities Neuromuscular Re-Ed Therapeutic Exercise Manual Therapy Therapeutic Activities Neuromuscular Re-Ed Therapeutic Exercise Manual Therapy Therapeutic Activities Therapeutic Exercise Neuromuscular Re-Ed PT Evaluation High Complexity Therapeutic Activities Neuromuscular Re-Ed Therapeutic Exercise Advance Directives Directive Yes / No Effective Date File Name No Information Encounters Encounter Description Practice Location Reason(s) For Visit Diagnoses Date Provider Providers Copied on Encounter [facility], [place], [place], [id number], tel:[phone] [place] No Information Myra Wallace. . [facility], [place], [place], [address], tel:[phone] [place] No Information J Carlos Noyola . Referring Provider: Nilay Marcelino, [address], [place], [address]. tel:[phone] [facility], [place], [place], [address], [place] tel:[phone] [place] No Information Scheldt Madison. . Referring Provider: Nilay Marcelino, [address], [place], [address]. tel:[phone] [facility], [facility] [address], [place], [place], [address], [place] tel:[phone] [place] No Information Eloy Ariza. . Referring Provider: Nilay Marcelino, [address], [place], [address]. tel:[phone], [place], [place], [address], [place] tel:[phone] [place] No Information Scheldt Madison. . Referring Provider: Joann Wil[address], [place], [address]. tel:[phone] [facility] [address], [place], [place], [address], [place] tel:[phone] [place] No Information Scheldt Madison. . Referring Provider: Brooke Fairchild, [address], [place], [address]. tel:[phone], [place], [place], [address], [place] tel:[phone] [place] No Information Scheldt Madison. . Referring Provider: Brooke Fairchild, [address], [place], [address]. tel:[phone] [place] [address], [place], [place], [address], tel:[phone] [place] No Information Scheldt Madison. . Referring Provider: Brooke Fairchild, [address], [place], [address]. tel:[phone] [address], [place], [place], [address], tel:[phone] [place] No Information Dandy Gomes. . Referring Provider: Brooke Fairchild, [address], [place], [address]. tel:[phone] [address], [place], [place], [address], tel:[phone] [place] No Information Eloy Richteri. . Referring Provider: Brooke Fairchild [address], [place], [address]. tel:[phone] [address], [place], [place], [address], tel:[phone] [place] No Information Eloy Richteri. . Referring Provider: Brooke Fairchild [address], [place], [address]. tel:[phone] [address], [place], [place], [address], tel:[phone] [place] No Information Eloy Richteri. . Referring Provider: Brooke Fairchild [address], [place], [address]. tel:[phone] [facility] [address] [facility], [place], [place], [address], tel:[phone] [place] No Information Mrya Wallace. . Referring Provider: Brooke Fairchild [address], [place], [address]. tel:[phone], [place], [place], [address], tel:[phone] [place] No Information Eloy Ariza. . Referring Provider: Brooke Fairchild, [address], [place], [address]. tel:[phone] [facility] [address], [place], [place], [address], [place] tel:[phone] [place] No Information J Carlos Vazquez. . Referring Provider: Brooke Fairchild [address], [place], [address]. tel:[phone] [address], [place], [place], [address], [place] tel:[phone] [place] No Information Eloy Ariza. . Referring Provider: Brooke Fairchild [address], [place], [address]. tel:[phone] [facility] [address] [place], [place] [address], [place], [place], [address], tel:[phone] [place] No Information Myra Wallace. . Referring Provider: Brooke Fairchild [address], [place], [address]. tel:[phone], [place], [place], [address], [place] tel:[phone] [place] No Information Laura Yoon. . Referring Provider: Brooke Fairchild [address], [place], [address]. tel:[phone] [facility], [address], [place], [place], [address], [place] tel:[phone] [place] No Information Eloy Ariza. . Referring Provider: Brooke Fairchild, [address], [place], [address]. tel:[phone] [facility] [address], [place], [place], [address], [place] tel:[phone] [place] No Information Elsa Arellano. . Referring Provider: Brooke Fairchild [address], [place], [address]. tel:[phone] [facility] [address], [place], [place], [address], [place] tel:[phone] [place] No Information Elsa Arellano. . Referring Provider: Brooke Fairchild [address], [place], [address]. tel:[phone] [facility] [address], [place], [place], [address], [place] tel:[phone] [place] No Information Dandy Gomes. . Referring Provider: Brooke Fairchild [address], [place], [address]. tel:[phone] [facility] [address], [place], [place], [address], [place] tel:[phone] [place] No Information Elsa Arellano. . Referring Provider: Brooke Fairchild [address], [place], [address]. tel:[phone] [facility], [place], [place], [address], tel:[phone] [place] No Information Elsa Arellano. . Referring Provider: Tonnytoño Fairchild[address]isela[address], [place], [address]. tel:[phone] [facility], [facility] [address], [place], [place], [address], [place] tel:[phone] [place] No Information Eloy Ariza. . Referring Provider: Brooke FairchildMarisela[address], [place], [address]. tel:[phone] [facility] [address], [place], [place], [address], tel:[phone] [place] No Information Myra Wallace. . Referring Provider: Brooke Fairchild [address], [place], [address]. tel:[phone] [facility] [address], [place], [place], [address], tel:[phone] [place] No Information Myra Wallace. . Referring Provider: Brooke Fairchild [address], [place], [address]. tel:[phone] [facility], [address], [place], [place], [address], [place] tel:[phone] [place] No Information Elsa Arellano. . Referring Provider: Brooke Fairchild [address], [place], [address]. tel:[phone] [facility] [address], [place], [place], [address], [place] tel:[phone] [place] No Information J Carlos Vazquez. . Referring Provider: Tonnytoño Fairchild, [address], [place], [address]. tel:[phone] [facility], [address] [place] [address] [address], [place], [place], [address], tel:[phone] [place] No Information Elsa Arellano. . Referring Provider: Junitomarkell Fairchild, [address], [place], [address]. tel:[phone], [place], [place], [address], tel:[phone] [place] No Information Elsa Arellano. . Referring Provider: Brooke Fairchild [address], [place], [address]. tel:[phone], [place], [place], [address], [place] tel:[phone] [place] No Information Eloy Ariza. . Referring Provider: Junitomarkell Fairchild, [address], [place], [address]. tel:[phone], [place], [place], [address], [place] tel:[phone] [place] No Information Elsa Arellano. . Referring Provider: Tonnytoño Fairchild [address], [place], [address]. tel:[phone], [place], [place], [address], tel:[phone] [place] No Information Myra Wallace. . Referring Provider: Brooke Felipeov, [address], [place], [address]. tel:[phone] [facility], [address] [facility] [facility], [place], [place], [address], tel:[phone] [place] No Information cornelius Adan. . Referring Provider: Brooke Gutierreznayeli, [address], [place], [address]. tel:[phone] Family History Family Member Type Diagnosis Age At Onset No Information Payers Payer name Insurance type Covered libertarian ID Authoriza lon(s) [employer] [facility] [id number] [employer] - [employer] SP [id number] Social History Type Description Quantity Date Captured Comments Sex Male Smoking Status No Information Chief Complaint And Reason For Visit No Information Reason For Referral Reason For Referral No Information Plan Of Treatment Date Type Action Status Appointment Yovani Cameron BOOKED Appointment Yovani Cameron BOOKED Appointment Yovani Cameron BOOKED Appointment Yovani Cameron BOOKED Appointment Yovani Cameron BOOKED Appointment Yovani Cameron BOOKED History Of Present Illness Encounter Date Complaint History Of Prese nt Illness No Information Functional Status Date Functional Assessmen t No Information Instructions Date Instruction Additional Infor mation No Information Assessments Type Assessment Date No Information Patient Care Teams Name Effective Dates (start - stop) Status Members No Information
--- NOTE | ~2025-05-16 | XR_ITS ---
EXAMINATION: XR chest 2V, 05/16/2025 14:54 HALF SO[facility] HISTORY: cough,hx of 1-12 LT rib fxs COMPARISON: No comparisons available. Technique: 2 views obtained. Findings: The lungs are clear, no effusion. No pneumothorax. Heart is normal size. Mediastinal and hilar contours are within normal limits. Bony thorax no acute abnormality. Impression: No acute cardiopulmonary abnormality. Reviewed, dictated and finalized at location P. SOLE FITTER Impression: No acute cardiopulmonary abnormality.
--- OUTSIDE RECORDS SUMMARY | 2025-05-16 14:25 | XMS_ITS | Clinical Summary ---
Author Organization [facility] Address [address] [place] [address] Care Team Providers Care Recreation Engineer Name Role Phone Pcp, None Primary Care Provider Yoselin Holder MD Unavailable Source Comments [facility],non-owned Affiliates and Associated Physician Practices is amultiple site organization consisting of ambulatory clinics and hospital sitesin [place], [place], [place] and [place]. This disclosure is being madepursuant to the Care Everywhere program and may not contain all information available regarding this patient. Last updated 18.[facility] Allergies Active Allergy Reactions Criticality Noted Date [...] the patient. hydrOXYzine HCl (Atarax) 25 MG tabletIndications:A gitation,Anxiety Take 1 (one) tablet by mouth 3 times daily as needed for Itching Reasons: Agitation, Feeling Anxious 21 tablet 5 1:39 PM CDT 01/27/20 25 Active Additional Information Patient not taking.Reported on 03/05/2025 apixaban (Eliquis) 2.5 MG tabletIndications:P rophylaxis of Venous Thromboembolism Take 1 (one) tablet by mouth 2 times daily for 35 days Reasons: Prevention of Unwanted Clot in Veins 70 tablet 5 1:39 PM CDT 01/27/20 25 Active Additional Information Patient not taking.Reported on 03/05/2025 senna-docusate (Senokot-S) 8.6-50 MG tablet Take 2 (two) tablets by mouth 2 times daily 21 tablet 5 1:39 PM CDT 01/27/20 25 Active Additional Information Patient not taking.Reported on 03/05/2025 vitamin D3 (Cholecalciferol) 25 MCG (1000 UNITS) tablet Take 1 (one) tablet by mouth once daily for 90 days 30 tablet 2 1:39 PM CDT 01/28/20 25 Active Additional Information Patient not taking.Reported on 03/05/2025 gabapentin (Neurontin) 100 MG capsuleIndications: Acute blood loss anemia,Closed fracture of shaft of [...] times daily for 30 days 180 capsule 02/17/20 25 Active Additional Information Patient not taking.Reported on 03/05/2025 methocarbamol (Robaxin) 750 MG tablet Take 1 (one) tablet by mouth every 6 hours 30 tablet 02/17/20 25 Active Additional Information Patient not taking.Reported on 03/05/2025 oxyCODONE (Oxy-Ir) 5 MG capsuleIndications: Trauma Take 1 (one) capsule by mouth every 6 hours as needed for Pain 10 capsule 02/18/20 25 Active Additional Information Patient not taking.Reported on 03/05/2025 Active Problems Problem Noted Date Diagnosed Date [...] 05/02/2017 Assessment & Plan (05/02/2017 2:54 PM PARK ACTIVITIES COORDINATOR): Assessment: Brittany reports 2 day history of sore throat w/ nasal congestion and rinnorhea. Rapid strep test at urgent care was negative. Pharyngeal edema and post nasal drip noted on physical exam. Blood culture results are pending. PT did receive single dose of Rocephin in ED. Plan: -No continuance of antibiotic treatment indicated at this time Assessment & Plan (05/02/2017 12:35 PM PARK ACTIVITIES COORDINATOR): Assessment: Brittany had a couple days of [...] 05/02/2017 Assessment & Plan (05/02/2017 2:50 PM PARK ACTIVITIES COORDINATOR): Assessment: Brittany is a 11 y/o [place] male with no significant PMH who presents for work up of syncope. PT and mom report he has had 3 episodes of syncope in the last 6 month, 2 while singing in yazdanism and 1 yesterday afternoon. PT reports that [...] week Assessment & Plan (05/02/2017 12:34 PM PARK ACTIVITIES COORDINATOR): Assessment: Brittany is an otherwise healthy male [...] week Assessment & Plan (05/01/2017 11:20 PM PARK ACTIVITIES COORDINATOR): Assessment: Brittany is an otherwise healthy 11 [...] Encounters Date Type Department Care Team Description 03/18/2025 Orders Only [facility] - Orthopedics [address] [place] [phone] Brooke Fairchild MD Closed nondisplaced fracture of anterior wall of left acetabulum, initial encounter (HCC) ; Closed fracture of shaft of right femur with routine healing, unspecified fracture morphology, subsequent encounter 03/05/2025 2:33 PM CDT - 03/05/2025 11:59 PM CDT Hospital Encounter [facility] DIAGNOSTIC RAD OP [address] [place] [address] Sameera Zurita MD Discharge Disposition: Home or Self Care 03/05/2025 2:15 PM CDT Office Visit [facility] - Neurosurgery [address] [place] [phone] Tamiko Spears, PROTECTIVE CLOTHING ISSUER-FISHING TACKLE REPAIRER Closed nondisplaced fracture of seventh cervical vertebra with routine healing, unspecified fracture morphology, subsequent encounter (Primary Dx) 03/05/2025 Travel 02/17/2025 Orders Only [facility] PHYS SURGERY [facility] [place] [phone] Waldo Alvarez MD Trauma 02/16/2025 Refill [facility] PHYS SURGERY [address] [place] [address] Norberto Wilson MD MEDICATION REFILL 02/16/2025 Telephone [facility] - Orthopedics [address] [place] [address] [place] [address] Brooke Fairchild MD Refill Request from Last 3 Months Immunizations Immunization Administration [...] Hx Hypercholesterolemia Neg Hx Hypertension Neg Hx WI Neg Hx Marfan Syndrome Neg Hx Osteoporosis Neg Hx Rheumatological Disease Neg Hx Scoliosis Neg Hx Severe Sprains Neg Hx Sickle Cell Anemia Neg Hx Sudd. <30 Neg Hx Thyroid Disease Neg Hx Relation Name Status Comments Maternal Grandfather Maternal Grandmother Social History Tobacco Use Types Packs/Day Years Used Date Smoking Tobacco: Never Smokeless Tobacco: Never Tobacco Cessation:Counseling Given: No Alcohol Use Standard Drinks/Week Comments Not Currently [...] and heating? Not hard at all 01/20/2025 [place] [facility] - Occupational Stress [...] any time in the past 12 m [facility], were you homeless or living in a long term (including now)? No 01/20/2025 Sex and Gender Information Value Date Recorded Sex Assigned at Not on file Legal Sex Male 5:44 AM PARK ACTIVITIES COORDINATOR Gender Identity Not on file Sexual Orientation Not on file Last Filed Vital Signs Vital Sign Reading Time Taken Comments Blood Pressure 100/66 03/05/2025 2:14 PM CDT Pulse 106 03/05/2025 2:14 PM CDT Temperature 37.1 C (98.8 F) 03/05/2025 2:14 PM CDT Respiratory Rate 20 02/02/2025 9:05 AM CDT Oxygen Saturation 99% 03/05/2025 2:14 PM CDT Inhaled Oxygen Concentration - - Weight 84.8 kg (187 lb) 03/05/2025 2:14 PM CDT Height 193 cm (6' 4) 03/05/2025 2:14 PM CDT Body Mass Index 22.76 03/05/2025 2:14 PM CDT Plan of Treatment Health Maintenance Due Date Last Done Comments HIV SCREENING 10/29/2018 HPV VACCINE (1 - Male 3-dose series) 10/29/2018 MENINGOCOCCAL (Group B) VACC INE SHARED DECISION-MAKING (1 of 2 - Standard) 2019 HEPATITIS C SCREENING 10/25/2021 HEPATITIS B VACCINE (1 of 3 - 19+ 3-dose series) 10/29/2022 DEPRESSION SCREENING 06/25/2024 COVID-19 VACCINE (1 - 2024-2 6 season) 2025 INFLUENZA VACCINE (#1) 2025 05/02/2017 DTAP/TDAP/TD VACCINES [...] this topic Medical Devices Implanted Type Area Marble Rubber Device Identifier Shelf Expiration Date Model / Serial / Lot Rfna / 11mm / 400mm Standard Bend / Sterile Implanted:Qty: 1 on 01/20/2025 by Brooke Fairchild MD at [facility] Right: [employer] [facility] 11/[birth year]/2034 [id number] / / [id number] Tulio Screw 5mm 42mm Lck Bone Implanted:Qty: 1 on 01/20/2025 by Brooke Fairchild MD at [facility] Right: [employer] [id number] BILL ONLY / / Tulio Screw 5mm 60mm Lck Im Nail Bone Implanted:Qty: 1 on 01/20/2025 by Brooke Fairchild MD at [facility] Right: [employer] [id number] BILL ONLY / / Tulio Screw 5mm 90mm Lck Im Nail Bone Implanted:Qty: 1 on 01/20/2025 by Brooke Fairchild MD at [facility] Right: [employer] [facility] [id number] BILL ONLY / / Procedures Procedure Name Priority Date/Time Associated Diagnosis Comments XR CERVICAL SPINE 4 OR 5VW Routine 03/05/2025 2:42 PM CDT Fall from tree, initial encounter from Last 3 Months Results * XR Cervical Spine 4 or 5Vw (03/05/2025 2:42 PM CDT) Anatomical Region Laterality Modality Spine Digital Radiogra phy 03/06/2025 9:08 PM CDT Impressions 03/06/2025 9:09 PM CDT IMPRESSION: .Unremarkable radiographs of the spine. > Interpreting Provider: Job Sood MD on 03/06/2025 9:09 PM Narrative 03/06/2025 9:09 PM CDT PROCEDURE: XR CERVICAL SPINE 4 OR 5VW DATE/TIME OF EXAM: 03/05/2025 2:42 PM CLINICAL INFORMATION: None relevant/not provided if blank. Indication: W14.XXXA: Fall from tree, initial encounter Additional History: COMPARISON: 01/21/2025. FINDINGS: Alignment: .The alignment of the spine is maintained. Vertebral body heights: .Vertebral body heights are normally maintained. No acute fractures seen. Disc spaces: Disc spaces are maintained. Posterior elements: .Unremarkable. Paraspinal soft tissues: .Unremarkable. Others: . Procedure Note Job Sood MD - 03/06/2025 PROCEDURE: XR CERVICAL SPINE 4 OR 5VW DATE/TIME OF EXAM: 03/05/2025 2:42 PM CLINICAL INFORMATION: None relevant/not provided if blank. Indication: W14.XXXA: Fall from tree, initial encounter Additional History: COMPARISON: 01/21/2025. FINDINGS: Alignment: .The alignment of the spine is maintained. Vertebral body heights: .Vertebral body heights are normally maintained.No acute fractures seen. Disc spaces: Disc spaces are maintained. Posterior elements: .Unremarkable. Paraspinal soft tissues: .Unremarkable. Others: . IMPRESSION: .Unremarkable radiographs of the spine. > Interpreting Provider: Job Sood MD on 59:09 PM Sameera Zurita MD DIAGNOSTIC IMAGING ORDERABLES Final Result from Last 3 Months Insurance [facility] [place]ID - [place] [facility] AETNA MEDICAID - OUT OF STATE AETNA AETNA WC PAYOR GENERIC [facility] PAYOR GENERIC Advance Directives * Full Code (Latest Code Status on File) Date Activated Date Inactivated Comments 01/19/2025 8:20 PM 01/27/2025 2:36 PM * Full Code Date Activated Date Inactivated Comments 01/19/2025 8:17 PM 01/19/2025 8:20 PM * Full Code Date Activated Date Inactivated Comments 05/01/2017 10:56 PM 05/02/2017 3:41 PM Care Teams Recreation Engineer Relationship Specialty Start Date End Date Pcp, None [address] [place] [address] PCP - General 01/19/25 Yoselin Ryan MD [address] [place] [address] [address] [place] [address] 01/19/25
--- OUTSIDE RECORDS SUMMARY | 2025-05-16 14:25 | XMS_ITS | Encounter Summary ---
Author Organization [facility] Address [address] [place] [address] Care Team Providers Care Pediatrician/Medical Doctor Name Role Phone Pcp, None Primary Care Provider Yoselin Holder MD Unavailable Reason for Visit * Reason Comments Transitions Of Care Encounter Details Date Type Department Care Team (Latest Contact Info) Description 01/28/2025 Transitional Care [facility] COORDINATION [address] [place] [phone] Mary Molina, RN Transitions Of Care Social History Tobacco Use [...] and heating? Not hard at all 01/20/2025 [place] [facility] Occupat ional Health - Occupational Stress [...] any time in the past 12 m [facility], were you homeless or living in a halfway (including now)? No 01/20/2025 Sex and Gender Information Value Date Recorded Sex Assigned at Not on file Legal Sex Male 5:44 AM ADJUNCT COMMUNICATIONS FACULTY MEMBER Gender Identity Not on file Sexual Orientation [...] of Assessment Author No 01/20/2025 2:27 AM Goerge Mota RN * Does person have difficulty dressing/bathing? Answer Date of Assessment Author No 01/20/2025 2:27 AM George Mota RN * Does person have difficulty doing errands alone? Answer Date of Assessment Author No 01/20/2025 2:27 AM George Mota RN documented as of this encounter Mental Status * Does person have difficulty concentrating/remembering/making decisions? Answer Entry Date Author No 01/20/2025 2:27 AM George Mota, RN documented in this encounter Plan of Treatment Not on file documented as of this encounter Visit Diagnoses Not on filedocumented in this encounter Care Teams Pediatrician/Medical Doctor Relationship Specialty Start Date End Date Pcp, None [address] [place] [address] PCP - General 01/19/25 Yoselin Ryan MD [address] [facility] [address] [place] [address] 01/19/25 documented as of this encounter
--- OUTSIDE RECORDS SUMMARY | 2025-05-16 14:25 | XMS_ITS | Clinical Summary ---
Author Organization [facility] Address [address] [place] [address] Phone Care Team Providers Care Investigation Division Sergeant Name Role Phone Provider, None Primary Care [...] on file Legal Sex Male 4:14 PM NARROW FABRIC CALENDERER Gender Identity Not on file Sexual Orientation Not on file Last Filed Vital Signs Vital Sign Reading Time Taken Comments Blood Pressure 130/82 06/06/2022 11:18 PM NARROW FABRIC CALENDERER Pulse 112 06/06/2022 11:18 PM NARROW FABRIC CALENDERER Temperature 35.8 C (96.5 F) 06/06/2022 4:18 PM NARROW FABRIC CALENDERER Respiratory Rate 20 06/06/2022 11:18 PM NARROW FABRIC CALENDERER Oxygen Saturation 99% 06/06/2022 11:18 PM NARROW FABRIC CALENDERER Inhaled Oxygen Concentration - - Weight 81.6 kg (180 lb) 06/06/2022 4:18 PM NARROW FABRIC CALENDERER Height 190.5 cm (6' 3) 06/06/2022 4:18 PM NARROW FABRIC CALENDERER Body Mass Index 22.5 06/06/2022 4:18 PM NARROW FABRIC CALENDERER Plan of Treatment Health Maintenance Due Date Last Done Comments Hepatitis C Virus (HCV) Screening 2003 TdaP Immunization 2003 Varicella Immunization (1 of 2 - 13+ 2-dose series) 10/29/2016 Human Papillomavirus (HPV) Immunization (1 - Male 3-dose series) 10/29/2018 Meningococcal B Immunization (1 of 2 - Standard) 2019 Hepatitis B Immunization (1 of 3 - 19+ 3-dose series) 10/29/2022 Influenza Immunization (#1) 2025 11/0 01/2017, 03/04/2016, 03/04/2015, Additional history exists SARS-COV-2 Immunization (1 - 2024- season) 2025 Respiratory Syncytial Virus (RSV) Immunization (Adult) (1 [...] Insurance MEDICAID BLUE CROSS [place] Care Teams Investigation Division Sergeant Relationship Specialty Start Date End Date Provider, None [place] PCP - General 06/06/22
--- OUTSIDE RECORDS SUMMARY | 2025-05-16 14:25 | XMS_ITS | Clinical Summary ---
Author Organization [facility] Address [address] [place] [address] Care Team Providers Care Powerhouse Mechanic Name Role Phone No, Physician Primary Care Provider [phone] Allergies Active Allergy Reactions Criticality Noted Date [...] of left foot 02/21/2023 Immunization, tetanus-diphtheria 02/21/2023 Immunizations Immunization Administration Dates Next Due Tdap [...] patient's age to complete this topic Insurance [address] Care Teams Powerhouse Mechanic Relationship Specialty Start Date End Date No, Physician PCP - General 02/21/23
[2025-05-16 14:31] VITALS: BP 140/95; PULSE 73; RESP 18; TEMP 36.8; O2SAT 100
--- NOTE | 2025-05-16 14:43 | ED.URI ---
HPI - URI/Sore Throat General Chief Complaint: Upper Respiratory Infection Stated Complaint: Chest Congestion/Back and Rib Pain Time Seen by Provider: 05/16/25 14:45 Source: patient, RN notes reviewed and old records reviewed Mode of arrival: ambulatory Limitations: no limitations History of Present Illness HPI Narrative: 19 year old male presents to express care with complaints of having general cold symptoms since the of month and seemed to get better till last night, cough has increased with congestion. Patient reports that he has some pain to his left scapula area and also to his left rib, reports that he had fractured ribs when he fell while trimming trees in December of 2024. He states that he also had femur fracture and brain bleed from fall. Patient reports no known fevers, has been taking OTC cold medication. MD elicited complaint: cough, rhinorrhea, nasal congestion, sinus pain and other (pain left scapula and left ribs) Pertinent past history: pneumonia and other (reports previous rib fractures) Onset (ago): day(s) (initial cold symptoms since with increased symptoms since last night) Pain scale (0-10): 5 Description of mucous: green Able to tolerate fluids by mouth: Yes Treatments prior to arrival: cold medicine Related Data Allergies Allergy/AdvReac Type Severity Reaction Status Date / Time amoxicillin AdvReac Mild Rash Verified 04/04/24 19:17 Review of Systems Review of Systems: CONSTITUTIONAL: Denies malaise, chills, sweats, or fever. EYES: Denies visual changes, redness, or discharge. ENT: Reports rhinorrhea, congestion, sinus pain,no otalgia and no sore throat. CARDIOVASCULAR: Denies chest pain, palpitations, or edema.reports left scapula discomfort and left rib pain RESPIRATORY: Reports cough productive green phlegm.? Denies dyspnea. GASTROINTESTINAL: Denies abdominal pain, nausea, vomiting, diarrhea SKIN: Denies rash or itching. MUSCULOSKELETAL: Denies myalgia. NEUROLOGIC: Denies headache. All systems reviewed & are unremarkable except as noted in HPI and below PMFSH Past Medical History Medical History (Updated 05/18/25 @ 09:14 by Corry Vogel APRN) Femur fracture Brain bleed Rib fracture Fracture of left elbow Healthy adult male Surgical History Surgical History History of adenoidectomy History of placement of ear tubes H/O elbow surgery Family History Family History Other Carcinoma of colon Cerebrovascular accident Depression Diabetes mellitus Heart disease Hypertension Liver cancer Uterine cancer Social History Social History (Updated 05/18/25 @ 09:09 by Corry Vogel APRN) Smoking status: Unknown if ever smoked Alcohol intake: current Alcohol use details: social Substance use type: does not use and hallucinogens Gender identity (if verbalized by the patient): Male Comments At time of signature, agree with nursing past medical, surgical, social and family history. There is no relevant family history pertinent to the presenting complaint Exam Narrative: GENERAL: Well-appearing, well-nourished, and in no acute distress. HEAD: Normocephalic EYES: PERRLA, conjunctivae clear ENT: Nares clear, turbinates edematous and erythematous, clear discharge, sinus pressure. Mucous membranes moist. TM pearly hawthorne with dull light reflex bilaterally; no tragal tenderness. Oropharynx erythematous without lesions. Tonsils not enlarged and without exudate, no drooling, no hoarseness, no trismus, uvula midline.post nasal drainage present NECK: Supple. No lymphadenopathy CHEST: Clear to auscultation, breath sounds equal. No wheezing, rhonchi, rales, or stridor. No respiratory distress, speaks in full sentences.scapula pain left and left rib pain cough productive green mucous, SAO2 100% on room air HEART: Regular rate and rhythm. No murmur heard. SKIN: Warm, dry, no rash. NEURO: Alert and oriented x3. PSYCH: Normal mood and affect Course Course Emergency Course: Patient is aware of diagnosis, understands and agrees to treatment plan.? Anticipatory guidance given.? Patient agrees to follow-up as directed and is aware of reasons to seek care at the emergency department. Portions of this record may have been created with voice recognition software Level of Care: Express Care Visit Vital Signs Vital signs: Vital Signs Temperature 36.8 C 05/16/25 14:31 Pulse Rate 73 05/16/25 14:31 Respiratory Rate 18 05/16/25 14:31 Blood Pressure 140/95 H 05/16/25 14:31 Pulse Oximetry 100 05/16/25 14:31 Oxygen Delivery Room Air 05/16/25 14:31 Temperature 36.8 C 05/16/25 14:31 Pulse Rate 73 05/16/25 14:31 Respiratory Rate 18 05/16/25 14:31 Blood Pressure 140/95 H 05/16/25 14:31 Pulse Oximetry 100 05/16/25 14:31 Oxygen Delivery Room Air 05/16/25 14:31 Reviewed MDM - URI/Sore Throat MDM Narrative Medical decision making narrative: Differential diagnosis considered: Sung virus, strep pharyngitis, allergic rhinitis, upper respiratory tract infection, sinusitis, rhinosinusitis, nasopharyngitis. viral pharyngitis, otitis media, otitis externa, pneumonia, bronchitis, viral cough syndrome, viral syndrome, and influenza.? Exam findings show no acute concerns or changes; patient is non-toxic appearing and is in no distress.? Patient is appropriate for outpatient treatment and follow-up. Differential Diagnosis Differential diagnosis: Likely upper respiratory infection, sinusitis, viral infection and other (cough,pneumonia) Medical Records Attestation: I reviewed the patient's medical records. Lab Data Attestation: I reviewed the patient's lab results. Imaging Data Attestation: I personally reviewed and interpreted this imaging study as follows: My impression: no acute cardiopulmonary abnormality Radiologist's impression: [place] [address] XRay Report Signed Patient: Yovani Cameron : 2005 MR#: [id number] Age: 19 Acct:[id number] Loc: [facility] ADM Date: 05/16/[address]: Ordering Physician: Corry Vogel APRN Date of Service: 05/16/25 Procedure(s): XR chest 2V Accession Number(s): [id number] cc: RECREATION TECHNICIAN PHYSICIAN; Corry Vogel APRN~ EXAMINATION: XR chest 2V, 05/16/2025 14:54 SECURITY MESSENGER HISTORY: cough,hx of 1-12 LT rib fxs COMPARISON: No comparisons available. Technique: 2 views obtained. Findings: The lungs are clear, no effusion. No pneumothorax. Heart is normal size. Mediastinal and hilar contours are within normal limits. Bony thorax no acute abnormality. Impression: No acute cardiopulmonary abnormality. Reviewed, dictated and finalized at location P. RITY MESSENGER Please be advised this is a medical document. It is intended for [id number] communication. It is written in medical language and may contain unfamiliar abbreviations or verbiage. Medical documents are intended to carry relevant information, facts as evident, and the clinical opinion of the practitioner at the time of the encounter. This report may have been done utilizing a voice recognition system. Attempts have been made to correct errors. However, there may be uncorrected grammatical, spelling, and recognition errors present. The file time of this note does not necessarily represent the time of service. Dictated By: Austyn Flores MD 05/16/25 1517 Signed By: <Electronically signed by Austyn Flores MD in OV> Critical Care Time Critical Care Time Critical Care Time: No Discharge Plan Discharge Clinical Impression: Sinusitis Qualifiers: Sinusitis location: pansinusitis Chronicity: acute Recurrence: non-recurrent Qualified Code(s): J01.40 - Acute pansinusitis, unspecified Cough Qualifiers: Cough type: subacute Qualified Code(s): R05.2 - Subacute cough Patient Disposition: Home Condition: Stable Instructions: Antibiotic Form, Sinusitis (ED), Acute Cough (ED) Additional Instructions: Increase fluids especially juices and water Qqdz-cok-frkzzkx cough and cold medicine of your choice for your symptoms recommend Robitussin or Delsym cough syrup Zyrtec Claritin or Kimberly daily heat to the face 20-30 minutes 4-6 times a day for pain Salt water gargles, throat lozenges or throat sprays as desired Antibiotic as directed--finish the medication If your symptoms persist, change or worsen significantly before you can contact your personal physician then please, without delay, go to the emergency department for further evaluation. Follow-up with PCP in 7-10 days or sooner if needed Follow up with PCP soon in regards to your blood pressure which is elevated above threshold for referral. Blood pressure above 120/80 may indicate pre-hypertension. 140/95 Patient Language: Syrian Prescriptions: New azithromycin 250 mg tablet See Rx Instructions .ROUTE .COMPLEX Qty: 6 0RF Rx Instructions: For 250 mg dose pack: take 500 mg today (day 1), then 250 mg for 4 days (days 2-5) Follow-up/Referrals: PHYSICIAN,RECREATION TECHNICIAN [Primary Care Provider, Internal Medicine] Time of Disposition: 15:33 Quality Philippe Coma Scale Eyes: Open Verbal: Oriented and Alert Motor: Follows Commands Philippe Coma Total Score: 15
== END 2025-05-16 15:36 | disposition home or self-care (01) ==
PROVIDERS: Emergency Provider Registered Nurse
DX: J01.40 Acute pansinusitis, unspecified (principal); R05.2 Subacute cough
CPT/HCPCS: 71046; 99213; G0463